=== PATIENT | female | born 1955 | race Caucasian/White ===

== ENCOUNTER → 2019-05-06 10:28 | Outpatient (CLI) | payer MEDICARE, SELFPAY ==
[2019-05-06 12:23] LABS: Absolute Lymphocyte Count 1.42 X10^3/uL (0.83-4.51); Absolute Neutrophil Count 1.7 X10^3/uL (2.0-7.7); Basophil# 0.03 X10^3/uL; Basophil% 0.8 % (0-1); Eosinophil# 0.14 X10^3/uL; Eosinophils% 3.8 % (0-5); Hematocrit 37.9 % (37-47); Hemoglobin 12.8 g/dL (12.0-15.0); Lymphocyte # 1.42 X10^3/ul (4.0); Lymphocyte % 38.3 % (19-41); Mean Corp Hgb Conc 33.8 g/dL (32-36); Mean Corpuscular Hgb 32.7 pg (27.0-32.0); Mean Corpuscular Volume 96.7 fL (81-99); Mean Platelet Vol. 10.9 fl (6.2-12.0); Monocyte# 0.42 X10^3/uL; Monocyte% 11.3 % (0-10); NRBC Flagged by Analyzer 0 % (0-5); Neutrophil % 45.8 % (47-70); Platelet Count 226 K/mm3 (150-450); RBC Distribution Width CV 12.4 % (11.6-14.6); Red Blood Count 3.92 M/mm3 (4.2-5.4); White Blood Count 3.7 K/mm3 (4.4-11.0)
[2019-05-06 12:46] LABS: ALB/GLOB Ratio 1.2 RATIO (0.9-2.4); AST(SGOT) 17 U/L (15-37); Alanine Aminotransfer ALT/SGPT 22 U/L (13-56); Alkaline Phosphatase 42 U/L (45-117); Anion Gap 9 (5-15); BUN 12 mg/dL (7-18); BUN/Creat Ratio 14.8 RATIO (10-20); Calcium,Total 9.3 mg/dL (8.5-10.1); Chloride 106 mmol/L (98-107); Cholesterol 250 mg/dL (200); Creatinine, Serum 0.81 mg/dL (0.55-1.02); EST Glomerular Filtration Rate 75 mL/min (>60); Est Glom Filt Rate - Afr Amer 91 mL/min (>60); Globulin 3.3 g/dL (2.2-4.2); Glucose 99 mg/dL (74-106); High Density Lipoprotein 75 mg/dL; Potassium 4.3 mmol/L (3.5-5.1); Protein, Total 7.3 g/dL (6.4-8.2); Sodium Level 141 mmol/L (136-145); Thyroid Stim Hormone (TSH) 1.58 uIU/mL (0.358-3.74); Triglycerides 118 mg/dL; Very Low Density Lipoprotein 24 mg/dL (5-40)
== END ==
PROVIDERS: Family Provider Family Medicine; PCP Family Medicine; Visit Provider Family Medicine
DX: E78.5 Hyperlipidemia, unspecified (principal); R53.83 Other fatigue
CPT/HCPCS: 36415; 80053; 80061; 84443; 85025

== ENCOUNTER → 2021-01-28 10:01 | Outpatient (CLI) | payer MEDICARE, SELFPAY ==
[2021-01-28 12:49] LABS: Absolute Lymphocyte Count 1.63 X10^3/uL (0.83-4.51); Absolute Neutrophil Count 2.1 X10^3/uL (2.0-7.7); Basophil# 0.03 X10^3/uL; Basophil% 0.7 % (0-1); Eosinophil# 0.21 X10^3/uL; Eosinophils% 4.7 % (0-5); Hematocrit 39.5 % (37-47); Hemoglobin 12.9 g/dL (12.0-15.0); Lymphocyte # 1.63 X10^3/ul (0.83-4.51); Lymphocyte % 36.8 % (19-41); Mean Corp Hgb Conc 32.7 g/dL (32-36); Mean Corpuscular Hgb 31.5 pg (27.0-32.0); Mean Corpuscular Volume 96.6 fL (81-99); Mean Platelet Vol. 10.6 fl (6.2-12.0); Monocyte# 0.41 X10^3/uL; Monocyte% 9.3 % (0-10); NRBC Flagged by Analyzer 0 % (0-5); Neutrophil # 2.14 X10^3/uL (2.7-7.7); Neutrophil % 48.3 % (47-70); Platelet Count 265 K/mm3 (150-450); RBC Distribution Width CV 12.4 % (11.6-14.6); RBC Distribution Width SD 44.4 fl (35.1-43.9); Red Blood Count 4.09 M/mm3 (4.2-5.4); White Blood Count 4.4 K/mm3 (4.4-11.0)
[2021-01-28 13:06] LABS: ALB/GLOB Ratio 1.3 RATIO (0.9-2.4); AST(SGOT) 14 U/L (15-37); Alanine Aminotransfer ALT/SGPT 23 U/L (13-56); Albumin, Serum 4.3 g/dL (3.2-5.0); Alkaline Phosphatase 38 U/L (45-117); Anion Gap 5 (5-15); BUN 15 mg/dL (7-18); BUN/Creat Ratio 16.6 RATIO (10-20); Calcium,Total 9.3 mg/dL (8.5-10.1); Chloride 104 mmol/L (98-107); Cholesterol 282 mg/dL (200); EST Glomerular Filtration Rate 66 mL/min (>60); Est Glom Filt Rate - Afr Amer 80 mL/min (>60); Globulin 3.4 g/dL (2.2-4.2); Glucose 97 mg/dL (74-106); High Density Lipoprotein 79 mg/dL; Potassium 3.7 mmol/L (3.5-5.1); Protein, Total 7.7 g/dL (6.4-8.2); Sodium Level 139 mmol/L (136-145); Thyroid Stim Hormone (TSH) 1.88 uIU/mL (0.358-3.74); Triglycerides 163 mg/dL; Very Low Density Lipoprotein 33 mg/dL (5-40)
== END ==
PROVIDERS: PCP Family Medicine; Referring Provider Family Medicine; Visit Provider Family Medicine
DX: Z00.00 Encounter for general adult medical examination without abnormal findings (principal); E78.5 Hyperlipidemia, unspecified; R53.83 Other fatigue
CPT/HCPCS: 36415; 80053; 80061; 84443; 85025

== ENCOUNTER → 2021-04-05 12:50 | Outpatient (CLI) | payer MEDICARE, SELFPAY ==
--- NOTE | 2021-04-05 12:53 | RAD_ITS ---
STUDY: X-RAY - PELVIS AND RIGHT HIP REASON FOR EXAM: Right hip pain. TECHNIQUE: 2 views of the pelvis and hip. COMPARISON: None. FINDINGS: There are pelvic phleboliths. Normal bilateral iliac wings, sacroiliac joints and visualized sacrum. Normal bilateral superior and inferior pubic rami. Normal pubic symphysis. Normal bilateral ischial tuberosities. Normal visualized femoral head. Normal acetabulum. There is mild joint space narrowing of the superior medial right hip joint. RAD/HIP, UNI W/ Pelvis 2-3 Views IMPRESSION: Mild right hip arthrosis. Electronically Signed: Samir Nolasco MD at 13:22 EDT Tel , Service support ,
== END ==
PROVIDERS: PCP Family Medicine; Referring Provider Family Medicine; Visit Provider Family Medicine
DX: M25.551 Pain in right hip (principal)
CPT/HCPCS: 73502

== ENCOUNTER → 2022-06-29 | Outpatient (CLI) | payer MEDICARE, SELFPAY ==
[2022-06-29 12:43] LABS: Absolute Lymphocyte Count 1.44 X10^3/uL (0.83-4.51); Absolute Neutrophil Count 1.6 X10^3/uL (2.0-7.7); Basophil# 0.03 X10^3/uL; Basophil% 0.8 % (0-1); Eosinophils% 5.5 % (0-5); Hematocrit 38.3 % (37-47); Hemoglobin 12.9 g/dL (12.0-15.0); Lymphocyte # 1.44 X10^3/ul (0.83-4.51); Lymphocyte % 39.5 % (19-41); Mean Corp Hgb Conc 33.7 g/dL (32-36); Mean Corpuscular Hgb 32.9 pg (27.0-32.0); Mean Corpuscular Volume 97.7 fL (81-99); Mean Platelet Vol. 10.4 fl (6.2-12.0); Monocyte# 0.38 X10^3/uL; Monocyte% 10.4 % (0-10); NRBC Flagged by Analyzer 0 % (0-5); Neutrophil % 43.8 % (47-70); Platelet Count 250 K/mm3 (150-450); RBC Distribution Width CV 12.5 % (11.6-14.6); RBC Distribution Width SD 45.2 fl (35.1-43.9); Red Blood Count 3.92 M/mm3 (4.2-5.4); White Blood Count 3.7 K/mm3 (4.4-11.0)
[2022-06-29 12:59] LABS: Vitamin B12 257 pg/mL (211-911)
[2022-06-29 13:03] LABS: ALB/GLOB Ratio 1.2 RATIO (0.9-2.4); AST(SGOT) 17 U/L (15-37); Alanine Aminotransfer ALT/SGPT 19 U/L (13-56); Albumin, Serum 4.2 g/dL (3.2-5.0); Alkaline Phosphatase 36 U/L (45-117); Anion Gap 9 (5-15); BUN 14 mg/dL (7-18); BUN/Creat Ratio 15.7 RATIO (10-20); Calcium,Total 9.5 mg/dL (8.5-10.1); Chloride 106 mmol/L (98-107); Cholesterol 260 mg/dL (200); Creatinine, Serum 0.89 mg/dL (0.55-1.02); EST Glomerular Filtration Rate 67 mL/min (>60); Est Glom Filt Rate - Afr Amer 81 mL/min (>60); Globulin 3.4 g/dL (2.2-4.2); Glucose 88 mg/dL (74-106); High Density Lipoprotein 74 mg/dL; Iron 74 ug/dL (50-170); Potassium 3.6 mmol/L (3.5-5.1); Protein, Total 7.6 g/dL (6.4-8.2); Sodium Level 141 mmol/L (136-145); Thyroid Stim Hormone (TSH) 1.57 uIU/mL (0.358-3.74); Triglycerides 101 mg/dL; Very Low Density Lipoprotein 20 mg/dL (5-40)
== END | disposition home or self-care (01) ==
LOC: MTLAB 10:29
PROVIDERS: PCP Family Medicine; Referring Provider Family Medicine; Visit Provider Family Medicine
DX: Z00.00 Encounter for general adult medical examination without abnormal findings (principal); D51.9 Vitamin B12 deficiency anemia, unspecified; D50.9 Iron deficiency anemia, unspecified; E78.5 Hyperlipidemia, unspecified
CPT/HCPCS: 36415; 80053; 80061; 82607; 83540; 84443; 85025

== ENCOUNTER → 2024-03-06 | Outpatient (CLI) | payer MEDICARE, SELFPAY ==
[2024-03-06 15:19] LABS: Absolute Lymphocyte Count 1.89 X10^3/uL (0.83-4.51); Absolute Neutrophil Count 2.7 X10^3/uL (2.0-7.7); Basophil# 0.04 X10^3/uL; Basophil% 0.7 % (0-1); Eosinophil# 0.31 X10^3/uL; Eosinophils% 5.8 % (0-5); Hematocrit 38.5 % (37-47); Hemoglobin 12.6 g/dL (12.0-15.0); Lymphocyte # 1.89 X10^3/ul (0.83-4.51); Lymphocyte % 35.1 % (19-41); Mean Corp Hgb Conc 32.7 g/dL (32-36); Mean Corpuscular Hgb 31.3 pg (27.0-32.0); Mean Corpuscular Volume 95.5 fL (81-99); Mean Platelet Vol. 10.6 fl (6.2-12.0); Monocyte% 7.4 % (0-10); NRBC Flagged by Analyzer 0 % (0-5); Neutrophil # 2.73 X10^3/uL (2.7-7.7); Neutrophil % 50.6 % (47-70); Platelet Count 264 K/mm3 (150-450); RBC Distribution Width CV 12.9 % (11.6-14.6); RBC Distribution Width SD 45.3 fl (35.1-43.9); Red Blood Count 4.03 M/mm3 (4.2-5.4); White Blood Count 5.4 K/mm3 (4.4-11.0)
[2024-03-06 16:03] LABS: Vitamin B12 242 pg/mL (211-911); Vitamin D,25 Hydroxy 34.1 ng/mL
[2024-03-06 16:08] LABS: ALB/GLOB Ratio 1.2 RATIO (0.9-2.4); AST(SGOT) 19 U/L (15-37); Alanine Aminotransfer ALT/SGPT 19 U/L (13-56); Albumin, Serum 4.1 g/dL (3.2-5.0); Alkaline Phosphatase 43 U/L (45-117); Anion Gap 8 (5-15); BUN 13 mg/dL (7-18); BUN/Creat Ratio 15.9 RATIO (10-20); Calcium,Total 9.5 mg/dL (8.5-10.1); Chloride 106 mmol/L (98-107); Cholesterol 279 mg/dL (200); Creatinine, Serum 0.82 mg/dL (0.55-1.02); EST Glomerular Filtration Rate 73 mL/min (>60); Est Glom Filt Rate - Afr Amer 89 mL/min (>60); Globulin 3.5 g/dL (2.2-4.2); Glucose 98 mg/dL (74-106); High Density Lipoprotein 84 mg/dL; Iron 109 ug/dL (50-170); Potassium 3.5 mmol/L (3.5-5.1); Protein, Total 7.6 g/dL (6.4-8.2); Sodium Level 138 mmol/L (136-145); Thyroid Stim Hormone (TSH) 1.78 uIU/mL (0.358-3.74); Triglycerides 127 mg/dL; Very Low Density Lipoprotein 25 mg/dL (5-40)
== END | disposition home or self-care (01) ==
LOC: BFHLAB 11:41
PROVIDERS: PCP Family Medicine; Referring Provider Family Medicine; Visit Provider Family Medicine
DX: Z00.00 Encounter for general adult medical examination without abnormal findings (principal); D51.9 Vitamin B12 deficiency anemia, unspecified; D50.9 Iron deficiency anemia, unspecified; E78.5 Hyperlipidemia, unspecified; E55.9 Vitamin D deficiency, unspecified
CPT/HCPCS: 36415; 80053; 80061; 82306; 82607; 83540; 84443; 85025

== ENCOUNTER 2025-07-03 08:16 | Emergency (ER) | payer MEDICARE, SELFPAY ==
[2025-07-03 08:17] VITALS: BP 126/78; PULSE 97; RESP 14; TEMP 36.2; O2SAT 99
--- NOTE | 2025-07-03 08:45 | EKG12_ITS ---
Test Reason : BACK PAIN Blood Pressure : */* mmHG Vent. Rate : 95 BPM Atrial Rate : 95 BPM P-R Int : 132 ms QRS Dur : 86 ms QT Int : 342 ms P-R-T Axes : 56 -60 102 degrees QTcB Int : 429 ms Sinus rhythm with Premature atrial complexes Left axis deviation Septal infarct , age undetermined Abnormal ECG Confirmed by Enrico Cardona ([id number]), script editor AQUILINO MARTINEZ ([id number]) on 07/04/2025 5:49:19 AM Referred By: Confirmed By: Enrico Cardona
--- NOTE | 2025-07-03 08:50 | EDS_ITS ---
HPI History of Present Illness Chief Complaint: Back Informant: patient and spouse/S.O. Narrative Narrative: Patient is a 70-year-old female with no significant past medical history presenting with back and abdominal pain as well as episode of lightheadedness. Patient states on Monday, 3 days ago she was helping her move things and was doing a lot of heavy lifting. But now she started to get sore in her lower back. On Monday she states that pain became more severe it is in her lower and mid back and wraps around to her abdomen. She has not been sleeping well at night because of this. The symptoms are persisting. She feels that she is getting spasms. She is the pain is even going up into her neck. It is worse with movements and certain positions. She has been taking back and body (she believes its acetaminophen) with some help. She notes this morning she started to feel lightheaded and had to lay on the floor. She also states that she has not been feeling well she has not been eating or drinking much. She has had nausea and chills. She has had headaches. Denies any URI symptoms. Denies any urinary symptoms. Denies any fevers. No vomiting or change in her bowel movements. States he had a normal bowel movement after lunch yesterday. Denies any chest pain or shortness of breath. Due to the severity of her symptoms and her getting lightheaded this morning she came in for further evaluation. She denies any swelling of her legs. No numbness or tingling appreciated. PFSH PFSH Home Medications ?Medication ?Instructions ?Recorded ?Last Taken ?Type cyclobenzaprine 10 mg tablet 10 mg PO TID PRN Muscle S pasm #20 07/03/25 Unknown Rx TABLETS ondansetron 4 mg disintegrating 4 mg PO Q8H PRN PRN Na usea #10 tabs 07/03/25 Unknown Rx tablet Allergy/AdvReac Type Severity Reaction Status Date / Time No Known Allergies Allergy Verified 07/03/25 08:17 [facility] ED Constitutional Constitutional ED: Reports chills; Denies fever(s) Eyes Eyes: Denies change in vision Respiratory/Chest Respiratory/Chest: Denies dyspnea Gastrointestinal Gastrointestinal: Reports abdominal pain Genitourinary Genitourinary ED: Denies dysuria or urinary frequency Musculoskeletal Musculoskeletal: Reports back pain, myalgias and neck pain Integumentary Denies rash Neurologic Neurologic: Reports headache(s) and weakness; Denies paresthesias Psychiatric Psychiatric: Denies anxiety Hematologic/Lymphatic Hematologic/Lymphatic: Denies easy bleeding or easy bruising EXAM Physical Exam Const Vital Signs: 07/03/25 08:17 07/03/25 10:17 07/03/25 10:37 Temperature 97.1 F L 97.7 F L Temperature Source Temporal Temporal Pulse Rate 97 87 Pulse Rate [Lying] 82 Pulse Rate [Sitting (for 1 minute prior to obtaining)] 83 Pulse Rate [Standing (for 1 minute prior to obtaining)] 93 Respiratory Rate 14 18 Blood Pressure 126/78 H 119/66 Blood Pressure [Lying] 113/63 Blood Pressure [Sitting (for 1 minute prior to obtaining)] 99/77 Blood Pressure [Standing (for 1 minute prior to obtaining)] 108/73 Blood Pressure Mean 94 83 Blood Pressure Mean [Lying] 79 Blood Pressure Mean [Sitting (for 1 minute prior to obtaining)] 84 Blood Pressure Mean [Standing (for 1 minute prior to obtaining)] 84 Pulse Ox 99 Oxygen Delivery Method Room Air Room Air Positive well nourished General Appearance ED: NAD HEENT Reports dry mucous membranes HEENT Narrative: Normal oropharynx. No nasal congestion present Mouth ED: Yes dry mucous membranes Mouth: dry mucous membranes Eyes PERRL Neck supple and no JVD Resp normal respiratory effort and clear to auscultation bilaterally Cardio regular rate, regular rhythm and no murmurs Cardio Narrative: 2+ radial and PT pulses present GI normal to inspection, nondistended, normoactive bowel sounds and soft to palpation Inspection: Negative for abdominal distention Palpation: Negative for tender or guarding Back/Spine normal to inspection Back/Spine Narrative: No midline spinal tenderness presents, diffuse muscle tenderness and tightness present General Back: Negative for CVA tenderness Cervical Spine: paracervical muscle tenderness Thoracic Spine / Upper Back: paraspinal muscle tenderness Lumbar Spine / Lower Back: ROM limited Neuro oriented x3 and no sensory deficits noted Sensorium / Orientation: alert Motor Exam: strength 5/5 throughout Psych mental status grossly normal Skin no rashes or lesions noted and no wounds MDM MDM MDM Narrative Medical decision making narrative: Patient is evaluated for myalgias and episode of lightheadedness. Notes since she has been having these body aches has been feeling good and is not been eating as much which makes her feel nauseous. Today had an episode of lightheadedness and eniluracil to the ground. Differential includes dehydration, SOWMYA, rhabdomyolysis, arrhythmia, deferred abdominal pain, pancreatitis and urinary tract infection. Patient given IV fluids and Toradol in the emergency room. Workup including CBC, CMP, lipase and urinalysis is obtained. CBC largely normal with no leukocytosis and normal hemoglobin. No left shift present. BMP shows normal BUN and creatinine however sure anion gap is elevated 18 and her bicarb is low at 16.4. This is consistent with some dehydration. After liter of IV fluids orthostatic vital signs obtained. They are negative. She no longer feels lightheaded but continues to have some bodyaches. Will be given a dose of flexeril and DC'd home. Discomfortable this plan of care. Is counseled on the risk of increased confusion, loss of balance, sleepiness associated with muscle relaxers. Verbalizes understanding of this. is with her. Given return precautions. Counseled on pushing fluids at home as well as alternate ibuprofen and Tylenol for pain relief. Is also given a prescription for Zofran to be used as needed. Lab Data Attestation: I reviewed the patient's lab results. Labs: Laboratory Results - last 24 hr 07/03/25 07/03/25 09:09 09:35 WBC 6.4 RBC 3.80 L Hgb 12.2 Hct 34.7 L MCV 91.3 MCH 32.1 H MCHC 35.2 RDW Std Deviation 40.7 RDW Coeff of Sylvie 12.1 Plt Count 187 MPV 10.1 Immature Gran % (Auto) 0.300 Neut % (Auto) 77.7 H Lymph % (Auto) 11.9 L [place] % (Auto) 9.4 Eos % (Auto) 0.2 Baso % (Auto) 0.5 Absolute Neuts (auto) 5.0 Absolute Lymphs (auto) 0.76 L Nucleated RBC % 0 Sodium 134 Potassium 3.8 Chloride 99 Carbon Dioxide 16.4 L Anion Gap 18 H BUN 8 Creatinine 0.85 Estim Creat Clear Calc 45.14 L Est GFR (MDRD) Non-Af 73 BUN/Creatinine Ratio 9.4 L Glucose 135 H Calcium 9.3 Total Bilirubin 0.45 AST 21 ALT 16 Alkaline Phosphatase 41 Total Creatine Kinase 63 Total Protein 7.6 Albumin 4.3 Globulin 3.3 Albumin/Globulin Ratio 1.3 Lipase 20 Urine Color Yellow Urine Clarity Clear Urine pH 7.0 Ur Specific [place] 1.010 Urine Protein 15 H Urine Glucose (UA) Normal Urine Ketones Negative Urine Occult Blood Negative Urine Nitrite Negative Urine Bilirubin Negative Urine Urobilinogen Normal Ur Leukocyte Esterase Negative Urine RBC 0 SEEN Urine WBC 0 SEEN Ur Squamous Epith Cells 0 SEEN Urine Bacteria 0 SEEN Urine Mucus 0 SEEN Rhythm Strip Rhythm Strip: Sinus Rhythm Rate: 95 Ectopy: None EKG Initial EKG: Attestation: I personally reviewed and interpreted this EKG as follows: Interpretation: Sinus Rhythm Comments: Normal sinus rhythm at a rate of 95 bpm with PACs Left axis deviation Normal intervals Normal ST segment Prior EKG tracings: not available for review Prior: No Prior Discharge Plan Triage Chief Complaint: Back ED Provider: Dennise Mobley Dx/Rx/DC Orders Clinical Impression: Back muscle spasm, Lightheaded, Acute dehydration Instructions: ED Back Spasm, No Trauma, ED Dehydration (Adult) Prescriptions: New cyclobenzaprine 10 mg tablet 10 mg PO TID PRN (Reason: Muscle Spasm) Qty: 20 0RF ondansetron 4 mg tablet,disintegrating 4 mg PO Q8H PRN PRN (Reason: Nausea) Qty: 10 0RF Primary Care Provider: Berta Mar Referrals: Berta Mar DO [Primary Care Provider, Family Practice] Activity Restrictions/Additional Instructions: Your workup today showed signs of dehydration were otherwise normal. I would recommend alternate ibuprofen and Tylenol for further pain control. You been prescribed a muscle relaxer. Make sure you are pushing fluids at home and eating regular if meals/snacks. If you develop chest pain or worsening symptoms or you have a fever please return the emergency room. Print Language: Albanian Disposition Disposition: Home, Self Care
[2025-07-03] MEDS: 0.9% Normal Saline (1000mL) 1,000 ML 1000 ML IV (09:09)
[2025-07-03 09:15] VITALS: BMI 22.8
[2025-07-03 09:30] LABS: Hematocrit 34.7 % (37-47); Hemoglobin 12.2 g/dL (12.0-15.0); Immature Granulocytes Count 0.020 X10^3/uL (0.0-0.0); Mean Corp Hgb Conc 35.2 g/dL (32-36); Mean Corpuscular Volume 91.3 fL (81-99); Mean Platelet Vol. 10.1 fl (6.2-12.0); NRBC Flagged by Analyzer 0 % (0-5); Platelet Count 187 K/mm3 (150-450); RBC Distribution Width CV 12.1 % (11.6-14.6); RBC Distribution Width SD 40.7 fl (35.1-43.9); Red Blood Count 3.80 M/mm3 (4.2-5.4); White Blood Count 6.4 K/mm3 (4.4-11.0)
--- OUTSIDE RECORDS SUMMARY | 2025-07-03 09:46 | XMS RPT_ITS | CCD ---
Author Organization [facility] Care Team Providers Care 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 Name Role Phone Berta Mar DO Primary Care Provider [phone] Malys, Berta Referring Unavailable Malys, Berta Attending Unavailable Malys, Berta Primary Care Unavailable Malys DOBerta Primary Care Provider [phone] MALYS, BERTA A Primary Care Unavailable MALYS, BERTA A Attending Unavailable MALYS, BERTA A Referring Unavailable MALYS, BERTA A Primary Care Unavailable KEE MARRERO II Attending Unavailabl e MALYS, BERTA A Primary Care Unavailable LAKSHMI SANTIAGO Attending Unavailable SELF Referring Unavailable Allergies Allergy Classification Reported Allergen(s) Allergy Type Date of Onset Reaction(s) Facility Apples (1 source) Apples Food Allergy 6 [facility] [place] Work Phone: bacitracin / neomycin / polymyxin b (1 source) bacitracin / neomycin / polymyxin b Drug Allergy 6 [facility] (6 sources) Apples; Translations: [APPLES] Propensity to adverse reactions to food 6 [facility] [place] Work Phone: (6 sources) bacitracin / neomycin / polymyxin b; Translations: [NEOMYCIN-BACITRA BRYANNA-POLYMYXIN] Drug Allergy 6 [facility] (6 sources) environmental [Other] Propensity to adverse reactions [address] [place] [address] Work Phone: (1 source) OTHER; Translations: [OTHER] Propensity to adverse reactions (disorder) [address] [place] [address] Repository Medications Current Medications Medication Drug Class(es) Dates Sig (Normalized) Sig (Original) ascorbic acid 1000 mg oral tablet (6 sources) Vitamin C take 1 tablet by mouth once daily Ascorbic Acid (VITAMIN C) 1,000 mg tablet Take 1,000 mg by mouth once daily. Active Comment on above: Take 1,000 mg by gus th once daily. Aspirin (6 sources) Platelet Aggregation Inhibitor, Nonsteroidal Anti-inflammatory Drug ASPIRIN ORAL Take by mouth. Active ASPIRIN ORAL Ney e by mouth. 0 Active Comment on above: Take by mouth. B-complex with vitamin C ( TAMIN B COMPLEX-C ORAL) (6 sources) B-complex with v itamin C (VITAMIN B COMPLEX-C ORAL) Take by mouth. Active B-complex with v itamin C (VITAMIN B COMPLEX-C ORAL) Take by mouth. 0 Active Comment on above: Take by mouth. benoxinate hydrochloride 4 mg/ml / fluorescein sodium 3 mg/ml ophthalmic solution (3 sources) Diagnostic Dye Start: 09-18-2024 End: 09-19-2024 fluorescein-benoxinat e 0.3-0.4 % 1 Drop (FLURESS) Start: 09-18-2024 End: 09-19-2024 1 Drop, BOTH EYES, DIRECT ED, Starting on Mon09/18/24 at 1400, Until Amy 09/19/24 at 0159, Administer for applanation tonometry. In the event of a Fluress shortage, administer Chery-Fluor 1 drop into both eyes as directed for applanation tonometry Start: 09-06-2023 End: 09-07-2023 fluorescein-benoxinate 0.3-0 .4 % 1 Drop (FLURESS) cholecalciferol, vitamin D3, (VITAMIN D3 ORAL) (6 sources) cholecalciferol, vitamin D3, (VITAMIN D3 ORAL) Take by mouth. Active cholecalciferol, vitamin D3, (VITAMIN D3 ORAL) Take by mouth. 0 Active Comment on above: Take by mouth. phenylephrine hydrochloride 25 mg/ml ophthalmic solution (1 source) alpha-1 Adrenergic Agonist Start: 09-06-2023 End: 09-07-2023 PHENYLephrine 2.5 % 1 Drop (AK-DILATE, MILTON-SYNEPHRINE) tropicamide 10 mg/ml ophthalmic solution (3 sources) Anticholinergic Start: 09-18-2024 End: 09-19-2024 tropicamide 1 % 1 Drop (MYDRIACYL) Start: 09-18-2024 End: 09-19-2024 1 Drop, BOTH EYES, DIRECT ED, Starting on Mon09/18/24 at 1400, Until Amy 09/19/24 at 0159, Administer for dilation Start: 09-06-2023 End: 09-07-2023 tropicamide 1 % 1 Drop (MYDR IACYL) Turmeric extract (5 sources) TURMERIC ORAL Ta ke by mouth. Active TURMERIC ORAL Ta ke by mouth. 0 Active Comment on above: Take by mouth. Zinc (6 sources) ZINC ORAL Take b y mouth. Active ZINC ORAL Take b y mouth. 0 Active Comment on above: Take by mouth. Problems Active Problems Problem Classification Problem Date Documented Da te Episodic/Chronic Blindness and vision defects (20 sources) Bilateral hyperopia of eyes; Translations: [Hypermetropia, bilateral] Onset: 07-17-2018 Episodic Cataract (9 sources) Bilateral senile combined form cataracts of eyes; Translations: [Combined forms of age-related cataract, bilateral] Onset: 07-17-2018 Chronic Disorders of lipid metabolism (6 sources) Hyperlipidemia; Translations: [Hyperlipidemia, unspecified] Onset: 09-08-2011 09-08-2011 Chronic Glaucoma (12 sources) Preglaucoma, unspecified, bilateral; Translations: [Preglaucoma, unspecified] Onset: 07-17-2018 Chronic Hemorrhoids (6 sources) Hemorrhoids; Translations: [Unspecified hemorrhoids] 12-04-2007 Episodic Occlusion or stenosis of precerebral arteries (6 sources) Carotid artery occlusion; Translations: [Occlusion and stenosis of unspecified carotid artery] Onset: 12-24-2007 06-04-2010 Chronic Other eye disorders (2 sources) Excess skin of eyelid; Translations: [Dermatochalasis of right upper eyelid] Onset: 07-17-2018 Episodic Other upper respiratory disease (6 sources) Allergic rhinitis; Translations: [Allergic rhinitis, unspecified] Onset: 04-27-2006 06-04-2010 Chronic Past or Other Problems Problem Classification Problem Date Documented Date Episodic/Chronic Abdominal pain (6 sources) Epigastric pain; Translations: [Epigastric pain] Onset: 07-04-2012 07-04-2012 Episodic Deficiency and other anemia (6 sources) Anemia; Translations: [Anemia, unspecified] Onset: 09-08-2011 09-08-2011 Episodic Other eye disorders (7 sources) Dermatochalasis of right upper eyelid; Translations: [Dermatochalasis] Onset: 07-17-2018 09-06-2023 Episodic Spondylosis; intervertebral disc disorders; other back problems (6 sources) Neck pain; Translations: [Cervicalgia] Onset: 12-17-2010 10-04-2021 Episodic Syncope (4 sources) Syncope and collapse; Translations: [Syncope and collapse] Onset: 12-17-2010 Resolved: 07-12-2016 10-04-2021 Episodic Results Test Name Value Interpretation Reference Range Facility OCT OPTIC NERVE CIRRUS OU (B OTH EYES)on 09-18-2024 [facility] Radiology Study observation (narrative) [facility] VISUAL FIELD 24-2 OU (BOTH E YES)on 09-18-2024 [facility] Radiology Study observation (narrative) [facility] CNCOon 04-03-2024 [facility] HNO ID: [id number] Author: COORDINATOR, MAMMOGRAPHY, ? Service: ? Author Type: Physician Type: Letter Filed: 04/03/2024 20:38 Note Text: April 04, 2024 PID: [id number] [address] [place] [address] Dear Ms. Gonzales, We are pleased to inform you that the results of your recent breast imaging exam on 04/03/2024 are normal. Your mammogram demonstrates that you have dense breast tissue, which could hide abnormalities. Dense breast tissue, in and of itself, is a relatively common condition. Therefore, this information is not provided to cause undue concern; rather, it is to raise your awareness and promote discussion with your health care provider regarding the presence of dense breast tissue in addition to other risk factors. Early detection of cancer is very important. We also understand recommendations regarding breast cancer screening are controversial. Please discuss with your primary care provider which strategy is best for you and whether a mammogram is right for you. Your imaging studies and report will be kept on file at [facility] as part of your permanent medical record and are available for your continuing care. Thank you for allowing us to help in meeting your health care needs. Sincerely, Dr. Milan Interpreting Radiologist [facility] (Normal over 40) Normal [facility] DBT Breast - bilateral scree koreygon 04-03-2024 IMPRESSION: NEGATIVE There is no mammographic evidence of malignancy. A 1 year screening mammogram is recommended. Lindsey randhawa/ken:04/03/2024 20:38:07 Dance Costume Designer(s): RT Migdalia(R)(M), [facility] letter sent: Normal over 40 Mammogram BI-RADS: 1 Negative Multiple national specialty organizations have released breast cancer screening guidelines for women at average risk for developing breast cancer - guidelines that are based on both evidence and opinion, yet differ on when to start and how often to screen for breast cancer. With representation from Breast Imaging, Internal Medicine, Women's Health, Family Medicine, and Medical/Surgical Oncology, the [facility] has carefully reviewed the data and reached the following consensus: 1) All women should engage in shared decision-making with their providers to decide when to start and how often to screen; 2) All women should have the opportunity to start screening mammography at age 40; 3) For women ages 45-55, we recommend annual screening mammograms; 4) For women ages 55 and over, we support both the transition from an annual to a biennial interval if this aligns more with patient's values and preferences, or continuation with annual screening; 5) All women should discuss with their providers when to stop screening mammograms. Energy Assistant: Ken Transcribe Date/Time: Apr 03 2024 11:24A Dictated by: LINDSEY MILAN MD This examination was interpreted and the report reviewed and electronically signed by: LINDSEY MILAN MD on Apr 03 2024 8:38PM [facility] DIVISION OF RADIOLOGY * * *Final Report* * * DATE OF EXAM: Apr 03 2024 11:46AM [facility] 0582 - [facility] SCREENING W LYLE / PROCEDURE REASON: Z12.31 * * * * Physician Interpretation * * * * RESULT: #[id number] - [facility] SCREENING W LYLE BILATERAL DIGITAL SCREENING MAMMOGRAM TOMOSYNTHESIS WITH CAD: 04/03/2024 HISTORY: Z10.08 / Screening Mammogram-Patient reports NO symptoms. /SEE TECH NOTE /priors available for comparison. RESULT: TECHNIQUE: The study was acquired using full field digital technology and interpreted from soft copy. Digital Breast Tomosynthesis (DBT) images were obtained and used to assist in the interpretation of this examination. Current study was also evaluated with a Computer Aided Detection (CAD). Comparison is made to exams dated: 12/31/2018 mammogram and 03/31/2016 mammogram - [facility]. The breasts are heterogeneously dense, which may obscure small masses. No significant masses, calcifications, or other findings are seen in either breast. There has been no significant interval change. DIVISION OF RADIOLOGY Provider, [facility] [place] - 04/03/2024 * * *Final Report* * * DATE OF EXAM: Apr 03 2024 11:46AM [facility] 0582 - [facility] SCREENING W LYLE / PROCEDURE REASON: Z12.31 * * * * Physician Interpretation * * * * RESULT: #[id number] - [facility] SCREENING W LYLE BILATERAL DIGITAL SCREENING MAMMOGRAM TOMOSYNTHESIS WITH CAD: 04/03/2024 HISTORY: Z10.08 / Screening Mammogram-Patient reports NO symptoms. /SEE TECH NOTE /priors available for comparison. RESULT: TECHNIQUE: The study was acquired using full field digital technology and interpreted from soft copy. Digital Breast Tomosynthesis (DBT) images were obtained and used to assist in the interpretation of this examination. Current study was also evaluated with a Computer Aided Detection (CAD). Comparison is made to exams dated: 12/31/2018 mammogram and 03/31/2016 mammogram - [facility]. The breasts are heterogeneously dense, which may obscure small masses. No significant masses, calcifications, or other findings are seen in either breast. There has been no significant interval change. IMPRESSION IMPRESSION: NEGATIVE There is no mammographic evidence of malignancy. A 1 year screening mammogram is recommended. Lindsey randhawa/ken:04/03/2024 20:38:07 Dance Costume Designer(s): RT Migdalia(R)(M), [facility] letter sent: Normal over 40 Mammogram BI-RADS: 1 Negative Multiple national specialty organizations have released breast cancer screening guidelines for women at average risk for developing breast cancer - guidelines that are based on both evidence and opinion, yet differ on when to start and how often to screen for breast cancer. With representation from Breast Imaging, Internal Medicine, Women's Health, Family Medicine, and Medical/Surgical Oncology, the [facility] has carefully reviewed the data and reached the following consensus: 1) All women should engage in shared decision-making with their providers to decide when to start and how often to screen; 2) All women should have the opportunity to start screening mammography at age 40; 3) For women ages 45-55, we recommend annual screening mammograms; 4) For women ages 55 and over, we support both the transition from an annual to a biennial interval if this aligns more with patient's values and preferences, or continuation with annual screening; 5) All women should discuss with their providers when to stop screening mammograms. Energy Assistant: Ken Transcribe Date/Time: Apr 03 2024 11:24A Dictated by: LINDSEY MILAN MD This examination was interpreted and the report reviewed and electronically signed by: LINDSEY MILAN MD on Apr 03 2024 8:38PM EST [facility] Radiology Study observation (narrative) [facility] DBT Breast - bilateral scree ningOrdered By: [facility] Provider on 04-03-2024 [facility] SCREENING W TOMOon 04-03 [facility] SCREENING W LYLE * * *Final Report* * * DATE OF EXAM: Apr 03 2024 11:46AM [facility] [id number] - [facility] SCREENING W LYLE / PROCEDURE REASON: Z12.31 * * * * Physician Interpretation * * * * RESULT: #[id number] - [facility] SCREENING W LYLE BILATERAL DIGITAL SCREENING MAMMOGRAM TOMOSYNTHESIS WITH CAD: 04/03/2024 HISTORY: Z12.31 / Screening Mammogram-Patient reports NO symptoms. /SEE TECH NOTE /priors available for comparison. RESULT: TECHNIQUE: The study was acquired using full field digital technology and interpreted from soft copy. Digital Breast Tomosynthesis (DBT) images were obtained and used to assist in the interpretation of this examination. Current study was also evaluated with a Computer Aided Detection (CAD). Comparison is made to exams dated: 12/31/2018 mammogram and 03/31/2016 mammogram - [facility]. The breasts are heterogeneously dense, which may obscure small masses. No significant masses, calcifications, or other findings are seen in either breast. There has been no significant interval change. IMPRESSION: NEGATIVE There is no mammographic evidence of malignancy. A 1 year screening mammogram is recommended. Lindsey randhawa/ken:04/03/2024 20:38:07 Dance Costume Designer(s): RT Migdalia(R)(M), [facility] letter sent: Normal over 40 Mammogram BI-RADS: 1 Negative Multiple national specialty organizations have released breast cancer screening guidelines for women at average risk for developing breast cancer - guidelines that are based on both evidence and opinion, yet differ on when to start and how often to screen for breast cancer. With representation from Breast Imaging, Internal Medicine, Women's Health, Family Medicine, and Medical/Surgical Oncology, the [facility] has carefully reviewed the data and reached the following consensus: 1) All women should engage in shared decision-making with their providers to decide when to start and how often to screen; 2) All women should have the opportunity to start screening mammography at age 40; 3) For women ages 45-55, we recommend annual screening mammograms; 4) For women ages 55 and over, we support both the transition from an annual to a biennial interval if this aligns more with patient's values and preferences, or continuation with annual screening; 5) All women should discuss with their providers when to stop screening mammograms. Energy Assistant: Ken Transcribe Date/Time: Apr 03 2024 11:24A Dictated by: LINDSEY MILAN MD This examination was interpreted and the report reviewed and electronically signed by: LINDSEY MILAN MD on Apr 03 2024 8:38PM EST [id number] Normal [facility] CBC W/Diff, Automatedon 05-2 Absolute Lymph 1.89 X10 3/uL Normal 0.83-4.51 [facility] Comment on above: Performed By: #### L 503.6150, L501.9520, L100.0100, L500.4100, L500.4050, L506.1000, L503.0105 #### [facility] [address] [place], [address] Absolute Neut 2.7 X10 3/uL Normal 2.0-7.7 [facility] Comment on above: Performed By: #### L 503.6150, L501.9520, L100.0100, L500.4100, L500.4050, L506.1000, L503.0105 #### [facility] [address] [place], [address] Basophils/100 WBC (Bld) 0.7 % Normal 0-1 [facility] Comment on above: Performed By: #### L 503.6150, L501.9520, L100.0100, L500.4100, L500.4050, L506.1000, L503.0105 #### [facility] [address] [place], [address] Eosinophils/100 WBC (Bld) 5.8 % High 0-5 [facility] Comment on above: Performed By: #### L 503.6150, L501.9520, L100.0100, L500.4100, L500.4050, L506.1000, L503.0105 #### [facility] [address] [place], [address] Erythrocyte distribution width (RBC) [Ratio] 12.9 % Normal 11.6-14.6 [facility] Comment on above: Performed By: #### L 503.6150, L501.9520, L100.0100, L500.4100, L500.4050, L506.1000, L503.0105 #### [facility] [address] [place], [address] Hematocrit (Bld) [Volume fraction] 38.5 % Normal 37-47 [facility] Comment on above: Performed By: #### L 503.6150, L501.9520, L100.0100, L500.4100, L500.4050, L506.1000, L503.0105 #### [facility] [address] [place], [address] Hemoglobin (Bld) [Mass/Vol] 12.6 g/dL Normal 12.0-15.0 [facility] Comment on above: Performed By: #### L 503.6150, L501.9520, L100.0100, L500.4100, L500.4050, L506.1000, L503.0105 #### [facility] [address] [place], [address] IG% 0.400 Normal 0.0-0.9 [facility] Comment on above: Result Comment: IG% - Immature Granulocytes (promyelocytes, myelocytes and metamyelocytes) > 1% indicates that a LEFT SHIFT is Present. Performed By: #### L 503.6150, L501.9520, L100.0100, L500.4100, L500.4050, L506.1000, L503.0105 #### [facility] [address] [place], [address] Lymphocytes/100 WBC (Bld) 35.1 % Normal 19-41 [facility] Comment on above: Performed By: #### L 503.6150, L501.9520, L100.0100, L500.4100, L500.4050, L506.1000, L503.0105 #### [facility] [address] [place], [address] MCH (RBC) [Entitic mass] 31.3 pg Normal 27.0-32.0 [facility] Comment on above: Performed By: #### L 503.6150, L501.9520, L100.0100, L500.4100, L500.4050, L506.1000, L503.0105 #### [facility] [address] [place], [address] MCHC (RBC) [Mass/Vol] 32.7 g/dL Normal 32-36 [facility] Comment on above: Performed By: #### L 503.6150, L501.9520, L100.0100, L500.4100, L500.4050, L506.1000, L503.0105 #### [facility] [address] [place], [address] MCV (RBC) [Entitic vol] 95.5 fL Normal 81-99 [facility] Comment on above: Performed By: #### L 503.6150, L501.9520, L100.0100, L500.4100, L500.4050, L506.1000, L503.0105 #### [facility] [address] [place], [address] Monocytes/100 WBC (Bld) 7.4 % Normal 0-10 [facility] Comment on above: Performed By: #### L 503.6150, L501.9520, L100.0100, L500.4100, L500.4050, L506.1000, L503.0105 #### [facility] [address] [place], [address] Neutrophils/100 WBC (Bld) 50.6 % Normal 47-70 [facility] Comment on above: Performed By: #### L 503.6150, L501.9520, L100.0100, L500.4100, L500.4050, L506.1000, L503.0105 #### [facility] [address] [place], [address] Nucleated RBC (Bld) [#/Vol] 0 10*3/uL Normal 0-5 [facility] Comment on above: Performed By: #### L 503.6150, L501.9520, L100.0100, L500.4100, L500.4050, L506.1000, L503.0105 #### [facility] [address] [place], [address] Platelet mean volume (Bld) [Entitic vol] 10.6 fL Normal 6.2-12.0 [facility] Comment on above: Performed By: #### L 503.6150, L501.9520, L100.0100, L500.4100, L500.4050, L506.1000, L503.0105 #### [facility] [address] [place], [address] Platelets (Bld) [#/Vol] 264 10*3/uL Normal 150-450 [facility] Comment on above: Performed By: #### L 503.6150, L501.9520, L100.0100, L500.4100, L500.4050, L506.1000, L503.0105 #### [facility] [address] [place], [address] RBC (Bld) [#/Vol] 4.03 10*6/uL Low 4.2-5.4 [facility] Comment on above: Performed By: #### L 503.6150, L501.9520, L100.0100, L500.4100, L500.4050, L506.1000, L503.0105 #### [facility] [address] [place], [address] RDW SD 45.3 fl High 35.1-43.9 [facility] Comment on above: Performed By: #### L 503.6150, L501.9520, L100.0100, L500.4100, L500.4050, L506.1000, L503.0105 #### [facility] [address] [place], [address] WBC (Bld) [#/Vol] 5.4 10*3/uL Normal 4.4-11.0 [facility] Comment on above: Performed By: #### L 503.6150, L501.9520, L100.0100, L500.4100, L500.4050, L506.1000, L503.0105 #### [facility] [address] [place], [address] [facility] Albumin [Mass/Vol] 4.1 g/dL Normal 3.2-5.0 [facility] Comment on above: Performed By: #### L 503.6150, L501.9520, L100.0100, L500.4100, L500.4050, L506.1000, L503.0105 #### [facility] [address] [place], [address] Albumin/Globulin [Mass ratio] 1.2 {ratio} Normal 0.9-2.4 [facility] Comment on above: Performed By: #### L 503.6150, L501.9520, L100.0100, L500.4100, L500.4050, L506.1000, L503.0105 #### [facility] [address] [place], [address] ALK P 43 U/L Low 45-117 [facility] Comment on above: Performed By: #### L 503.6150, L501.9520, L100.0100, L500.4100, L500.4050, L506.1000, L503.0105 #### [facility] [address] [place], [address] ALT [Catalytic activity/Vol] 19 U/L Normal 13-56 [facility] Comment on above: Performed By: #### L 503.6150, L501.9520, L100.0100, L500.4100, L500.4050, L506.1000, L503.0105 #### [facility] [address] [place], [address] AST [Catalytic activity/Vol] 19 U/L Normal 15-37 [facility] Comment on above: Performed By: #### L 503.6150, L501.9520, L100.0100, L500.4100, L500.4050, L506.1000, L503.0105 #### [facility] [address] [place], [address] Bilirubin [Mass/Vol] 0.50 mg/dL Normal 0.20-1.00 [facility] Comment on above: Result Comment: For patients on eltrombopag therapy, use of Dimension Coats TBIL is not recommended. Performed By: #### L 503.6150, L501.9520, L100.0100, L500.4100, L500.4050, L506.1000, L503.0105 #### [facility] [address] [place], [address] BUN/CRE 15.9 RATIO Normal 10-20 [facility] Comment on above: Performed By: #### L 503.6150, L501.9520, L100.0100, L500.4100, L500.4050, L506.1000, L503.0105 #### [facility] [address] [place], [address] CA,Total 9.5 mg/dL Normal 8.5-10.1 [facility] Comment on above: Performed By: #### L 503.6150, L501.9520, L100.0100, L500.4100, L500.4050, L506.1000, L503.0105 #### [facility] [address] [place], [address] Chloride [Moles/Vol] 106 mmol/L Normal 98-107 [facility] Comment on above: Performed By: #### L 503.6150, L501.9520, L100.0100, L500.4100, L500.4050, L506.1000, L503.0105 #### [facility] [address] [place], [address] CO2 [Moles/Vol] 24.0 mmol/L Normal 21.0-32.0 [facility] Comment on above: Performed By: #### L 503.6150, L501.9520, L100.0100, L500.4100, L500.4050, L506.1000, L503.0105 #### [facility] [address] [place], [place], [id number] Creatinine [Mass/Vol] 0.82 mg/dL Normal 0.55-1.02 [facility] Comment on above: Result Comment: The validity of the calculated GFR GFRAA in patients over 70 years has not been determined. Clinical correlation is essential. Performed By: #### L 503.6150, L501.9520, L100.0100, L500.4100, L500.4050, L506.1000, L503.0105 #### [facility] [address] [place], [place], [id number] (517) EST GFR - AA 89 mL/min Normal >60 [facility] Comment on above: Result Comment: Afri can Anguillan GFR Calc Performed By: #### L 503.6150, L501.9520, L100.0100, L500.4100, L500.4050, L506.1000, L503.0105 #### [facility] [address] [place], [place], [id number] GAP 8 Normal 5-15 [facility] Comment on above: Performed By: #### L 503.6150, L501.9520, L100.0100, L500.4100, L500.4050, L506.1000, L503.0105 #### [facility] [address] [place], [place], [phone] (596) GFR/1.73 sq M.predicted among non-blacks MDRD (S/P/Bld) [Vol rate/Area] 73 mL/min/{1.73_m2} Normal >60 [facility] Comment on above: Result Comment: Non- GFR Calc Performed By: #### L 503.6150, L501.9520, L100.0100, L500.4100, L500.4050, L506.1000, L503.0105 #### [facility] [address] [place], [address] Globulin (S) [Mass/Vol] 3.5 g/dL Normal 2.2-4.2 [facility] Comment on above: Performed By: #### L 503.6150, L501.9520, L100.0100, L500.4100, L500.4050, L506.1000, L503.0105 #### [facility] [address] [place], [address] Glucose [Mass/Vol] 98 mg/dL Normal 74-106 [facility] Comment on above: Performed By: #### L 503.6150, L501.9520, L100.0100, L500.4100, L500.4050, L506.1000, L503.0105 #### [facility] [address] [place], [address] Potassium [Moles/Vol] 3.5 mmol/L Normal 3.5-5.1 [facility] Comment on above: Performed By: #### L 503.6150, L501.9520, L100.0100, L500.4100, L500.4050, L506.1000, L503.0105 #### [facility] [address] [place], [address] Sodium [Moles/Vol] 138 mmol/L Normal 136-145 [facility] Comment on above: Performed By: #### L 503.6150, L501.9520, L100.0100, L500.4100, L500.4050, L506.1000, L503.0105 #### [facility] [address] [place], [address] T PROT 7.6 g/dL Normal 6.4-8.2 [facility] Comment on above: Performed By: #### L 503.6150, L501.9520, L100.0100, L500.4100, L500.4050, L506.1000, L503.0105 #### [facility] [address] [place], [address] Urea nitrogen [Mass/Vol] 13 mg/dL Normal 7-18 [facility] Comment on above: Performed By: #### L 503.6150, L501.9520, L100.0100, L500.4100, L500.4050, L506.1000, L503.0105 #### [facility] [address] [place], [address] Ironon 03-06-2024 Iron [Mass/Vol] 109 ug/dL Normal 50-170 [facility] Comment on above: Performed By: #### L 503.6150, L501.9520, L100.0100, L500.4100, L500.4050, L506.1000, L503.0105 #### [facility] [address] [place], [address] Lipid Profileon 03-06-2024 Cholesterol [Mass/Vol] 279 mg/dL High 200 [facility] Comment on above: Result Comment: <200 mg/dL Desirable 200-240 mg/dL Borderline >240 mg/dL High Risk Performed By: #### L 503.6150, L501.9520, L100.0100, L500.4100, L500.4050, L506.1000, L503.0105 #### [facility] [address] [place], [address] Cholesterol in HDL [Mass/Vol] 84 mg/dL Normal [facility] Comment on above: Result Comment: The drugs N-Acetylcysteine and Metamizole may falsely depress this assay. Reference Range HDL <40 mg/dL Low HDL Cholesterol HDL >or= 60 mg/dL High HDL Cholesterol Performed By: #### L 503.6150, L501.9520, L100.0100, L500.4100, L500.4050, L506.1000, L503.0105 #### [facility] [address] [place], [address] Cholesterol in LDL [Mass/Vol] 170 mg/dL High 0-130 [facility] Comment on above: Performed By: #### L 503.6150, L501.9520, L100.0100, L500.4100, L500.4050, L506.1000, L503.0105 #### [facility] [address] [place], [address] Cholesterol in VLDL [Mass/Vol] 25 mg/dL Normal 5-40 [facility] Comment on above: Performed By: #### L 503.6150, L501.9520, L100.0100, L500.4100, L500.4050, L506.1000, L503.0105 #### [facility] [address] [place], [address] Triglyceride [Mass/Vol] 127 mg/dL Normal [facility] Comment on above: Result Comment: The drugs N-Acetylcysteine and Metamizole may falsely depress this assay. Serum Triglycerides Reference Interval Normal <150 mg/dL Borderline high 150 - 199 mg/dL High 200 - 499 mg/dL Very High > or = 500 mg/dL Performed By: #### L 503.6150, L501.9520, L100.0100, L500.4100, L500.4050, L506.1000, L503.0105 #### [facility] [address] [place], [address] Thyroid Stim Hormone (TSH)on 03-06-2024 TSH 1.78 uIU/mL Normal 0.358-3.74 [facility] Comment on above: Performed By: #### L 503.6150, L501.9520, L100.0100, L500.4100, L500.4050, L506.1000, L503.0105 #### [facility] [address] [place], [address] Vitamin B12on 03-06-2024 Cobalamin (Vitamin B12) [Mass/Vol] 242 pg/mL Normal 211-911 [facility] Comment on above: Performed By: #### L 503.6150, L501.9520, L100.0100, L500.4100, L500.4050, L506.1000, L503.0105 #### [facility] [address] [place], [place], [id number] Vitamin D,25 Hydroxyon 03-06 Vitamin D 25-OH 34.1 ng/mL Normal [facility] Comment on above: Result Comment: Sabina min D 25(OH) Status Range Deficiency <20 ng/mL (50nmol/L) Insufficiency 20 - 30 ng/mL (50 - 75 nmol/L) Sufficiency 30 - 100 ng/mL (75 - 250 nmol/L) Toxicity >100 ng/mL (>250 nmol/L) Performed By: #### L 503.6150, L501.9520, L100.0100, L500.4100, L500.4050, L506.1000, L503.0105 #### [facility] [address] [place], [address] Absolute lymphocyte counton 06-29-2022 Lymphocytes Auto (Unsp spec) [#/Vol] 1.44 10*3/uL 0.83-4.51 [facility] Work Phone: Basophil percentageon 2021 Basophils/100 WBC (Bld) 0.8 % 0-1 [facility] Work Phone: Bilirubin [Mass/Vol] 0.60 mg/dL 0.20-1.00 [facility] Work Phone: Comment on above: For patients on eltr ombopag therapy, use of Dimension Coats TBIL is not recommended. Chloride [Moles/Vol] 106 mmol/L 98-107 [facility] Work Phone: Cholesterol [Mass/Vol] 260 mg/dL <200 [facility] Work Phone: Comment on above: <200 mg/dL Desirable 200-240 mg/dL Borderline >240 mg/dL High Risk Eosinophils/100 WBC (Bld) 5.5 % 0-5 [facility] Work Phone: Glucose [Mass/Vol] 88 mg/dL 74-106 [facility] Work Phone: Neutrophils (Bld) [#/Vol] 1.6 10*3/uL 2.0-7.7 [facility] Work Phone: Neutrophils/100 WBC (Bld) 43.8 % 47-70 [facility] Work Phone: Potassium [Moles/Vol] 3.6 mmol/L 3.5-5.1 [facility] Work Phone: Protein [Mass/Vol] 7.6 g/dL 6.4-8.2 [facility] Work Phone: Sodium [Moles/Vol] 141 mmol/L 136-145 [facility] Work Phone: Triglyceride [Mass/Vol] 101 mg/dL <199 [facility] Work Phone: Comment on above: The drugs N-Acetylcy steine and Metamizole may falsely depress this assay.Serum Triglycerides Reference Interval Normal <150 mg/dL Borderline high 150 - 199 mg/dL High 200 - 499 mg/dL Very High > or = 500 mg/dL WBC (Bld) [#/Vol] 3.7 10*3/uL 4.4-11.0 [facility] Work Phone: Blood erythrocytes count (nu mber/volume)on 06-29-2022 RBC (Bld) [#/Vol] 3.92 10*6/uL 4.2-5.4 [facility] Work Phone: Blood hemoglobin measurement (mass/volume)on 06-29-2022 Hemoglobin (Bld) [Mass/Vol] 12.9 g/dL 12.0-15.0 [facility] Work Phone: Blood lymphocytes/100 leukoc yteson 06-29-2022 Lymphocytes/100 WBC (Bld) 39.5 % 19-41 [facility] Work Phone: Blood monocytes/100 leukocyt eson 06-29-2022 Monocytes/100 WBC (Bld) 10.4 % 0-10 [facility] Work Phone: Blood platelet mean volumeon 06-29-2022 Platelet mean volume (Bld) [Entitic vol] 10.4 fL 6.2-12.0 [facility] Work Phone: Determination of erythrocyte mean corpuscular volume (MCV)on 06-29-2022 MCV (RBC) [Entitic vol] 97.7 fL 81-99 [facility] Work Phone: Hematocrit Auto (Bld) [Volum e fraction]on 06-29-2022 Hematocrit (Bld) [Volume fraction] 38.3 % 37-47 [facility] Work Phone: Iron measurement (mass/mass) on 06-29-2022 Iron (Unsp spec) [Mass/Mass] 74 ug/dL 50-170 [facility] Work Phone: Laboratory - Chemistry and C hemistry - challengeon 06-29-2022 ALP [Catalytic activity/Vol] 36 U/L 45-117 [facility] Work Phone: ALT [Catalytic activity/Vol] 19 U/L 13-56 [facility] Work Phone: CO2 [Moles/Vol] 26.0 mmol/L 21.0-32.0 [facility] Work Phone: Cobalamin (Vitamin B12) [Mass/Vol] 257 pg/mL 211-911 [facility] Work Phone: Globulin (S) [Mass/Vol] 3.4 g/dL 2.2-4.2 [facility] Work Phone: Urea nitrogen/Creatinine [Mass ratio] 15.7 mg/mg 10-20 [facility] Work Phone: Laboratory - Hematology and Cell countson 06-29-2022 Erythrocyte distribution width (RBC) [Entitic vol] 45.2 fL 35.1-43.9 [facility] Work Phone: Erythrocyte distribution width (RBC) [Ratio] 12.5 % 11.6-14.6 [facility] Work Phone: Immature granulocytes/100 WBC (Bld) 0.000 % 0.0-0.9 [facility] Work Phone: Comment on above: IG% - Immature Granu locytes (promyelocytes, myelocytes and metamyelocytes) > 1% indicates that a LEFT SHIFT is Present. MCH (RBC) [Entitic mass] 32.9 pg 27.0-32.0 [facility] Work Phone: Nucleated RBC/100 WBC (Bld) [Ratio] 0 % 0-5 [facility] Work Phone: MCHC Auto (RBC) [Mass/Vol]on 06-29-2022 MCHC (RBC) [Mass/Vol] 33.7 g/dL 32-36 [facility] Work Phone: No Panel Informationon 06-29 Estimated GFR (MDRD) Amer 81 mL/min >60 [facility] Work Phone: Comment on above: GFR Calc Estimated GFR (MDRD) Non-Af Amer 67 mL/min >60 [facility] Work Phone: Comment on above: Non- GFR Calc Thyroid Stimulating Hormone (TSH) 1.57 uIU/mL 0.358-3.74 [facility] Work Phone: Platelets bldon 06-29-2022 Platelets (Bld) [#/Vol] 250 10*3/uL 150-450 [facility] Work Phone: Serum or plasma albumin dinora urement (mass/volume)on 06-29-2022 Albumin [Mass/Vol] 4.2 g/dL 3.2-5.0 [facility] Work Phone: Serum or plasma albumin/glob ulin mass ratioon 06-29-2022 Albumin/Globulin [Mass ratio] 1.2 {ratio} 0.9-2.4 [facility] Work Phone: Serum or plasma calcium dinora urement (mass/volume)on 06-29-2022 Calcium [Mass/Vol] 9.5 mg/dL 8.5-10.1 [facility] Work Phone: Serum or plasma cholesterol in HDL measurement (mass/volume)on 06-29-2022 Cholesterol in HDL [Mass/Vol] 74 mg/dL >40 [facility] Work Phone: Comment on above: The drugs N-Acetylcy steine and Metamizole may falsely depress this assay. Reference Range HDL <40 mg/dL Low HDL Cholesterol HDL >or= 60 mg/dL High HDL Cholesterol Serum or plasma cholesterol in VLDL measurement (mass/volume)on 06-29-2022 Cholesterol in VLDL [Mass/Vol] 20 mg/dL 5-40 [facility] Work Phone: Serum or plasma creatinine m easurement (mass/volume)on 06-29-2022 Creatinine [Mass/Vol] 0.89 mg/dL 0.55-1.02 [facility] Work Phone: Comment on above: The validity of the calculated GFR & GFRAA in patients over 70 years has not been determined. Clinical correlation is essential. Serum or plasma low density lipoprotein (LDL) cholesterol measurement (mass/volume)on 06-29-2022 Cholesterol in LDL [Mass/Vol] 166 mg/dL 0-130 [facility] Work Phone: Serum or plasma urea nitroge n measurement (mass/volume)on 06-29-2022 Urea nitrogen [Mass/Vol] 14 mg/dL 7-18 [facility] Work Phone: Thin prep Papanicolaou smear with manual screeningon 06-29-2022 Thin prep Papanicolaou smear with manual screening 17 U/L 15-37 [facility] Work Phone: Thin prep Papanicolaou smear with manual screening 06 13-15 [facility] Work Phone: CBC AND DIFFERENTIALon 04-29 Basophils (Bld) [#/Vol] 0.00 10*3/uL Normal 0.00 - 0.10 [facility] Comment on above: Performed By: #### C BCDF ####[address] [address] Basophils/100 WBC (Bld) 0.5 % Normal 0.0 - 2.0 [facility] Comment on above: Performed By: #### C BCDF ####[address] [address] Eosinophils (Bld) [#/Vol] 0.30 10*3/uL Normal 0.00 - 0.70 [facility] Comment on above: Performed By: #### C BCDF ####[address] [address] Eosinophils/100 WBC (Bld) 3.6 % Normal 0.0 - 6.0 [facility] Comment on above: Performed By: #### C BCDF ####[address] [address] Erythrocyte distribution width (RBC) [Ratio] 12.9 % Normal 11.5 - 14.5 [facility] Comment on above: Performed By: #### C BCDF ####[address] [address] Hematocrit (Bld) [Volume fraction] 31.8 % Low 36.0 - 46.0 [facility] Comment on above: Performed By: #### C BCDF ####[address] [address] Hemoglobin (Bld) [Mass/Vol] 10.9 g/dL Low 12.0 - 16.0 [facility] Comment on above: Performed By: #### C BCDF ####[address] [address] Lymphocytes (Bld) [#/Vol] 1.70 10*3/uL Normal 1.20 - 4.80 [facility] Comment on above: Performed By: #### C BCDF ####[address] [address] Lymphocytes/100 WBC (Bld) 24.0 % Normal 13.0 - 44.0 [facility] Comment on above: Performed By: #### C BCDF ####[address] [address] MCHC (RBC) [Mass/Vol] 34.3 g/dL Normal 32.0 - 36.0 [facility] Comment on above: Performed By: #### C BCDF ####[address] [address] MCV (RBC) [Entitic vol] 97 fL Normal 80 - 100 [facility] Comment on above: Performed By: #### C BCDF ####[address] [address] Monocytes (Bld) [#/Vol] 0.50 10*3/uL Normal 0.10 - 1.00 [facility] Comment on above: Performed By: #### C BCDF ####[address] [address] Monocytes/100 WBC (Bld) 6.6 % Normal 2.0 - 10.0 [facility] Comment on above: Performed By: #### C BCDF ####[address] [address] Neutrophils (Bld) [#/Vol] 4.50 10*3/uL Normal 1.20 - 7.70 [facility] Comment on above: Result Comment: Perc ent differential counts (%) should be interpreted in the context of the absolute cell counts (cells/L). Performed By: #### C BCDF ####[address] [address] Neutrophils/100 WBC (Bld) 65.3 % Normal 40.0 - 80.0 [facility] Comment on above: Performed By: #### C BCDF ####[address] [address] Platelets (Bld) [#/Vol] 173 10*3/uL Normal 150 - 450 [facility] Comment on above: Performed By: #### C BCDF ####[address] [address] RBC (Bld) [#/Vol] 3.29 x10E12/L Low 4.00 - 5.[address] [facility] Comment on above: Performed By: #### C BCDF ####[address] [address] WBC (Bld) [#/Vol] 7.0 10*3/uL Normal 4.4 - 11.3 [facility] Comment on above: Performed By: #### C BCDF ####[address] [address] COMPREHENSIVE PANELon 2019 Albumin [Mass/Vol] 3.3 g/dL Low 3.4 - 5.0 [facility] Comment on above: Performed By: #### C K #### [address] [address] ALP [Catalytic activity/Vol] 27 U/L Low 33 - 136 [facility] Comment on above: Performed By: #### C K #### [address] [address] ALT [Catalytic activity/Vol] 10 U/L Normal 7 - 45 [facility] Comment on above: Result Comment: Radha ents treated with Sulfasalazine may generate falsely decreased results for ALT. Performed By: #### C K #### [address] [address] Anion gap [Moles/Vol] 8 mmol/L Low 10 - [address] [facility] Comment on above: Performed By: #### C K #### [address] [address] AST [Catalytic activity/Vol] 15 U/L Normal 9 - 39 [facility] Comment on above: Performed By: #### C K #### [address] [address] Bilirubin [Mass/Vol] 0.4 mg/dL Normal 0.0 - 1.2 [facility] Comment on above: Performed By: #### C K #### [address] [address] Calcium [Mass/Vol] 8.3 mg/dL Low 8.6 - 10.3 [facility] Comment on above: Performed By: #### C K #### [address] [address] Chloride [Moles/Vol] 110 mmol/L High 98 - 107 [facility] Comment on above: Performed By: #### C K #### [address] [address] Creatinine [Mass/Vol] 0.71 mg/dL Normal 0.50 - 1.05 [facility] Comment on above: Performed By: #### C K #### [address] [address] GFR- AM. >60 Normal >60 [facility] Comment on above: Result Comment: CALC ULATIONS OF ESTIMATED GFR ARE PERFORMED USING THE MDRD STUDY EQUATION FOR THE IDMS-TRACEABLE CREATININE METHODS. CLIN CHEM 2007;53:766-72 Performed By: #### C K #### [address] [address] GFR-NON AM. >60 Normal >60 [facility] Comment on above: Performed By: #### C K #### [address] [address] Glucose [Mass/Vol] 106 mg/dL High 74 - 99 [facility] Comment on above: Performed By: #### C K #### [address] [address] HCO3 (Bld) [Moles/Vol] 27 mmol/L Normal 21 - 32 [facility] Comment on above: Performed By: #### C K #### [address] [address] Potassium [Moles/Vol] 3.5 mmol/L Normal 3.5 - 5.[address] [facility] Comment on above: Performed By: #### C K #### [address] [address] Protein [Mass/Vol] 5.2 g/dL Low 6.4 - 8.2 [facility] Comment on above: Performed By: #### C K #### [address] [address] Sodium [Moles/Vol] 141 mmol/L Normal 136 - 145 [facility] Comment on above: Performed By: #### C K #### [address] [address] Urea nitrogen [Mass/Vol] 4 mg/dL Low 6 - 23 [facility] Comment on above: Performed By: #### C K #### [address] [address] Discharge [id number] Discharge Profile2 Discharge Orders: Anticipated Discharge Date: Anticipated Discharge [id number] Problem List: Additional Dx: Food poisoning: Catalog Name: Bacterial foodborne intoxication, unspecified Colitis, acute: Catalog Name: Noninfective gastroenteritis and colitis, unspecified Hospital Providers: Provider RoleProvider Name Brian Vivar Dale R Activity: activity as tolerated. Diet: Dietregular, Clears and bland foods for now Hospital Course (Home Care/Gold Form): Hospital Course: Hospital Course: include significant abnormal lab values Please refer to history and physical for details of admission. Patient presented to the emergency room April 27 because of nausea, vomiting and bloody diarrhea since the . According to the patient she and her had some squash that they got from their backyard. They noted that some of the squash had a very bitter taste to it. Her who ate the same thing was having nausea and crampy abdominal pain. His symptoms lasted for a while then stopped. Her symptoms continue with crampy abdominal pain which was a 6 out of 10 in intensity followed by bloody diarrhea. She had 5-6 episodes of bloody stool and she said it was with mixed with dark red blood. No fevers, chills or sweats. No other major complaints. She came into the ER to be evaluated after she contacted her PCP and poison control. In the emergency room vital signs were stable and her labs are essentially unremarkable. CT of the abdomen showed mild inflammatory enterocolitis. She was given Bentyl and started on IV fluids and placed on the medical service. On the medical service she was admitted for colitis and lower GI bleed. She was started on fluid hydration and GI was consulted. 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 He recommended continued supportive care and no indication for colonoscopy at this time. With supportive care, her symptoms did get better although she still has some crampy pain. She is tolerating clears and she will be discharged home today. She will follow-up with her PCP within the next week. I did send her home with a prescription for Bentyl and Percocet. Provider FINAL REVIEW of Orders: Final Review: Final Review of Medication Reconciliation and Orders Completedby Physician Reviewing ProviderBrian Kaur DO at 29-Apr-2020 12:07:52 Appointments: Follow-Up Appointment 01: Physician/Dept/KianaD nita Mar Reason for Referralhospital follow up Call to Schedule in1 week [address] [place] Tona Pang Phone [phone] CommentsPatient prefers to make follow up appointment. 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 NOT DETECTED Normal NOT DETECTED [facility] Comment on above: Performed By: #### C K #### [place] [address] NOROVIRUS GI/GII NOT DETECTED Normal NOT DETECTED [facility] Comment on above: Performed By: #### C K #### [place] [address] ROTAVIRUS A NOT DETECTED Normal NOT DETECTED [facility] Comment on above: Result Comment: The enteric PCR panel is a panel of sensitive and specific amplified nucleic acid tests indicated as an aid in the diagnosis of specific bacterial and viral agents of gastrointestinal illness, in conjunction with other clinical, laboratory, and epidemiological information. This test is not approved for monitoring these infections. Monitoring is available for Salmonella and Shigella infections-request test Stool PCR Follow-Up (STLPF). Monitoring tests are not available at this time for other enteric agents in this panel. Performed By: #### C K #### [place] [address] SALMONELLA SP. NOT DETECTED Normal NOT DETECTED [facility] Comment on above: Performed By: #### C K #### [place] [address] SHIGA TOXIN 1 NOT DETECTED Normal NOT DETECTED [facility] Comment on above: Performed By: #### C K #### [place] [address] SHIGA TOXIN 2 NOT DETECTED Normal NOT DETECTED [facility] Comment on above: Performed By: #### C K #### [place] [address] SHIGELLA SP. NOT DETECTED Normal NOT DETECTED [facility] Comment on above: Performed By: #### C K #### [place] [address] VIBRIO GROUP NOT DETECTED Normal NOT DETECTED [facility] Comment on above: Performed By: #### C K #### [place] [address] YERSINIA ENTEROCOLITICA NOT DETECTED Normal NOT DETECTED [facility] Comment on above: Performed By: #### C K #### [place] [address] CBCon 04-28-2020 Erythrocyte distribution width (RBC) [Ratio] 12.8 % Normal 11.5 - 14.5 [facility] Comment on above: Performed By: #### C BC ####[place] [address] Hematocrit (Bld) [Volume fraction] 35.5 % Low 36.0 - 46.0 [facility] Comment on above: Performed By: #### C BC ####[address] [address] Hemoglobin (Bld) [Mass/Vol] 12.0 g/dL Normal 12.0 - 16.0 [facility] Comment on above: Performed By: #### C BC ####[address] [address] MCHC (RBC) [Mass/Vol] 33.8 g/dL Normal 32.0 - 36.0 [facility] Comment on above: Performed By: #### C BC ####[address] [address] MCV (RBC) [Entitic vol] 96 fL Normal 80 - 100 [facility] Comment on above: Performed By: #### C BC ####[address] [address] Platelets (Bld) [#/Vol] 202 10*3/uL Normal 150 - 450 [facility] Comment on above: Performed By: #### C BC ####[address] [address] RBC (Bld) [#/Vol] 3.69 x10E12/L Low 4.00 - 5.[address] [facility] Comment on above: Performed By: #### C BC ####[address] [address] WBC (Bld) [#/Vol] 8.4 10*3/uL Normal 4.4 - 11.3 [facility] Comment on above: Performed By: #### C BC ####[address] [address] COMPREHENSIVE PANELon 2019 Albumin [Mass/Vol] 3.7 g/dL Normal 3.4 - 5.0 [facility] Comment on above: Performed By: #### C MP ####[address] [address] ALP [Catalytic activity/Vol] 33 U/L Normal 33 - 136 [facility] Comment on above: Performed By: #### C MP ####[address] [address] ALT [Catalytic activity/Vol] 10 U/L Normal 7 - 45 [facility] Comment on above: Result Comment: Radha ents treated with Sulfasalazine may generate falsely decreased results for ALT. Performed By: #### C MP ####[address] [address] Anion gap [Moles/Vol] 9 mmol/L Low 10 - [address] [facility] Comment on above: Performed By: #### C MP ####[address] [address] AST [Catalytic activity/Vol] 14 U/L Normal 9 - 39 [facility] Comment on above: Performed By: #### C MP ####[address] [address] Bilirubin [Mass/Vol] 0.5 mg/dL Normal 0.0 - 1.2 [facility] Comment on above: Performed By: #### C MP ####[address] [address] Calcium [Mass/Vol] 8.6 mg/dL Normal 8.6 - 10.3 [facility] Comment on above: Performed By: #### C MP ####[address] [address] Chloride [Moles/Vol] 108 mmol/L High 98 - 107 [facility] Comment on above: Performed By: #### C MP ####[address] [address] Creatinine [Mass/Vol] 0.75 mg/dL Normal 0.50 - 1.05 [facility] Comment on above: Performed By: #### C MP ####[address] [address] GFR- AM. >60 Normal >60 [facility] Comment on above: Result Comment: CALC ULATIONS OF ESTIMATED GFR ARE PERFORMED USING THE MDRD STUDY EQUATION FOR THE IDMS-TRACEABLE CREATININE METHODS. CLIN CHEM 2007;53:766-72 Performed By: #### C MP ####[address] [address] GFR-NON AM. >60 Normal >60 [facility] Comment on above: Performed By: #### C MP ####[place] [id number] Glucose [Mass/Vol] 123 mg/dL High 74 - 99 [facility] Comment on above: Performed By: #### C MP ####[address] [address] HCO3 (Bld) [Moles/Vol] 25 mmol/L Normal 21 - 32 [facility] Comment on above: Performed By: #### C MP ####[place] [address] Potassium [Moles/Vol] 3.6 mmol/L Normal 3.5 - 5.[address] [facility] Comment on above: Performed By: #### C MP ####[place] [address] Protein [Mass/Vol] 5.9 g/dL Low 6.4 - 8.2 [facility] Comment on above: Performed By: #### C MP ####[place] [address] Sodium [Moles/Vol] 138 mmol/L Normal 136 - 145 [facility] Comment on above: Performed By: #### C MP ####[place] [id number] Urea nitrogen [Mass/Vol] 7 mg/dL Normal 6 - 23 [facility] Comment on above: Performed By: #### C MP ####[place] [address] Daily Progress Note-Medicine on 04-28-2020 Daily Progress Note-Medicine Service: Medicine Review of Systems: Review of Systems: Constitutional: NEGATIVE: Fever, Chills ENMT: NEGATIVE: Nasal Discharge, Nasal Congestion, Ear Pain, Mouth Pain, Throat Pain Respiratory: NEGATIVE: Dry Cough, Productive Cough, Hemoptysis, Wheezing, Shortness of Breath Cardiac: NEGATIVE: Chest Pain, Dyspnea on Exertion, Orthopnea, Palpitations, Syncope Gastrointestinal: POSITIVE: Diarrhea, Abdominal Pain; NEGATIVE: Nausea, Vomiting, Constipation Genitourinary: NEGATIVE: Discharge, Dysuria, Flank Pain, Frequency, Hematuria Musculoskeletal: NEGATIVE: Decreased ROM, Pain, Swelling, Stiffness, Weakness Neurological: NEGATIVE: Dizziness, Confusion, Headache, Syncope Psychiatric: NEGATIVE: Mood Changes, Anxiety Subjective Data: LU GONZALES is a 64 year old Female who is Hospital Day # 2. Additional Information: Still having some crampy abdominal pain diffusely Take in clear liquids however she is having incontinence of watery stool although she did have some brown stool semi-formed today No nausea or vomiting Objective Data: Objective Information: T PRBPSpO2 [id number]% Date/Time04/28 11: 11: 11: 11: 11:15 Range(37C - 37.4C ) (64 - 79 ) (16 - 18 ) (115 - 136 )/ (65 - 83 ) (93% - 99% ) Highest temp of 37.4 C was recorded at 04/28 2:42 Pain reported at 04/28 11:15: 2 = Mild Physical Exam: Constitutional: Awake and alert; oriented x3 no apparent distress or respiratory distress Head/Neck: Neck is supple with no palpable lymphadenopathy, bruits or masses; trachea midline Respiratory/Thorax: Clear to auscultation bilaterally Cardiovascular: Regular rate and rhythm; normal S1-S2 with no murmur: No pitting edema and 2+ pulses bilaterally Gastrointestinal: Soft, nontender, distended with hypoactive bowel sounds; no guarding or rebound noted Neurological: Nonfocal; cranial nerves II through XII appear intact Psychological: Pleasant affect Recent Lab Results: Results: I have reviewed these laboratory results: Complete Blood Count 28-Apr-2020 05:09:00 ResultValue White Blood Cell Count 8.4 Red Blood Cell Count 3.69 L HGB 12.0 HCT 35.5 L MCV 96 MCHC 33.8 PLT 202 RDW-CV 12.8 Comprehensive Metabolic Panel 28-Apr-2020 05:09:00 ResultValue Glucose, Serum 123 H NA 138 K 3.6 CL 108 H Bicarbonate, Serum 25 Anion Gap, Serum 9 L BUN 7 CREAT 0.75 GFR-Non >60 GFR- >60 Calcium, Serum 8.6 ALB 3.7 ALKP 33 T Pro 5.9 L T Bili 0.5 Alanine Aminotransferase, Serum 10 Aspartate Transaminase, Serum 14 Assessment and Plan: Additional Dx: Food poisoning: Entered Date: 28-Apr-2020 13:43 Colitis, acute: Entered Date: 28-Apr-2020 13:42 Assessment: 64-year-old female admitted for colitis and lower GI bleed. Her colitis is secondary to ingestion of a toxic squash. PLAN: 1. Maintain fluid hydration 2. She was to maintain clear liquids for now as she is still having symptoms 3. Antiemetics as needed and pain control as needed 4. Lab for tomorrow morning 5. DVT prophylaxis with SCDs 6. Discharge planning in next 24 to 48 hours Electronic Signatures: Brian Kaur () (Signed 28-Apr-2020 13:48) Authored: Service, Review of Systems, Subjective Data, Objective Data, Assessment and Plan, Signature/Cosignature/A ttestation Last Updated: 28-Apr-2020 13:48 by Brian Kaur () [facility] Discharge Planning Ciaf2lf 0 04-28-2020 Discharge Planning Note2 Discharge Planning: Planned Dispositionhome Discharge DestinationHome [facility] [place] of Choice Explainedyes Anticipated Discharge [id number] Discharge Planning Care Transitions Note 04/28/2020 @ 1400 Care Transitions Note SW met with this pt. Patient presented as alert and oriented, pleasant and cooperative, and agreed to SW visit. Prior to admission, pt reports living in a single story home with her . She states that prior to this incident, she was completely independent with all ADL/IADL's. She denies any adaptive or assistive equipment use. She denies any community resource linkage or needs at this time. When asked about SW/CT needs, pt denies this, indicating that she is relatively healthy. SW encouraged pt to reach out with any SW/CT needs. Pt agreed to this. SW to follow on referral. Izabela South, SUPERVISOR PRINT LINE, PHYSICAL DESIGN ENGINEER Discharge Note: 04/29/2020 1422 Discharge instructions and pt responsibilities reviewed with pt, pt , and copy given. New prescription for Percocet given to pt. Notified prescription for Dicyclomine has been electronically submitted to [facility] in [place] per pt preference. Reviewed dose, purpose, side effects, and when next dose is due. Reviewed side effects of Percocet of drowsiness, tiredness, and confusion. Reviewed narcotic medication disposal. Reviewed all home medications. Pt verbalizes understanding of instructions received, all questions answered, denies further questions or concerns, denies any home going or personal care needs. Reviewed follow up appt with PCP and pt states prefers to make own appt. Declines wheelchair, ambulates to private car accompanied by PCT and , personal belongings taken with pt, no distress noted, no complaints voiced. Ravi mattress renovator: Discharge Planning Assessment [id number] Stated Reason for Admissionbloody stools(1) [facility] Lives Withspouse(1) Living Arrangementshouse(1) Resource/Environmental Concernsnone(1) [place]) Services Anticipated at Transitionnon(1) Nursing Checklist: Lines/Cathetersremoved/ appropriate for next level of care Discharge Med Rec Reconciled with Shikha Patient has Prescriptionsyes Transportation for Discharge Confirmedyes Follow up Reviewedyes Discharge Instructions Reviewed WithPatient, Significant Other Discharge Instructions Outcomeverbalize recall/understanding Discharge Instructions Review Completed with Patient/Family (diet, activity, pt instructions)yes Discharge Documentation: Discharge/Transfer Date/[id number] 14:22 Discharge Modeambulatory Discharged Accompanied Byspouse Transportation Methodprivate car Valuables/Medications/B elongings Returnedyes Final DispositionHome Electronic Signatures: Izabela South (PHYSICAL DESIGN ENGINEER) (Signed 28-Apr-2020 13:52) Authored: Discharge Planning Note2 Jovanna Casanova (RN) (Signed 29-Apr-2020 14:30) Authored: Discharge Planning Note2 Last Updated: 29-Apr-2020 14:30 by Jovanna Casanova (RN) References: 1. Data Referenced From Patient Profile - Adult v2 27-Apr-2020 18:12 [facility] STOOL PATHOGEN PCR PANELon 0 04-28-2020 Lab Specimen Source Normal [facility] Comment on above: Performed By: #### C K #### [place] [address] Admission Risk Screen - Adul ton 04-27-2020 Admission Risk Screen - Adult Allergies: Allergies: Neosporin: Rash Patient Verification: New W ID Band Applied in my Departmentno Type of ID Patient is WearingW wristband, but not applied here Patient Transferred from Other Facility ([facility], [facility],etc)no Patient Identity Verified Bypatient ID Band FULL Name, include Middle, spelling matches patient's ID used for verificationyes ID Band Matches Patient ID used for Verficationyes ID Band MRN Matches EMR MRNyes Visitor Restriction: Coronavirus Visitor Restriction: Reasonable restrictions to in-person visitors will be observed due to current coronavirus pandemic. Travel History: COVID-19 Screening Completedno exposure or symptoms(1) Advance Directive: Advance Directive/DNRno (2) Advance Directive Information Givenpatient/family declined Falls Screen: Type of Assessmentadmission Moderate Risk Factorspatient care equipment (scds, ivs, chest tubes, vanessa, etc) Risk for Injury Associated with Fallnone Fall Risk Conclusionmoderate falls risk with low risk for associated injury [place] Safety InterventionsWDL *orient to call system *instruct to call for assistance before getting out of bed *non-slip footwear when patient is out of bed *call marrero in reach *personal items and telephone in reach *physically safe environment (no spills or clutter) *bed in lowest position with wheels locked *appropriate side rails in place *room/bathroom lighting operational, light cord in reach *appropriate signage on door Family Violence Screen: Are you or have you been threatened or abused physically, emotionally, or sexually by anyoneno Do you feel UNSAFE going back to the place where you are livingno Clinical assessment: Are there any apparent signs of injuries/behaviors that could be related to abuse/neglectno Social Service Consult for abuse/neglect needed this visitno Functional Screen: Functional Screen: In the recent/past 2-4 weeks, patient or family have noticedno issues that require a speech/language consult at this time AM-PAC- Basic Mobility/Daily Activity: Patient baseline bedboundno Turning from your back to your side while in a flat bed without using bedrailsnone Moving from lying on your back to sitting on the side of a flat bed without using bedrailsnone Moving to and from bed to chair (including a wheelchair)none Standing up from a chair using your arms (e.g. wheelchair or bedside chair) none To walk in hospital roomnone Climbing 3-5 steps with railingnone AM-PAC Basic Mobility- Total Score24 Putting on and taking off regular lower body clothingnone Bathing (including washing, rinsing, drying)none Putting on and taking off regular upper body clothingnone Toileting, which includes using toilet, bedpan or urinalnone Taking care of personal grooming such as brushing teethnone Eating Mealsnone AM-PAC Daily Activity- Total Score24 Learning Assessment (Patient): Patient is Able to be Assessed for Learningyes Factors Influencing Readiness to Learnacuteness of illness Factors that Impact Ability to Learnnone Devices/Methods Used to Communicatenone Learning Preferencesverbal instruction Cultural Considerationsnone Developmental Considerationsnone Church Considerationsnone Learning Assessment (Other Learner): Other learner availableno Suicide/Depression Screen: During the past month, have you often been bothered by feeling down, depressed or hopelessno During the past month, have you often had little interest or pleasure in doing thingsno Have you had any thoughts of harming yourselfno Have you had any thoughts of harming anyone elseno (1) Adult Nutrition Screen: Have you recently lost weight without tryingno Have you been eating poorly because of a decreased appetiteno Malnutrition Screening Tool Score0 Malnutrition Screening Tool RiskMST = 0 or 1 Not at risk. Eating well with little or no weight loss Nutrition Consult needed this visitno Can Patient Participate in Room Serviceyes Patient requires Paper Dishes/Plastic Utensilsno Pain Screen: Pain Scalenumerical 0-10 Pain Scale Educationteaching provided Current Pain Level5 = Moderate Acceptable Pain Level5 = Moderate Expression of Pain (nonverbal)none Chronic Painno Spiritual Screen: Are there any cultural, spiritual, anglican practices/values/needs that are important for us to knowno Do you want a visit/item from Pastoral Careno Would you like your Manager Workers Compensation/Trading Analyst notifiedno CAGE: Is this an injured patient at a [place] Center [place]/[place]): no (2) Vaccinations: Vaccination - Influenza Vaccination Screen: Is it flu season (between and January 19)No Vaccination - Pneumonia Vaccination Screen: Patient has received a previous pneumonia vaccine:no/unknown... Pneumonia vaccine NOT indicated due to:patient/caregiver refusal at this time Yusuf: Skin - Yusuf Scale: Yusuf: Sensory Perception (response to environment)(4) no impairment Yusuf: Moisture (degree skin exposed to moisture)(4) rarely moist Yusuf: Activity (ability to walk)(4) walks frequently Yusuf: Mobility (amount/control of body movement)(4) no limitation Yusuf: Nutrition (quality of food intake)(4) excellent Yusuf: Friction and Shear(3) no apparent problem Yusuf: Score23 Significant Indicatiors: Significant Indicators: Complete Pressure Injury: Pressure Injury Present on Admissionno Electronic Signatures: Misty Rodriguez (RN) (Signed 27-Apr-2020 18:26) Authored: Admission Risk Screens, Vaccinations, Yusuf, Pressure Injury Last Updated: 27-Apr-2020 18:26 by Misty Rodriguez (RN) References: 1. Data Referenced From Triage - ED 27-Apr-2020 13:18 2. Data Referenced From Risk Screen - Adult Emergency 27-Apr-2020 13:25 Normal [facility] CBC AND DIFFERENTIALon 04-27 Basophils (Bld) [#/Vol] 0.10 10*3/uL Normal 0.00 - 0.10 [facility] Comment on above: Performed By: #### C BCDF #### [address] [address] Basophils/100 WBC (Bld) 0.6 % Normal 0.0 - 2.0 [facility] Comment on above: Performed By: #### C BCDF #### [address] [address] Eosinophils (Bld) [#/Vol] 0.10 10*3/uL Normal 0.00 - 0.70 [facility] Comment on above: Performed By: #### C BCDF #### [address] [address] Eosinophils/100 WBC (Bld) 1.0 % Normal 0.0 - 6.0 [facility] Comment on above: Performed By: #### C BCDF #### [address] [address] Erythrocyte distribution width (RBC) [Ratio] 12.4 % Normal 11.5 - 14.5 [facility] Comment on above: Performed By: #### C BCDF #### [address] [address] Hematocrit (Bld) [Volume fraction] 39.3 % Normal 36.0 - 46.0 [facility] Comment on above: Performed By: #### C BCDF #### [address] [address] Hemoglobin (Bld) [Mass/Vol] 13.4 g/dL Normal 12.0 - 16.0 [facility] Comment on above: Performed By: #### C BCDF #### [address] [address] Lymphocytes (Bld) [#/Vol] 1.30 10*3/uL Normal 1.20 - 4.80 [facility] Comment on above: Performed By: #### C BCDF #### [address] [address] Lymphocytes/100 WBC (Bld) 14.6 % Normal 13.0 - 44.0 [facility] Comment on above: Performed By: #### C BCDF #### [address] [address] MCHC (RBC) [Mass/Vol] 34.2 g/dL Normal 32.0 - 36.0 [facility] Comment on above: Performed By: #### C BCDF #### [address] [address] MCV (RBC) [Entitic vol] 96 fL Normal 80 - 100 [facility] Comment on above: Performed By: #### C BCDF #### [address] [address] Monocytes (Bld) [#/Vol] 0.50 10*3/uL Normal 0.10 - 1.00 [facility] Comment on above: Performed By: #### C BCDF #### [address] [address] Monocytes/100 WBC (Bld) 6.1 % Normal 2.0 - 10.0 [facility] Comment on above: Performed By: #### C BCDF #### [address] [address] Neutrophils (Bld) [#/Vol] 6.80 10*3/uL Normal 1.20 - 7.70 [facility] Comment on above: Result Comment: Perc ent differential counts (%) should be interpreted in the context of the absolute cell counts (cells/L). Performed By: #### C BCDF #### [address] [address] Neutrophils/100 WBC (Bld) 77.7 % Normal 40.0 - 80.0 [facility] Comment on above: Performed By: #### C BCDF #### [address] [address] Platelets (Bld) [#/Vol] 236 10*3/uL Normal 150 - 450 [facility] Comment on above: Performed By: #### C BCDF #### [address] [address] RBC (Bld) [#/Vol] 4.09 x10E12/L Normal 4.00 - 5.[address] [facility] Comment on above: Performed By: #### C BCDF #### [place] [id number] WBC (Bld) [#/Vol] 8.7 10*3/uL Normal 4.4 - 11.3 [facility] Comment on above: Performed By: #### C BCDF #### [place] [id number] COMPREHENSIVE PANELon 2019 Albumin [Mass/Vol] 4.3 g/dL Normal 3.4 - 5.0 [facility] Comment on above: Performed By: #### C MP #### [address] [address] ALP [Catalytic activity/Vol] 38 U/L Normal 33 - 136 [facility] Comment on above: Performed By: #### C MP #### [address] [address] ALT [Catalytic activity/Vol] 12 U/L Normal 7 - 45 [facility] Comment on above: Result Comment: Rdaha ents treated with Sulfasalazine may generate falsely decreased results for ALT. Performed By: #### C MP #### [place] [id number] Anion gap [Moles/Vol] 12 mmol/L Normal 10 - [address] [facility] Comment on above: Performed By: #### C MP #### [address] [address] AST [Catalytic activity/Vol] 17 U/L Normal 9 - 39 [facility] Comment on above: Performed By: #### C MP #### [address] [address] Bilirubin [Mass/Vol] 0.5 mg/dL Normal 0.0 - 1.2 [facility] Comment on above: Performed By: #### C MP #### [address] [address] Calcium [Mass/Vol] 9.7 mg/dL Normal 8.6 - 10.3 [facility] Comment on above: Performed By: #### C MP #### [place] [id number] Chloride [Moles/Vol] 103 mmol/L Normal 98 - 107 [facility] Comment on above: Performed By: #### C MP #### [address] [address] Creatinine [Mass/Vol] 0.81 mg/dL Normal 0.50 - 1.05 [facility] Comment on above: Performed By: #### C MP #### [address] [address] GFR- AM. >60 Normal >60 [facility] Comment on above: Result Comment: CALC ULATIONS OF ESTIMATED GFR ARE PERFORMED USING THE MDRD STUDY EQUATION FOR THE IDMS-TRACEABLE CREATININE METHODS. CLIN CHEM 2007;53:766-72 Performed By: #### C MP #### [address] [address] GFR-NON AM. >60 Normal >60 [facility] Comment on above: Performed By: #### C MP #### [address] [address] Glucose [Mass/Vol] 116 mg/dL High 74 - 99 [facility] Comment on above: Performed By: #### C MP #### [address] [address] HCO3 (Bld) [Moles/Vol] 25 mmol/L Normal 21 - 32 [facility] Comment on above: Performed By: #### C MP #### [address] [address] Potassium [Moles/Vol] 3.6 mmol/L Normal 3.5 - 5.[address] [facility] Comment on above: Performed By: #### C MP #### [address] [address] Protein [Mass/Vol] 7.0 g/dL Normal 6.4 - 8.2 [facility] Comment on above: Performed By: #### C MP #### [address] [address] Sodium [Moles/Vol] 136 mmol/L Normal 136 - 145 [facility] Comment on above: Performed By: #### C MP #### [address] [address] Urea nitrogen [Mass/Vol] 13 mg/dL Normal 6 - 23 [facility] Comment on above: Performed By: #### C MP #### [place] [id number] CORONAVIRUS 2019 BY PCRon CORONAVIRUS 2019,PCR NOT DETECTED Normal Not Detected [facility] Comment on above: Result Comment: This assay is designed to detect the N2 and E genes of SARS-CoV-2 via nucleic acid amplification. A Not Detected result does not preclude COVID-19 infection since the adequacy of sample collection and/or low viral burden may result in presence of viral nucleic acids below the clinical sensitivity of this test method. Fact sheet for providers: www.fda.gov/media/566234/download Fact sheet for patients: www.fda.gov/media/146714/download This test has received FDA Emergency Use Authorization (EUA) and has been verified by [facility]. This test is only authorized for the duration of time that circumstances exist to justify the authorization of the emergency use of in vitro diagnostic tests for the detection of SARS-CoV-2 virus and/or diagnosis of COVID-19 infection under section 564(b)(1) of the Act, 21 U.S.C. 360bbb-3(b)(1), unless the authorization is terminated or revoked sooner. [facility] is certified under CLIA-88 as qualified to perform high complexity testing. Testing is performed in the [facility] laboratory located at [address] [place] [address]. Performed By: #### C OV19 ####[place] [address] Lab Specimen Source Nasal, Nasopharyngeal Normal [facility] Comment on above: Performed By: #### C OV19 ####[place] [address] CREATINE KINASEon 04-27-2020 CK [Catalytic activity/Vol] 77 U/L Normal 0 - 215 [facility] Comment on above: Performed By: #### C K #### [place] [address] CT ABDOMEN AND PELVIS W IV C ONTRASTon 04-27-2020 CT ABDOMEN AND PELVIS W IV CONTRAST Patient Name: LU GONZALES STUDY: CT ABDOMEN AND PELVIS W IV CONTRAST; 04/27/2020 3:28 pm INDICATION: stable. Nausea, vomiting and diarrhea for 1 day. Cramping and bloody stools. COMPARISON: None. ACCESSION NUMBER(S): [id number] ORDERING CLINICIAN: FLOR NOE TECHNIQUE: Contiguous axial images were obtained through the abdomen and pelvis after the administration of 70 mL Omnipaque 350 intravenous contrast. Coronal and sagittal reformations were made. FINDINGS: LOWER CHEST: Lung bases are clear. ABDOMEN: LIVER: Within normal limits. BILE DUCTS: Nondilated. GALLBLADDER: The gallbladder is not distended and without calcified stones. PANCREAS: Within normal limits. No peripancreatic inflammation. SPLEEN: Within normal limits. ADRENAL GLANDS: Within normal limits. KIDNEYS AND URETERS: The kidneys enhance symmetrically without focal lesion. No hydroureteronephrosis bilaterally. Urinary bladder is minimally distended. VESSELS: There is no aneurysmal dilatation of the abdominal aorta. The IVC is within normal limits. BOWEL: There is mild diffuse colonic wall thickening with mild pericolonic inflammation. There is additional segmental mild wall thickening of small bowel. No bowel obstruction. Appendix is not discretely identified. There is some residual high attenuation enteric contrast within the distal small bowel and right colon. No focal diverticulitis. PERITONEUM/RETROPERITON EUM/LYMPH NODES: Trace intrapelvic free fluid is seen. No organized fluid collection. No free intraperitoneal air. Mild heterogeneity of the uterus with surface contour lobulation may be related to underlying fibroids. No retroperitoneal fluid collection or lymphadenopathy. ABDOMINAL WALL: Small broad-based fat containing periumbilical hernia present without inflammation. BONE AND SOFT TISSUE: Thoracolumbar mild levocurvature may be exaggerated by positioning. Mild multilevel disc space narrowing and predominantly anterior endplate spurring is present in the visualized spine. IMPRESSION: Mild circumferential wall thickening of the entire colon with mild pericolonic inflammation. Additional segmental mild wall thickening of small bowel. Overall findings compatible with a nonspecific infectious or inflammatory enterocolitis. No bowel obstruction. Appendix not discretely identified. No focal diverticulitis. Trace intrapelvic free fluid. No organized fluid collection. Electronically signed by: JAYE LEIGH MD [facility] Consult-Gastroenterologyon 0 04-27-2020 Consult-Gastroenterol ogy Service: Service: Gastroenterology Consult: Consult requested by (Attending Name): Terell Genao Reason: gi bleed History of Present Illness: HPI: LU GONZALES is a 64 year old Female presents the ER with abdominal pain rectal bleeding. States last evening she was eating dinner. Has home garden, ate some squash was marinated and grill. With first bite she felt better acrid taste in her mouth had another bite and stopped eating despite that within 6 hours of eating she became violently ill with abdominal cramping vomiting followed by diarrhea with rectal bleeding. She presented to the emergency room for evaluation. 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 Patient has had several episodes of cramping and rectal bleeding since admission to medical surgical floor. Denies any fevers, rigors or chills. No vomiting since admission. ate same food but has recovered quickly. Allergies denied Medications denied Medical history unremarkable. Surgical history unremarkable. BILLING SPEC 3 para 3. Family history both parents mother in mid 80s and father in early 90s from heart disease. 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 10 system review negative except that alludes above. Allergies: Neosporin: Rash Objective: Objective Information: T PRBPSpO2 [id number]/7693% Date/Time04/27 20:: 20: 20: 20:01 Range(36.8C - 37.3C ) (72 - 87 ) (16 - 20 ) (120 - 142 )/ (71 - 93 ) (93% - 98% ) Highest temp of 37.3 C was recorded at 04/27 20:01 Physical Exam: Constitutional: Well developed, awake/alert/oriented x3, no distress, alert and cooperative Eyes: PERRL, EOMI, clear sclera ENMT: mucous membranes moist, no apparent injury, no lesions seen Head/Neck: Neck supple, no apparent injury, thyroid without mass or tenderness, No JVD, trachea midline, no bruits Respiratory/Thorax: Patent airways, CTAB, normal breath sounds with good chest expansion, thorax symmetric Cardiovascular: Regular, rate and rhythm, no murmurs, 2+ equal pulses of the extremities, normal S 1and S 2 Gastrointestinal: Diffusely tender abdomen without rebound, guarding or peritoneal signs. Bowel sounds hyperactive throughout all 4 quadrants. Musculoskeletal: ROM intact, no joint swelling, normal strength Neurological: alert and oriented x3, intact senses, motor, response and reflexes, normal strength Lymphatic: No significant lymphadenopathy Psychological: Appropriate mood and behavior Skin: Warm and dry, no lesions, no rashes Medications: Medications: Continuous Medications --------- 1. Sodium Chloride 0.9% Infusion: 1000 mL IntraVenous 2. Sodium Chloride 0.9% Infusion: 1000 mL IntraVenous Scheduled Medications --------- 1. Ascorbic Acid: 500 mg Oral 2 Times a Day PRN Medications --------- 1. Magnesium Hydroxide -Al Hydrox -Simethicone Oral Liquid: 30 mL Oral Every 6 Hours 2. Magnesium Hydroxide Oral Liquid CONCENTRATE: 10 mL Oral Every 24 Hours 3. oxyCODONE Immediate Release: 5 mg Oral Every 4 Hours 4. oxyCODONE Immediate Release: 10 mg Oral Every 4 Hours 5. Promethazine: 25 mg Oral Every 6 Hours Recent Lab Results: Results: I have reviewed these laboratory results: Complete Blood Count + Differential 27-Apr-2020 13:31:00 ResultValue White Blood Cell Count 8.7 Red Blood Cell Count 4.09 HGB 13.4 HCT 39.3 MCV 96 MCHC 34.2 PLT 236 RDW-CV 12.4 Neutrophil % 77.7 Lymphocyte % 14.6 Monocyte % 6.1 Eosinophil % 1.0 Basophil % 0.6 Neutrophil Count 6.80 Lymphocyte Count 1.30 Monocyte Count 0.50 Eosinophil Count 0.10 Basophil Count 0.10 Comprehensive Metabolic Panel 27-Apr-2020 13:31:00 ResultValue Glucose, Serum 116 H NA 136 K 3.6 CL 103 Bicarbonate, Serum 25 Anion Gap, Serum 12 BUN 13 CREAT 0.81 GFR-Non >60 GFR- >60 Calcium, Serum 9.7 ALB 4.3 ALKP 38 T Pro 7.0 T Bili 0.5 Alanine Aminotransferase, Serum 12 Aspartate Transaminase, Serum 17 Lactate, Level 27-Apr-2020 13:31:00 ResultValue Lactate, Level 0.9 Radiology Results: Results: Impression: Mild circumferential wall thickening of the entire colon with mild pericolonic inflammation. Additional segmental mild wall thickening of small bowel. Overall findings compatible with a nonspecific infectious or inflammatory enterocolitis. No bowel obstruction. Appendix not discretely identified. No focal diverticulitis. Trace intrapelvic free fluid. No organized fluid collection. CT Abdomen and Pelvis with IV Contrast [Apr 27 2020 3:41PM] Assessment: Patient with bloody diarrhea with CT findings of enterocolitis. History compatible with toxic squash syndrome. Supportive therapy. No indication for colonoscopy at this time. Recommend IV fluids, Bentyl and supportive care. Consult Signoff: Consult Order ID: [id number] Electronic Signatures: [employer] DO (Signed 27-Apr-2020 20:46) Authored: Service, History of Present Illness, Allergies, Objective, Assessment/Recommendati ons, Signature/Cosignature/A ttestation Last Updated: 27-Apr-2020 20:46 by [employer]) [facility] History and Physicalon 04-27 History and Physical History of Present Illness: HPI: LU GONZALES is a 64 year old Female With no significant past medical history presented with nausea vomiting and bloody diarrhea since last night. According to the patient she gets some squash from her own backyard yesterday. The second squash that he tried to eat was better, she had a couple of bites but then stopped eating it. Soon after her started having symptoms and 20 minutes after that she started having crampy abdominal pain, which was 6/10, and the lower abdomen, followed up with bloody diarrhea. She has had 5-6 episodes of bloody stool which is mixed with dark red blood. She denies any fever, chills and has been having nausea and vomiting. The nausea and vomiting has stopped today but she keeps on having bloody stools. No dizziness, chest pain, shortness of breath. No previous history of GI bleeds. Had a colonoscopy when she was 46 years old and was normal, and occult blood last year which was normal. No recent antibiotic use. On presentation temperature was 37.2, pulse 73, respiratory rate 16, blood pressure 133/71, blood work showed a hemoglobin of 13.4, normal platelets, metabolic panel was unremarkable. CT abdomen showed mild inflammatory enterocolitis.She was given Bentyl and started on fluids in the ER. Past medical history as per history of present illness Review of systems negative except as per history of present illness Nonsmoker, drinks a glass of wine every night, lives with Family history positive for cancer Allergies: Neosporin: Rash Medications Prior to Admission: tumeric: 1 tab(s) orally once a day Zinc: 0.5 tab(s) orally once a day Vitamin C 500 mg oral capsule: 1 cap(s) orally once a day. Objective: Objective Information: T PRBPSpO2 [id number]/7197% Date/Time04/27 18: 18: 18: 18: 18:07 Range(36.8C - 37.2C ) (72 - 87 ) (16 - 20 ) (120 - 142 )/ (71 - 93 ) (97% - 98% ) Highest temp of 37.2 C was recorded at 04/27 18:07 Pain reported at 04/27 18:07: 5 = Moderate Physical Exam by System: Constitutional: Well developed, awake/alert/oriented x3, no distress, alert and cooperative Eyes: PERRL, EOMI, clear sclera ENMT: mucous membranes moist, no apparent injury, no lesions seen Respiratory/Thorax: Patent airways, CTAB, normal breath sounds with good chest expansion, thorax symmetric Cardiovascular: Regular, rate and rhythm, no murmurs, 2+ equal pulses of the extremities, normal S 1and S 2 Gastrointestinal: mild generalized abdominal tenderness Genitourinary: No Discharge, vesicles or other abnormalities Musculoskeletal: ROM intact, no joint swelling, normal strength Neurological: alert and oriented x3, intact senses, motor, response and reflexes, normal strength Skin: Warm and dry, no lesions, no rashes Recent Lab Results: Results: CBC: 04/27/2020 13:31 \ Hgb / \ 13.4 / WBC Plt 8.7 236 / Hct \ / 39.3 \ RBC: 4.09 MCV: 96 Neutrophil %: 77.7 CMP: 04/27/2020 13:31 NA+ Cl- BUN / 136 103 13 / --------- Glucose ---- 116 H K+ HCO3- Creat \ 3.6 25 0.81 \ \ T Bili / \ 0.5 / AST x ---- x ALT 17 x ---- x 12 / Alk P \ / 38 \ Calcium : 9.7 Anion Gap : 12 Albumin : 4.3 T Protein : 7.0 Assessment and Plan: Assessment: 64-year-old female with no significant past medical history admitted with colitis and lower GI bleed I believe her mild colitis secondary to eating poisonous squash For reference toxic squash syndrome Her hemoglobin is stable eill monitor and transfuse as necessary Blood pressure was reasonable as well I'll start her on clear liquid diet as per GIs advice IV fluid hydration Check a stool pathogen panel GI consult Pain control and supportive DVT prophylaxis with SCDs Signatures/Attestation/ Certification: Note Completion: Attending Provider Inpatient Certification StatementI certify this patients need for inpatient care based on the above documentation including; the order to admit as inpatient, the anticipated length of stay, diagnosis, problem list and plan of care, and discharge plan. Admission Order - View OnlyCurrent Admission Order. Admit to Inpatient Adult Community Admitting Diagnosis, K52.9 Colitis, nonspecific , Attending Provider Terell Genao Level of Care, Med/Surg Terell Genao Electronic Signatures: Terell Genao) (Signed 27-Apr-2020 19:15) Authored: History of Present Illness, Allergies, Medications Prior to Admission, Objective, Assessment and Plan, Signatures/Attestation/ Certification Last Updated: 27-Apr-2020 19:15 by Terell Genao () Normal [facility] LACTATEon 04-27-2020 Lactate [Moles/Vol] 0.9 mmol/L Normal 0.4 - 2.0 [facility] Comment on above: Result Comment: Shanta puncture immediately after or during the administration of Metamizole may lead to falsely low results. Testing should be performed immediately prior to Metamizole dosing. Performed By: #### L ACT #### [place] [address] LIPASEon 04-27-2020 Lipase [Catalytic activity/Vol] 8 U/L Low 9 - 82 [facility] Comment on above: Result Comment: Shanta puncture immediately after or during the administration of Metamizole may lead to falsely low results. Testing should be performed immediately prior to Metamizole dosing. Y-bkacpg-p-benzoquinone imine (metabolite of Acetaminophen) will generate erroneously low results in samples for patients that have taken toxic doses of acetaminophen. Performed By: #### L IPAS #### [place] [address] Patient Profile - Adult v2on 04-27-2020 Patient Profile - Adult v2 Profile: Initial Info: How to be AddressedDebbie Spoken Language PreferredEnglish (1) Source of Informationpatient Are you currently using the Personal [facility] Record or Gymboxno Are you interested in learning more about [employer]box for the management of your healthnot at this time Stated Reason for Admissionbloody stools Wants Family/Rep Notified of Admissionno Notify PCPdo not notify PCP Informed of Patient Visiting Rightsyes [facility] Patient Belongingsremains with patient Patient Belongings Remaining with Patientnight gown, cellphone, glasses, purse, discover card, kohls card Medications Brought to Hospitalno General Health: Weight in kg56.2 kilogram(s) Weight in kqi324.8 pound(s) Height in feet5 feet Height in inches1 inch(es) Height in cm154.9 centimeter(s) BMI (kg/m2)23.422 square meter Weight Methodactual (measured) Scale Typebed Height Methodstated [facility] Based Care: How would you like to participate in your carekeep informed of health What is the number one concern for you during this hospitalizationpain control What is the most important thing we can do to support you during this hospitalizationkeep pt informed about plan of care Is there anything we need to know to best care for youno Substance: Current or Former Substance Use never: Cigarette/Tobacco, e-Cigarette/Vaping, Street Drugs YES: Alcohol(2) Alcohol Use Statuscurrent alcohol Alcohol Amount1-2 drinks Alcohol Frequencydaily Alcohol Typewine Health Mgmt: Symptoms/Conditions Managed at Homenone Relationship/Environ: Primary Source of Support/Comfortspouse Lives Withspouse Living Arrangementshouse Resource/Environmental Concernsnone [facility] Anticipated at Transitionnone Significant IndicatorsComplete Information Review: Allergies, Home Meds and Significant Events have been Reviewed and Verified with Patient/Familyyes ALLERGY, INTOLERANCE, ADVERSE EVENT: Allergies: Neosporin: Drug, Rash, Active Electronic Signatures: Misty Rodriguez (ALANA) (Signed 27-Apr-2020 18:20) Authored: Profile, Additional Information Last Updated: 27-Apr-2020 18:20 by Misty Rodriguez (ALANA) References: 1. Data Referenced From Triage - ED 27-Apr-2020 13:18 2. Data Referenced From Risk Screen - Adult Emergency 27-Apr-2020 13:25 [facility] Provider Note - ED v2on 07-2 Provider Note - ED v2 Provider Note - ED v2: Chart Review: ED NOTES ED NOTES: 64-year-old female presents with crampy abdominal pain and hematochezia. Patient states she ate some squash last night and both her and her got extremely ill with associated crampy abdominal pain, nausea, vomiting and diarrhea. Patient states this quadrants from her garden. 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 Patient is in no acute distress when I examined her. Patient states the cramps and diarrhea come in waves. Patient has had multiple episodes of each. The patient was given 10 mg of Bentyl IM which did not help. Patient did have some recurrent cramping with bloody stools. The CT showed enterocolitis. Patient will be admitted for further diagnostic evaluation and treatment. I did speak to who agrees and will see the patient in consultation. I have explained all this to the patient. Patient is resting comfortable now with IV hydration. HISTORY OF PRESENTING ILLNESS LU is a 64 year old Female and was seen by me at 27-Apr-2020 12:40. The historian is the patient. Triage Information: Most recent Vital Sign Value Date Temp (F): 98.4 04-27-2020 13:18 Temp (C): 36.8 04-27-2020 13:18 Heart Rate (beats/min): 87 04-27-2020 13:18 Respirations (breaths/min): 20 04-27-2020 13:18 SpO2 (%): 98 04-27-2020 13:18 BP Systolic (mm Hg): 142 04-27-2020 13:18 BP Diastolic (mm Hg): 93 04-27-2020 13:18 PAST MEDICAL HISTORY ATTESTATION: I have reviewed and confirmed nurse's/medic's notes for patient's medications, allergies, medical history, and surgical history ALLERGIES/INTOLERANCES: Allergy Allergen: Neosporin Type: Drug Reaction: Rash HEALTH HISTORY: No documented data. OUTPATIENT MEDICATIONS: Home Medications Review Status for Reconciliation: Complete Med Status: No Current Medications SIGNIFICANT EVENTS: No documented data. REVIEW OF SYSTEMS GASTROINTESTINAL: POSITIVE for: diarrhea, nausea and vomiting; hematochezia All other systems reviewed and are negative PHYSICAL EXAM CONSTITUTIONAL: Well appearing, well nourished, awake, alert, oriented to person, place, time/situation and in no apparent distress. HENMT: Airway patent, ears with clear tympanic membranes bilaterally. Nasal mucosa clear. Mouth with normal mucosa. Throat has no vesicles, no oropharyngeal exudates and uvula is midline. Face with no lymph node enlargement. EYES: Clear bilaterally, pupils equal, round and reactive to light. CARDIOVASCULAR: Normal rate, regular rhythm. Heart sounds S1, S2. No murmurs, rubs or gallops. PMI non-displaced. RESPIRATORY: Breath sounds clear and equal bilaterally. GASTROINTESTINAL: Abdomen soft, non-distended, no rebound, no guarding. Bowel sounds normal in all 4 quadrants. GENITOURINARY: No discharge, no lesions. MUSCULOSKELETAL: Spine appears normal, range of motion is not limited, no muscle or joint tenderness. NEUROLOGICAL: Alert and oriented, no focal deficits, no motor or sensory deficits. SKIN: Skin normal color for race, warm, dry and intact. No evidence of trauma. PSYCHIATRIC: Alert and oriented to person, place, time/situation. normal mood and affect. No apparent risk to self or others. HEME/LYMPH: No adenopathy or splenomegaly. No cervical, supraclavicular or inguinal lymphadenopathy. RESULTS/VITAL SIGNS RESULTS: Recent Lab Results: I have reviewed these laboratory results: Complete Blood Count + Differential 27-Apr-2020 13:31:00 ResultValue White Blood Cell Count 8.7 Red Blood Cell Count 4.09 HGB 13.4 HCT 39.3 MCV 96 MCHC 34.2 PLT 236 RDW-CV 12.4 Neutrophil % 77.7 Lymphocyte % 14.6 Monocyte % 6.1 Eosinophil % 1.0 Basophil % 0.6 Neutrophil Count 6.80 Lymphocyte Count 1.30 Monocyte Count 0.50 Eosinophil Count 0.10 Basophil Count 0.10 Comprehensive Metabolic Panel 27-Apr-2020 13:31:00 ResultValue Glucose, Serum 116 H NA 136 K 3.6 CL 103 Bicarbonate, Serum 25 Anion Gap, Serum 12 BUN 13 CREAT 0.81 GFR-Non >60 GFR- >60 Calcium, Serum 9.7 ALB 4.3 ALKP 38 T Pro 7.0 T Bili 0.5 Alanine Aminotransferase, Serum 12 Aspartate Transaminase, Serum 17 Creatine Kinase, Level 27-Apr-2020 13:31:00 ResultValue Creatine Kinase, Level 77 Lactate, Level 27-Apr-2020 13:31:00 ResultValue Lactate, Level 0.9 Lipase, Serum 27-Apr-2020 13:31:00 ResultValue Lipase, Serum 8 L Urinalysis with Culture if Indicated 27-Apr-2020 13:17:00 ResultValue Color, Urine Yellow Reference Range: STRAW,YELLOW Appearance, Urine CLEAR Specific [place], Urine 1.021 pH, Urine 5.0 Protein, Urine NEGATIVE Glucose, Urine NEGATIVE Blood, Urine NEGATIVE Ketones, Urine NEGATIVE Bilirubin, Urine NEGATIVE Urobilinogen, Urine <2.0 Nitrite, Urine Negative Leukocyte Esterase, Urine NEGATIVE Radiology Results: Impression: Mild circumferential wall thickening of the entire colon with mild pericolonic inflammation. Additional segmental mild wall thickening of small bowel. Overall findings compatible with a nonspecific infectious or inflammatory enterocolitis. No bowel obstruction. Appendix not discretely identified. No focal diverticulitis. Trace intrapelvic free fluid. No organized fluid collection. CT Abdomen and Pelvis with IV Contrast [Apr 27 2020 3:41PM] VITAL SIGNS: T PRBP SpO2O2(LPM) %FiO2 Method 27-Apr-2020 15:53:[id number] 97 27-Apr-2020 15:38:[id number]/72 98 27-Apr-2020 13:18:[id number]/93 98 room air, no respiratory support 27-Apr-2020 12:38:[id number]/93 98 room air, no respiratory support CLINICAL IMPRESSION Diagnosis/Annotation: ED Dx Name:Colitis, nonspecific Code:K52.9 Dispostion: hospitalized Admit to: [facility]. Admitting Considerations: ATTESTATION CRITICAL CARE TIME Is this a critically ill patient: no Electronic Signatures: Flor Noe () (Signed 27-Apr-2020 16:21) Authored: Provider Note - ED v2 Last Updated: 27-Apr-2020 16:21 by Flor Noe () [facility] Risk Screen - Adult Emergenc yon 04-27-2020 Risk Screen - Adult Emergency Preferred Language: Preferred Language: Preferred Language for Discussing Health Care (patient/designee)Santana parham Advanced Directives: Advance Directive/DNRno Family Violence Adult: Abuse Screen: Are you or have you been threatened or abused physically, emotionally, or sexually by anyoneno Learning Assessment (Patient): Learning Assessment (Patient): Patient is Able to be Assessed for Learningyes Factors Influencing Readiness to Learnn/a Factors that Impact Ability to Learnnone Devices/Methods Used to Communicatenone Learning Preferencesverbal instruction; written material Cultural Considerationsnone Developmental Considerationsnone Church Considerationsnone Learning Assessment (Other Learner): Learning Assessment (Other Learner): Other learner availableno Pressure Injury/TB/Substance: Pressure Injury: Do you have a coughno Substance Use Current or Former HistoryYES: Alcohol Alcohol Usedaily Admission Risk Screen: Significant IndicatorsComplete CAGE: CAGE: Is this an injured patient at a [place] Center [place] [place] no Electronic Signatures: Analilia Milan (RN) (Signed 27-Apr-2020 13:25) Authored: Preferred Language, Advanced Directives, Family Violence Adult, Learning Assessment (Patient), Learning Assessment (Other Learner), Pressure Injury/TB/Substance, CAGE Last Updated: 27-Apr-2020 13:25 by Analilia iMlan (RN) [facility] Triage - EDon 04-27-2020 Triage - ED Chart Review: CHIEF COMPLAINT LU GONZALES is a Female patient with a chief complaint of diarrhea (c/o n/v/d since last night, states it started shortly after eating squash. c/o abd cramping, and bloody stools today.). Triage Date/Time: 27-Apr-2020 12:38 Pain Rating (0-10): 5 = Moderate Pain location: abd Vital Signs: Temperature: 98.4F ( 36.8C) Blood Pressure: 142/93 Mean: Heart Rate: 87 Respiratory Rate: 20 Pulse Oximetry: 98% on room air, no respiratory support. Height: 5 feet 1.00 inches. 154.9 CM Weight: 115.7 pounds. Calculated 52.5 kg. (stated) Calculated BMI (kg/m2): 21.880 Calculated BSA (m2) 1.50 [place] Coma Scale: Best Eye Response: (E4) spontaneous Best Motor Response: (M6) obeys commands Best Verbal Response: (V5) oriented [place] Score: 15 Allergies: yes Patient has homicidal thoughts: no BRADLY: 3 Symptoms Are POSITIVE For: diarrhea, nausea, rectal blood and vomiting. Symptoms Are Negative For: fever. Risk Screens Suicide Risk Screen In the Past Month: Have you wished you were or wished you could go to sleep and not wake up no In the Past Month: Have you had any actual thoughts of killing yourself no In Your Lifetime: Have you ever done anything, started to do anything, or prepared to do anything to end your life no Richard Fall Scale Screening Has the patient fallen before (or is the patient in the ED as a result of a fall) has not had a fall Does the patient have an impaired gait does not have impaired gait Is the patient cognitively impaired not cognitively impaired Interventions: Richard Fall Interventions: *patient oriented to surroundings and call system, * patient/family falls education completed and documented, *patients fall status communicated during bedside handoff, *whiteboard updated, *mode of toileting discussed with patient, *bed in low position with brakes locked, *call light in reach, * non-skid footwear PAIN Pain Scale Used: VIRGIE Pain Rating (0-10): 5 = Moderate ARRIVAL INFORMATION Means of Arrival: Ambulatory Mode of Arrival: private vehicle Arrival From: home Accompanied By: self Language: Spoken Language Preferred: Norwegian Reading Language Preferred: Norwegian Present on Arrival: Device Present on Arrival to ED: no PRIMARY ASSESSMENT LU GONZALES's primary assessment is Within Defined Limits. The airway is open and patent. Breathing spontaneous and unlabored with clear breath sounds bilaterally. Circulation is normal with good peripheral pulses. Skin is warm and dry and color is normal for race. TRAVEL HISTORY Travel History Coronavirus Screening: no exposure or symptoms Travel Exposure History: NO travel to International locations in the past 30 days Past Medical History: Past Medical History Reviewedyes Electronic Signatures: Analilia Milan (ALANA) (Signed 27-Apr-2020 13:24) Authored: Triage, Past Medical History Last Updated: 27-Apr-2020 13:24 by Analilia Milan (ALANA) Normal [facility] URINALYSIS WITH CULTURE IF I NDICATEDon 04-27-2020 Appearance (U) CLEAR Normal CLEAR [facility] Comment on above: Performed By: #### U ARFX #### [address] [address] Bilirubin (U) [Mass/Vol] Negative Normal NEGATIVE [facility] Comment on above: Performed By: #### U ARFX #### [address] [address] BLOOD Negative Normal NEGATIVE [facility] Comment on above: Performed By: #### U ARFX #### [place] [address] Color (U) Yellow Normal STRAW,YELLOW [facility] Comment on above: Performed By: #### U ARFX #### [place] [address] Glucose [Mass/Vol] Negative Normal NEGATIVE [facility] Comment on above: Performed By: #### U ARFX #### [place] [address] Ketones Ql (U) Negative Normal NEGATIVE [facility] Comment on above: Performed By: #### U ARFX #### [place] [address] Leukocyte esterase Test strip Ql (U) Negative Normal NEGATIVE [facility] Comment on above: Performed By: #### U ARFX #### [place] [address] Nitrite Ql (U) Negative Normal NEGATIVE [facility] Comment on above: Performed By: #### U ARFX #### [place] [address] pH (Bld) 5.0 Normal 5.0 - 8.0 [facility] Comment on above: Performed By: #### U ARFX #### [place] [address] Protein (U) [Mass/Vol] Negative Normal NEGATIVE [facility] Comment on above: Performed By: #### U ARFX #### [place] [address] Specific gravity (U) [Rel density] 1.021 Normal 1.005 - 1.035 [facility] Comment on above: Performed By: #### U ARFX #### [place] [address] Urobilinogen Qn (U) <2.0 Normal 0.0 - 1.9 [facility] Comment on above: Performed By: #### U ARFX #### [place] [address] Lab Specimen Source Normal [facility] Comment on above: Performed By: #### U ARFX #### [id number] [place] [address] OCT OPTIC NERVE CIRRUS OU (B OTH EYES) [facility] Encounters Encounter Date Encounter Type Care Provider Facility Start: 10-10-2024 End: 10-10-2024 ambulatory BERTA MAR Facility:[facility] Start: 10-10-2024 End: 10-10-2024 Patient encounter procedure Lakshmi Santiago OD Work Phone: Optometry Comment on above: Presbyopia (Primary Dx) Start: 09-18-2024 End: 09-18-2024 ambulatory BERTA MAR Facility:[facility] Start: 09-18-2024 End: 09-18-2024 Patient encounter procedure Kee Marrero OD Work Phone: Optometry Comment on above: Glaucoma suspect of both eyes (Primary Dx); Ocular hypertension, bilateral; Combined form of senile cataract of both eyes; Dermatochalasis of both upper eyelids; Hyperopia, bilateral; Regular astigmatism, bilateral; Presbyopia Start: 04-03-2024 Documentation procedure Mammog katalina Coordinator [facility] Department Start: 04-03-2024 Letter encounter Mammography Coordinator [facility] Start: 04-03-2024 End: 04-03-2024 ambulatory BERTA MAR Facility:[facility] Start: 04-03-2024 End: 04-03-2024 Subsequent hospital visit by physician Berta Mar DO Work Phone: Mammogram Start: 03-14-2024 Encounter for genera l adult medical examination without abnormal findings Berta Mar [facility] Start: 03-06-2024 End: 03-06-2024 ambulatory Berta Mar Facility:[facility] Start: 09-06-2023 End: 09-06-2023 Patient encounter procedure Kee Marrero OD Work Phone: Optometry Comment on above: Glaucoma suspect of both eyes (Primary Dx); Ocular hypertension, bilateral; Dermatochalasis of both upper eyelids; Combined form of senile cataract of both eyes; Hyperopia, bilateral; Regular astigmatism, left eye; Presbyopia Start: 08-30-2022 End: 08-30-2022 Patient encounter procedure Kee Marrero OD Work Phone: Optometry Comment on above: Glaucoma suspect of both eyes (Primary Dx); Ocular hypertension, bilateral; Dermatochalasis of both upper eyelids; Combined form of senile cataract of both eyes; Hyperopia, bilateral; Regular astigmatism, bilateral; Presbyopia Start: 06-29-2022 End: 06-29-2022 ambulatory [facility] Work Phone: Start: 06-29-2022 End: 06-29-2022 Patient encounter procedure [facility] [place] Start: 06-04-2010 End: 07-04-2012 Patient encounter status Berta Mar DO Work Phone: [facility] Procedures Date Procedure Procedure Detail Performing Clinician Start: 09-18-2024 End: 09-18-2024 Visual field xm uni/bi w/interp extended exam Kee Marrero OD Work Phone: Start: 04-03-2024 Screening digital br east tomosynthesis bi [facility] Provider Start: 08-30-2022 Computerized ophthal kourtney imaging optic nerve Kee Marrero OD Work Phone: Start: 12-31-2018 Mammography Kee taylor II, OD Work Phone: Start: 09-13-2011 Lipid 1996 panel - S edis or Plasma Kee Marrero II, OD Work Phone: Start: 10-09-2001 Colonoscopy Kee taylor II, OD Work Phone: Plan of Treatment Date Care Activity Detail Author Start: 2028 RSV Vaccine (1 - 1-d ose 75+ series) RSV Vaccine (1 - 1-dose 75+ series) [facility] Start: 09-08-2026 OCT OPTIC NERVE CIRR US OU (BOTH EYES) OCT OPTIC NERVE CIRRUS OU (BOTH EYES) [facility] Imaging Routine 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, bilateral Expected: 09/08/2026 [facility] Comment on above: Expected: 09/08/2026 Start: 09-08-2026 VISUAL FIELD 24-2 OU (BOTH EYES) VISUAL FIELD 24-2 OU (BOTH EYES) [facility] Imaging Routine 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, bilateral Expected: 09/08/2026 [facility] Work Phone: Comment on above: Expected: 09/08/2026 Start: 01-14-2026 End: 01-14-2026 Patient encounter procedure 01/14/2026 1:00 PM EDT Office Visit [facility] [address] [place] [address] Kee Marrero II, OD [address] [place] [address] eye exam/[employer] Comment on above: eye exam/[employer] Start: 08-26-2025 OCT OPTIC NERVE CIRR US OU (BOTH EYES) OCT OPTIC NERVE CIRRUS OU (BOTH EYES) [facility] Imaging Routine Glaucoma suspect of both eyes Expected: 08/26/2025 [facility] Work Phone: Comment on above: Expected: 08/26/2025 Start: 08-26-2025 VISUAL FIELD 24-2 OU (BOTH EYES) VISUAL FIELD 24-2 OU (BOTH EYES) [facility] Imaging Routine Glaucoma suspect of both eyes Expected: 08/26/2025 [facility] Work Phone: Comment on above: Expected: 08/26/2025 Start: 07-11-2025 Screening for malign ant neoplasm of colon Cologuard (FIT-DNA) [facility] Start: 04-03-2025 Screening for malign ant neoplasm of breast Mammogram Screening [facility] Start: 10-09-2024 Advance Directive Discussion Advance Directive Discussion [facility] Start: 06-09-2024 Covid-19 Vaccine () Covid-19 Vaccine () [facility] Start: 06-09-2024 Influenza vaccination [facility] Start: 10-09-2023 Advance Directive Discussion Advance Directive Discussion [facility] Start: 10-09-2023 Behavioral Health Screening Behavioral Health Screening [facility] Start: 06-09-2023 Covid-19 Vaccine ( season) Covid-19 Vaccine ( season) [facility] Start: 06-09-2023 Influenza vaccination Influenza Vacc ine (#1) [facility] Start: 04-29-2023 Diabetes Screening Diabetes Screenin g [facility] Start: 10-09-2022 Advance Directive Discussion Advance Directive Discussion [facility] Start: 10-09-2022 Depression Assessment Depression Ass essment [facility] Start: 07-12-2022 Screening for malign ant neoplasm of colon Colorectal Cancer Screening [facility] Start: 06-09-2022 Influenza vaccination INFLUENZA (#1) [facility] Start: 10-09-2021 ADVANCE DIRECTIVE DISCUSSION ADVANCE DIRECTIVE DISCUSSION [facility] Start: 10-09-2021 DEPRESSION ASSESSMENT DEPRESSION ASS ESSMENT [facility] Start: 01-01-2020 Mammography [facility] Start: 01-01-2020 Screening for malign ant neoplasm of breast Mammogram Screening [facility] Start: 2018 BONE DENSITY BONE DENSITY [facility] Start: 2018 Bone Density Screening Bone Density Screening [facility] Start: 2018 Pneumococcal Vaccine : 65+ (1 - PCV) Pneumococcal Vaccine: 65+ (1 - PCV) [facility] Start: 2018 Pneumococcal Vaccine : 65+ (1 of 1 - PCV) Pneumococcal Vaccine: 65+ (1 of 1 - PCV) [facility] Start: 2018 PNEUMOCOCCAL: 65+ (1 - PCV) PNEUMOCOCCAL: 65+ (1 - PCV) [facility] Start: 2018 Screening for osteoporosis Bone Density Screening [facility] Start: 09-13-2016 Lipid 1996 panel - S edis or Plasma Lipid Screening [facility] Start: 09-13-2016 Lipid panel Lipid Screening [facility] Start: 09-13-2016 LIPID SCREEN LIPID SCREEN [facility] Start: 09-13-2014 DIABETES SCREEN [facility]CREEN [facility] Start: 09-13-2014 Diabetes Screening Diabetes Screenin g [facility] Start: 2013 RSV Vaccine (1 - 1-d ose 60+ series) RSV Vaccine (1 - 1-dose 60+ series) [facility] Start: 10-09-2011 Colonoscopy COLONOSCOPY [facility] Start: 10-09-2011 COLORECTAL CANCER SCREENING COLORECTAL CANCER SCREENING [facility] Start: 10-09-2011 Screening for malign ant neoplasm of colon Colonoscopy [facility] Start: 2003 Pneumococcal Vaccine : 50+ (1 of 1 - PCV) Pneumococcal Vaccine: 50+ (1 of 1 - PCV) [facility] Start: 2003 SHINGRIX VACCINE (1 of 2) SHINGRIX VACCINE (1 of 2) [facility] Start: 1998 COLOGUARD (FIT-DNA) COLOGUARD (FIT-D NA) [facility] Start: [address] COLONOGRAPHY [facility] Start: 1998 FECAL OCCULT BLOOD FECAL OCCULT BLOO D [facility] Start: 1998 Screening for malign ant neoplasm of colon [facility] Start: 1998 SIGMOIDOSCOPY SIGMOIDOSCOPY [facility] Start: 1972 Urine microalbumin profile [facility] Start: 1971 Anxiety Screening Anxiety Screening [facility] Start: 1971 Depression Screening Depression Scre ening [facility] Start: 1971 HEPATITIS C SCREENING HEPATITIS C [facility] Start: 1971 Hepatitis C screening Hepatitis C Sc [facility] Start: 1953 COVID-19 VACCINE (#1) COVID-19 VACCI NE (#1) [facility] Payers Date Payer Category Payer Self-pay [id number] 2021 Medicare [employer] MEDICARE A ETNA MEDICARE PPO [id number] 2021-Present [phone] [address] [place] [address] PPO [id number] 2021 Private Health Insurance [id number] 2018 Unknown [employer] [id number] 06/09/2018-Present [address] [place] [address] Indemnity [id number] 06-09-2018 Unknown [id number] 09-20-2013 Unknown [facility] [id number] Unknown [id number] Social History Date Type Detail Facility Tobacco smoking stat [facility] Unknown if ever smoked [facility] Work Phone: Start: 1955 Sex Assigned At Female [facility] Work Phone: Start: 07-04-2012 Tobacco smoking stat [facility] Never smoked tobacco [facility] Work Phone: Start: 07-04-2012 Tobacco use and exposure Smokeless tobacco non-user [facility] Work Phone: Start: 08-30-2022 End: 10-10-2024 Alcohol intake Current drinker of alcohol (finding) [facility] Start: 1955 Sex Assigned At Not on file [facility] Start: 08-20-2022 End: 08-30-2022 Exposure to SARS-CoV-2 (event) Not sure [facility] Start: 09-06-2023 End: 04-03-2024 History of Social function [facility] Start: 09-06-2023 End: 04-03-2024 Tobacco use panel [facility] National Score (1-100), lower number is lower risk 59 [facility] Clinical Notes 12-17-2010 to 10-10-2024 Patient InstructionsLakshmi Santiago, OD - 10/10/2024 11:37 AM ESTPatient InstructionsKee Marrero II, OD - 09/18/2024 1:52 PM ESTLetter - Coordinator, Mammography - 04/03/2024 8:38 PM EDT Note Date & Type Note Facility 10-10-2024 Instructions Lakshmi Santiago, OD - 10/10/2024 11:58 AM EST Recommend over the counter artificial tears twice a day, or more as needed for dry/ tired eyes. Good brands of tears are Systane, Refresh, Soothe, Blink, or Thereatears. Avoid drops for red eyes. Preservative free tears are best when using more than four times per day. Recommend taking breaks from computer/phone every 20-30 minutes, and to remember to blink when using electronics. Recommend over the counter allergy drops Alaway or Zaditor twice a day, or Pataday once a day throughout allergy season for itchy eyes. Cool compresses as needed for comfort, and avoid itching or rubbing eyes. Return to clinic with increase in symptoms, otherwise monitor yearly. documented in this encounter [facility] 10-10-2024 Note HNO ID: [id number] Author: LAKSHMI SANTIAGO OD Service: ? Author Type: LAUNDRY CLERK Type: Progress Notes Filed: 10/10/2024 12:02 Note Text: ASSESSMENT/PLAN: 1. Presbyopia - ICD9: 367.4, ICD10: H52.4 Spectacle check at no charge. Updated spectacle prescription as doctor's remake, and educated patient to adaptation to new prescription. Recommend over the counter artificial tears twice a day, or more as needed for dry/ tired eyes. Good brands of tears are Systane, Refresh, Soothe, Blink, or Thereatears. Avoid drops for red eyes. Preservative free tears are best when using more than four times per day. Recommend taking breaks from computer/phone every 20-30 minutes, and to remember to blink when using electronics. Recommend over the counter allergy drops Alaway or Zaditor twice a day, or Pataday once a day throughout allergy season for itchy eyes. Cool compresses as needed for comfort, and avoid itching or rubbing eyes. Return to clinic with changes to vision, otherwise follow up yearly. Lakshmi Santiago, PAWAN October 10, 2024 12:02 PM [facility] 10-10-2024 History of Presen t illness Narrative ASSESSMENT/PLAN: 1. Presbyopia - ICD9: 367.4, ICD10: H52.4 Spectacle check at no charge. Updated spectacle prescription as doctor's remake, and educated patient to adaptation to new prescription. Recommend over the counter artificial tears twice a day, or more as needed for dry/ tired eyes. Good brands of tears are Systane, Refresh, Soothe, Blink, or Thereatears. Avoid drops for red eyes. Preservative free tears are best when using more than four times per day. Recommend taking breaks from computer/phone every 20-30 minutes, and to remember to blink when using electronics. Recommend over the counter allergy drops Alaway or Zaditor twice a day, or Pataday once a day throughout allergy season for itchy eyes. Cool compresses as needed for comfort, and avoid itching or rubbing eyes. Return to clinic with changes to vision, otherwise follow up yearly. 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 Stable Visual field and nerve fiber layers in areas scanned today. Repeat in one year. No treatment indicated at this time. Discussed need for continued close observation to minimize chance of future vision loss. H25.813 Combined form of senile cataract of both eyes Comment: Slow progression both eyes. Monitor for change. H02.831, H02.834 Dermatochalasis of both upper eyelids Comment: Discussed surgical fix if interferes with vision. Monitor for now. H52.03 Hyperopia, bilateral H52.223 Regular astigmatism, bilateral H52.4 Presbyopia Comment: Small shift in glasses power right eye. Update glasses as desired. I have confirmed and edited as necessary the relevant HPI, ophthalmic history, ROS, and the neuro exam findings as obtained by others. I have seen and examined Lu Mady Taylornaseem. I have discussed the case and the management of this patient's care with the Resident/Fellow, if applicable. I also have reviewed and agree with the assessment and plan as stated above and agree with all of its relevant components. documented in this encounter [facility] 09-18-2024 Note HNO ID: [id number] Author: KEE MARRERO II, OD Service: ? 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 Stable Visual field and nerve fiber layers in areas scanned today. Repeat in one year. No treatment indicated at this time. Discussed need for continued close observation to minimize chance of future vision loss. H25.813 Combined form of senile cataract of both eyes Comment: Slow progression both eyes. Monitor for change. H02.831, H02.834 Dermatochalasis of both upper eyelids Comment: Discussed surgical fix if interferes with vision. Monitor for now. H52.03 Hyperopia, bilateral H52.223 Regular astigmatism, bilateral H52.4 Presbyopia Comment: Small shift in glasses power right eye. Update glasses as desired. I have confirmed and edited as necessary the relevant HPI, ophthalmic history, ROS, and the neuro exam findings as obtained by others. I have seen and examined Lu Mady Taylornaseem. I have discussed the case and the management of this patient's care with the Resident/Fellow, if applicable. I also have reviewed and agree with the assessment and plan as stated above and agree with all of its relevant components. 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 Stable Visual field and nerve fiber layers in areas scanned today. Repeat in one year. No treatment indicated at this time. Discussed need for continued close observation to minimize chance of future vision loss. H25.813 Combined form of senile cataract of both eyes Comment: Slow progression both eyes. Monitor for change. H02.831, H02.834 Dermatochalasis of both upper eyelids Comment: Discussed surgical fix if interferes with vision. Monitor for now. H52.03 Hyperopia, bilateral H52.223 Regular astigmatism, bilateral H52.4 Presbyopia Comment: Small shift in glasses power right eye. Update glasses as desired. I have confirmed and edited as necessary the relevant HPI, ophthalmic history, ROS, and the neuro exam findings as obtained by others. I have seen and examined Lu Gonzales. I have discussed the case and the management of this patient's care with the Resident/Fellow, if applicable. I also have reviewed and agree with the assessment and plan as stated above and agree with all of its relevant components. documented in this encounter [facility] 09-18-2024 Note Date of Procedure 09/18/2024. Sheet Pile Driver Operator Information Automotive General Sales Manager: marilee. Start time: 1:08 PM. Reliability Right Eye Good. Left Eye Good. Interpretation Right Eye Normal. Left Eye Normal. Interval Change Right Eye Stable. Left Eye Stable. Notes Monitor yearly [facility] 09-18-2024 Note Date of Procedure 09/18/2024. Sheet Pile Driver Operator Information Automotive General Sales Manager: marilee. Start time: 1:08 PM. NFL Interpretation Right Eye Inferior loss, Temporal loss. Left Eye Temporal loss. Ganglion Cell Layer Thickness Right Eye Inferior loss. Left Eye Normal. Interval Change Right Eye Stable. Left Eye Stable. Notes Continue yearly observation [facility] 04-03-2024 Note Formatting of this n ote might be different from the original. April 04, 2024 PID: [id number] Lu Gonzales [facility] [place] [address] Dear Ms. Taylornaseem, We are pleased to inform you that the results of your recent breast imaging exam on 04/03/2024 are normal. Your mammogram demonstrates that you have dense breast tissue, which could hide abnormalities. Dense breast tissue, in and of itself, is a relatively common condition. Therefore, this information is not provided to cause undue concern; rather, it is to raise your awareness and promote discussion with your health care provider regarding the presence of dense breast tissue in addition to other risk factors. Early detection of cancer is very important. We also understand recommendations regarding breast cancer screening are controversial. Please discuss with your primary care provider which strategy is best for you and whether a mammogram is right for you. Your imaging studies and report will be kept on file at [facility] as part of your permanent medical record and are available for your continuing care. Thank you for allowing us to help in meeting your health care needs. Sincerely, Dr. Milan Interpreting Radiologist [facility] (Normal over 40) [facility] 04-03-2024 Miscellaneous Notes April 04, 2024 PID: [id number] Lu Gonzales [address] [place] [address] Dear Ms. Gonzales, We are pleased to inform you that the results of your recent breast imaging exam on 04/03/2024 are normal. Your mammogram demonstrates that you have dense breast tissue, which could hide abnormalities. Dense breast tissue, in and of itself, is a relatively common condition. Therefore, this information is not provided to cause undue concern; rather, it is to raise your awareness and promote discussion with your health care provider regarding the presence of dense breast tissue in addition to other risk factors. Early detection of cancer is very important. We also understand recommendations regarding breast cancer screening are controversial. Please discuss with your primary care provider which strategy is best for you and whether a mammogram is right for you. Your imaging studies and report will be kept on file at [facility] as part of your permanent medical record and are available for your continuing care. Thank you for allowing us to help in meeting your health care needs. Sincerely, Dr. Milan Interpreting Radiologist [facility] (Normal over 40) documented in this encounter [facility] 04-03-2024 History of Presen t illness Narrative Radiology Service Progress Note PATIENT NAME: Lu Gonzales DATE OF SERVICE: April 03, 2024 TIME: 11:40 AM PATIENT IDENTITY VERIFICATION COMPLETED USING TWO (2) IDENTIFIERS: Name and Date of confirmed by patient verbally. FALL SCREENING: Has the patient had 2 falls in the last year or 1 fall with injury or currently using an Ambulatory Assistive Device (Walker, Cane, Wheelchair, Crutches, etc.)? No PATIENT GENDER DATA: Female. status: : No status: NO. PATIENT RELEVANT IMPLANT DATA REVIEWED: Not Applicable PATIENT PRESENTS WITH AN IMPLANTABLE OR ATTACHED FIELD CROPS HARVEST MACHINE OPERATOR: No RADIOLOGY DEPARTMENT: Mammography PERIPHERAL IV DATA: Not applicable SIGNED BY: Dionna Negron April 03, 2024 11:40 AM documented in this encounter [facility] 04-03-2024 Note HNO ID: [id number] Author: SAROJ CASTRO Mammo Tech Service: ? Author Type: Technologist Type: Progress Notes Filed: 04/03/2024 11:40 Note Text: Radiology Service Progress Note PATIENT NAME: Lu Gonzales DATE OF SERVICE: April 03, 2024 TIME: 11:40 AM PATIENT IDENTITY VERIFICATION COMPLETED USING TWO (2) IDENTIFIERS: Name and Date of confirmed by patient verbally. FALL SCREENING: Has the patient had 2 falls in the last year or 1 fall with injury or currently using an Ambulatory Assistive Device (Walker, Cane, Wheelchair, Crutches, etc.)? No PATIENT GENDER DATA: Female. status: : No status: NO. 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 Monitor yearly. Repeat OCT NFA in one year. H02.831, H02.834 Dermatochalasis of both upper eyelids Comment: L>R. Starting to interfere with vision when tired or eyes swollen from allergies. Will tolerate for now. H25.813 Combined form of senile cataract of both eyes Comment: Slow progression both eyes. Monitor. H52.03 Hyperopia, bilateral H52.222 Regular astigmatism, left eye H52.4 Presbyopia Comment: Update glasses power to maximize visual performance. I have confirmed and edited as necessary the relevant ophthalmic history, ROS, and the neuro exam findings as obtained by others. I have seen and examined Lu Gonzales. I have discussed the case and the management of this patient's care with the Resident/Fellow, if applicable. I also have reviewed and agree with the assessment and plan as stated above and agree with all of its relevant components. 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 Monitor yearly. Repeat OCT NFA in one year. H02.831, H02.834 Dermatochalasis of both upper eyelids Comment: L>R. Starting to interfere with vision when tired or eyes swollen from allergies. Will tolerate for now. H25.813 Combined form of senile cataract of both eyes Comment: Slow progression both eyes. Monitor. H52.03 Hyperopia, bilateral H52.222 Regular astigmatism, left eye H52.4 Presbyopia Comment: Update glasses power to maximize visual performance. I have confirmed and edited as necessary the relevant ophthalmic history, ROS, and the neuro exam findings as obtained by others. I have seen and examined Lu Gonzales. I have discussed the case and the management of this patient's care with the Resident/Fellow, if applicable. I also have reviewed and agree with the assessment and plan as stated above and agree with all of its relevant components. 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 Advise patient as to the risks of blindness with glaucoma. Advise patient as to status of condition and necessity of close monitoring as directed. H02.831, H02.834 Dermatochalasis of both upper eyelids Comment: Patient reports progression. Likely not bad enough for insurance coverage. Will monitor. H25.813 Combined form of senile cataract of both eyes Comment: Progression noted both eyes. Update glasses to maximize visual performance from scratched lenses. H52.03 Hyperopia, bilateral H52.223 Regular astigmatism, bilateral H52.4 Presbyopia Comment: Stable glasses power. I have confirmed and edited as necessary the relevant ophthalmic history, ROS, and the neuro exam findings as obtained by others. I have seen and examined Lu Gonzales. I have discussed the case and the management of this patient's care with the Resident/Fellow, if applicable. I also have reviewed and agree with the assessment and plan as stated above and agree with all of its relevant components. 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 Advise patient as to the risks of blindness with glaucoma. Advise patient as to status of condition and necessity of close monitoring as directed. H02.831, H02.834 Dermatochalasis of both upper eyelids Comment: Patient reports progression. Likely not bad enough for insurance coverage. Will monitor. H25.813 Combined form of senile cataract of both eyes Comment: Progression noted both eyes. Update glasses to maximize visual performance from scratched lenses. H52.03 Hyperopia, bilateral H52.223 Regular astigmatism, bilateral H52.4 Presbyopia Comment: Stable glasses power. I have confirmed and edited as necessary the relevant ophthalmic history, ROS, and the neuro exam findings as obtained by others. I have seen and examined Lu Gonzales. I have discussed the case and the management of this patient's care with the Resident/Fellow, if applicable. I also have reviewed and agree with the assessment and plan as stated above and agree with all of its relevant components. Kee Marrero II, OD documented in this encounter [facility] 12-17-2010 History of Past i llness Narrative Problem Noted Date Resolved Date Syncope and collapse 12/17/2010 07/12/2016 Overview: Multiple times, with illness -- vomiting is a well-established trigger Routine general medical exam ination at a health care facility 06/04/2010 07/04/2012 Overview: 06/04/2010, from Dexcom Routine gynecological examination 06/04/2010 07/04/2012 Overview: [facility], [facility] documented as of this encounter (statuses as of 08/30/2022) [facility] History of Past illness Narrative* Problem Noted Date Diagnosed Date Resolved Date Syncope and collapse 12/17/2010 016 Overview: Multiple times, with illness -- vomiting is a well-established trigger Routine general medical exam ination at a health care facility 06/04/2010 07/04/2012 Overview: 06/04/2010, from Dexcom Routine gynecological examination 06/04/2010 07/04/2012 Overview: [facility], [facility] documented as of this encounter (statuses as of 09/07/2023) [facility] noteNo assessment information availableWW[facility] Work Phone: Evaluation note* Diagnosis Glaucoma suspect of both eyes- Primary Preglaucoma, unspecified Ocular hypertension, 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 of 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 Hyperopia, bilateral Regular astigmatism, bilateral Presbyopia [facility] Glaucoma suspect of both eyes- Primary Preglaucoma, unspecified Ocular hypertension, 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 of 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 Hyperopia, bilateral Regular astigmatism, left eye Presbyopia [facility] Diagnosis Glaucoma suspect of both eyes- Primary Preglaucoma, unspecified Ocular hypertension, 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 Hyperopia, bilateral Regular astigmatism, bilateral Presbyopia documented in this [facility] Diagnosis Presbyopia- Primary documented in this encounter [facility] Summary Purpose Family History No Family History Records FoundNo Family History Records FoundNo Family History Records Found Advance Directives No Advanced Directives Records FoundNo Advanced Directives Records FoundNo Advanced Directives Records Found Hospital Course Note Send Summary: Discharge Summ bry Providers: Provider RoleProvider Name AttendingBrian Kaur Note Recipients: Berta Mar DO - [id number] [] Discharge: Summary: Admission Date: .27-Apr-2020 12:34:00 Discharge Date: 29-Apr-2020 Attending Physician at Discharge: Brian Kaur Admission Reason: Abdominal pain with nausea and vomiting and bloody diarrhea Final Discharge Diagnoses: Colitis, acute, Food poisoning, Procedures: 1. CT of the abdomen and pelvis 2. GI consultation Condition at Discharge: Satisfactory Disposition at Discharge: .Home Vital Signs: T PRBPSpO2 [id number]/7797% Date/Time04/29 8: 8: 8: 8: 8:27 Range(36.5C - 37.1C ) (68 - 71 ) (16 - 17 ) (111 - 137 )/ (69 - 77 ) (93% - 97% ) Highest temp of 37.1 C was recorded at 04/28 15:25 Physical Exam: Constitutional: Awake and alert; oriented x3 no apparent distress or respiratory distress Head/Neck: Neck is supple with no palpable lymphadenopathy, bruits or masses; trachea midline Respira (more content not included)... Medications Administered Section Active Administered Medications - up to 3 most recent administrations Medication Order MAR Action Action Date Dose Rate Site fluorescein-benoxinate 0.3-0.4 % 1 Drop (FLURESS) 1 Drop, BOTH EYES, DIRECTED, Starting on Mon09/06/23 at 1530, Until Amy 09/07/23 at 0329, Administer for applanation tonometry. In the event of a Fluress shortage, administer Chery-Fluor 1 drop into both eyes as directed for applanation tonometry Given 09/06/2023 3:30 PM EST 1 Drop PHENYLephrine 2.5 % 1 Drop (AK-DILATE, MILTON-SYNEPHRINE) 1 Drop, BOTH EYES, DIRECTED, Starting on Mon09/06/23 at 1530, Until Amy 09/07/23 at 0329, Administer for dilation PROTECT FROM LIGHT Given 09/06/2023 3:30 PM EST 1 Drop tropicamide 1 % 1 Drop (MYDRIACYL) 1 Drop, BOTH EYES, DIRECTED, Starting on Mon09/06/23 at 1530, Until Amy 09/07/23 at 0329, Administer for dilation Given 09/06/2023 3:30 PM EST 1 Drop Additional Source Comments INFORMATION SOURCE (unrecogn ized section and content) DATE CREATED AUTHOR 05/07/2020 [facility] DATE CREATED AUTHOR AUTHOR'S ORGANIZ ATION 03/16/2024 [facility] DATE CREATED AUTHOR AUTHOR'S ORGANIZ ATION 10/17/2024 [facility] Goals (unrecognized section and content) Goals may be documented in a n alternate section Source Comments (unrecognize d section and content) In the event this informatio n is protected by the Federal Confidentiality of Alcohol and Drug Abuse Patient Records regulations: The Federal rules restrict any use of the information to criminally investigate or prosecute any alcohol or drug abuse patient.[facility] the event this information is protected by the Federal Confidentiality of Alcohol and Drug Abuse Patient Records regulations: The Federal rules restrict any use of the information to criminally investigate or prosecute any alcohol or drug abuse patient.[facility] the event this information is protected by the Federal Confidentiality of Alcohol and Drug Abuse Patient Records regulations: The Federal rules restrict any use of the information to criminally investigate or prosecute any alcohol or drug abuse patient.[facility] the event this information is protected by the Federal Confidentiality of Alcohol and Drug Abuse Patient Records regulations: The Federal rules restrict any use of the information to criminally investigate or prosecute any alcohol or drug abuse patient.[facility] the event this information is protected by the Federal Confidentiality of Alcohol and Drug Abuse Patient Records regulations: The Federal rules restrict any use of the information to criminally investigate or prosecute any alcohol or drug abuse patient.[facility] the event this information is protected by the Federal Confidentiality of Alcohol and Drug Abuse Patient Records regulations: The Federal rules restrict any use of the information to criminally investigate or prosecute any alcohol or drug abuse patient.[facility] Reason for Visit (unrecogniz ed section and content) Reason Comments Glaucoma Suspect Evaluation Ocular Hypertension Evaluation Cataract Evaluation Reason Comments Cataract Evaluation Glaucoma Suspect Evaluation Ocular Hypertension Evaluation Reason Comments Glaucoma Suspect Evaluation Cataract Evaluation Ocular Hypertension Evaluation Reason Comments Refractive evaluation Care Teams (unrecognized sec tion and content) 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 Relationship Specialty Start Date End Date Berta Mar DO [address] [place], [place] [address] PCP - General Family Medicine 06/25/20 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 Relationship Specialty Start Date End Date Berta Mar DO [address] [place], [place] [address] PCP - General Family Medicine 06/25/20 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 Relationship Specialty Start Date End Date Berta Mar DO [address] [place], [place] [address] PCP - General Family Medicine 06/25/20 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 This clinical summary was aggregated from multiple sources. Caution should be exercised in using it in the provision of clinical care. This summary normalizes information from multiple sources, and as a consequence, information in this document may materially change the coding, format and clinical context of patient data. In addition, data may be omitted in some cases. CLINICAL DECISIONS SHOULD BE BASED ON THE PRIMARY CLINICAL RECORDS. [facility]. provides no warranty or guarantee of the accuracy or completeness of information in this document.
[2025-07-03 10:01] LABS: Mucous, Urine 0 SEEN /hpf (<or=2+); Red Blood Cells-Urine 0 SEEN /hpf (0-5); Squamous Epithelial Cells - UA 0 SEEN /hpf (5-10)
[2025-07-03 10:05] LABS: Color, Urine Yellow (Yellow); Glucose, Dipstick Normal (Normal); Ketone-Dipstick Negative (Negative); Leukocyte Esterase-Dipstick Negative /ul (Negative); Nitrite-Dipstick Negative (Negative); Occult Blood-Urine Negative /ul (Negative); Protein-Dipstick 15 mg/dl (Negative); Specific Gravity, Urine 1.010 (1.002-1.030); Urine Bilirubin Dipstick Negative (Negative)
[2025-07-03 10:16] LABS: AST(SGOT) 21 U/L (<=31); Alanine Aminotransfer ALT/SGPT 16 U/L (<=34); Albumin, Serum 4.3 g/dL (3.4-4.8); Alkaline Phosphatase 41 U/L (35-104); Anion Gap 18 (5-15); BUN 8 mg/dL (4-19); BUN/Creat Ratio 9.4 RATIO (10-20); CPK Total, Creatine Kinase 63 U/L (24-195); Calcium,Total 9.3 mg/dL (7.6-11.0); Carbon Dioxide 16.4 mmol/L (21.0-32.0); Chloride 99 mmol/L (98-108); Estimated Creatinine Clearance 45.14 ml/min (50-250); Globulin 3.3 g/dL (2.2-4.2); Glucose 135 mg/dL (70-99); Lipase 20 U/L (13-75); Potassium 3.8 mmol/L (3.3-5.1)
[2025-07-03 10:17] VITALS: BP 119/66; PULSE 87; RESP 18; TEMP 36.5
[2025-07-03 10:37] VITALS: BP 108/73; BP 113/63; BP 99/77; PULSE 82; PULSE 83; PULSE 93
[2025-07-03 11:21] VITALS: BP 109/60; PULSE 84; RESP 18; TEMP 36.8; O2SAT 97
== END 2025-07-03 11:38 | disposition home or self-care (01) ==
PROVIDERS: Emergency Provider Emergency Medicine; PCP Family Medicine; Visit Provider Emergency Medicine
DX: M62.830 Muscle spasm of back (principal); R42 Dizziness and giddiness; E86.0 Dehydration
CPT/HCPCS: 80053; 81001; 82550; 83690; 85025; 93005; 96374; 96376; 99283; A4216

== ENCOUNTER → 2025-07-10 | Outpatient (CLI) | payer MEDICARE, SELFPAY ==
[2025-07-10 15:24] LABS: AST(SGOT) 20 U/L (<=31); Alanine Aminotransfer ALT/SGPT 16 U/L (<=34); Albumin, Serum 4.4 g/dL (3.4-4.8); Alkaline Phosphatase 45 U/L (35-104); Anion Gap 15 (5-15); BUN 11 mg/dL (4-19); BUN/Creat Ratio 13.2 RATIO (10-20); Calcium,Total 9.9 mg/dL (7.6-11.0); Carbon Dioxide 22.1 mmol/L (21.0-32.0); Chloride 101 mmol/L (98-108); Cholesterol 230 mg/dL (<=200); Globulin 3.1 g/dL (2.2-4.2); Glucose 93 mg/dL (70-99); Low Density Lipoprotein Calc. 157 mg/dL; Potassium 4.0 mmol/L (3.3-5.1); Triglycerides 102 mg/dL; Very Low Density Lipoprotein 20 mg/dL (5-40); Vitamin B12 1642 pg/mL (180-914); Vitamin D,25 Hydroxy 72.9 ng/mL (30-100); cholesterol:hdl ratio screen 4.41
[2025-07-10 15:25] LABS: Hematocrit 33.7 % (37-47); Hemoglobin 11.9 g/dL (12.0-15.0); Immature Granulocytes Count 0.010 X10^3/uL (0.0-0.0); Mean Corp Hgb Conc 35.3 g/dL (32-36); Mean Corpuscular Volume 92.1 fL (81-99); Mean Platelet Vol. 10.0 fl (6.2-12.0); NRBC Flagged by Analyzer 0 % (0-5); Platelet Count 327 K/mm3 (150-450); RBC Distribution Width CV 11.9 % (11.6-14.6); RBC Distribution Width SD 40.1 fl (35.1-43.9); Red Blood Count 3.66 M/mm3 (4.2-5.4); White Blood Count 5.8 K/mm3 (4.4-11.0)
== END | disposition home or self-care (01) ==
LOC: MTLAB 10:59
PROVIDERS: PCP Family Medicine; Referring Provider Family Medicine; Visit Provider Family Medicine
DX: Z51.81 Encounter for therapeutic drug level monitoring (principal); E55.9 Vitamin D deficiency, unspecified; E78.5 Hyperlipidemia, unspecified
CPT/HCPCS: 36415; 80053; 80061; 82306; 82607; 84443; 85025

== ENCOUNTER → 2025-08-26 | Outpatient (CLI) | payer MEDICARE, SELFPAY ==
--- NOTE | 2025-08-26 15:41 | RAD_ITS ---
PROCEDURE: L/S SPINE MIN 4 VIEWS 08/26/2025 REASON FOR EXAM: RULE OUT FRACTURE/ BACK PAIN TECHNIQUE: Procedure Code: RADSPLS Modality: DX Procedure: L/S SPINE MIN 4 VIEWS COMPARISON: None FINDINGS: Curvature: Mild degree of levoconvex scoliosis. Other findings: Disc space narrowing and spondylosis more pronounced at the L3- L4 levels. No evidence of listhesis. Other: RAD/L/S Spine Min 4 Views IMPRESSION: Mild levoconvex scoliosis. Disc space narrowing and spondylosis at the L3-L4 level. Reading Location: [id number]
--- NOTE | 2025-08-26 15:41 | RAD_ITS ---
PROCEDURE: RIBS UNI MIN 3V W/PA CHEST 08/26/2025 REASON FOR EXAM: CHEST PAIN TECHNIQUE: Procedure Code: RADRIB Modality: DX Procedure: RIBS UNI MIN 3V W/PA CHEST COMPARISON: None FINDINGS: Findings: Multiple views of the right wrist were obtained. No rib fracture seen. Other: The lungs are clear. Mild dextroconvex scoliosis of the thoracic spine. RAD/Ribs Uni Min 3V w/PA Chest IMPRESSION: No acute abnormality is seen. Reading Location: [id number]
--- NOTE | 2025-08-26 15:41 | RAD_ITS ---
PROCEDURE: THORACIC SPINE 3 VIEWS 08/26/2025 REASON FOR EXAM: RULE OUT FRACTURE/ PAIN TECHNIQUE: Procedure Code: RADSPT Modality: DX Procedure: THORACIC SPINE 3 VIEWS FINDINGS: No acute fracture or subluxation. Mild S shaped scoliosis of the thoracolumbar spine is noted with a dextro convex curvature of the thoracic spine, and levoconvex curvature of the lumbar spine. [id number] disc space narrowing and small marginal osteophytes are noted in the lower thoracic and visualized upper lumbar spine. RAD/Thoracic Spine 3 Views IMPRESSION: As above. Reading Location: [id number]
== END | disposition home or self-care (01) ==
LOC: MTRAD 15:27
PROVIDERS: PCP Family Medicine; Referring Provider Nurse Practitioner Family; Visit Provider Nurse Practitioner Family
DX: R07.89 Other chest pain (principal); M54.50 Low back pain, unspecified; M54.6 Pain in thoracic spine
CPT/HCPCS: 71101; 72072; 72110

== ENCOUNTER 2025-09-10 15:47 | Inpatient (IN) | payer MEDICARE, SELFPAY ==
[2025-09-10 15:48] VITALS: BP 140/78; PULSE 87; RESP 18; TEMP 36.1; O2SAT 97; BMI 22.8
--- NOTE | 2025-09-10 16:08 | CT_ITS ---
PROCEDURE: CTA CHEST W/WO CONTRAST; ABDOMEN/PELVIS W IV CONT ONLY 09/10/2025 REASON FOR EXAM: SOB, PAIN WITH DEEP INSPIRATION, RIGHT RIB PAIN; BACK PAIN, RUQ PAIN TECHNIQUE: Procedure Code: CTCTACHWW; CTABDPELIV Modality: CT Procedure: CTA CHEST W/WO CONTRAST; ABDOMEN/PELVIS W IV CONT ONLY Multiplanar Sagittal and Coronal images were obtained. 3D post processing was performed. CONTRAST: Isovue 370 VOLUME: 75 mL One or more dose reduction techniques were used (e.g., Automated exposure control, adjustment of the mA and/or kV according to patient size, use of iterative reconstruction technique). RADIATION DOSE SUMMARY: DLP: 655.53 mGycm COMPARISON: None. FINDINGS: PULMONARY VESSELS: No filling defects suspicious for pulmonary arterial emboli. Normal caliber main pulmonary trunk. No evidence of right heart strain. LUNGS/PLEURA: Clear. No pneumothorax or pleural effusion. Few small calcified granulomas. MEDIASTINUM: Unremarkable. No lymphadenopathy. Granulomatous calcifications. HEART: Normal in size. No pericardial effusion. No coronary artery calcification. AORTA: Normal in caliber. No aneurysm or dissection. Mild atherosclerotic calcifications. HEPATOBILIARY: Unremarkable. No biliary ductal dilatation. GENITOURINARY: No significant abnormality. No urolithiasis or hydroureteronephrosis. Partially calcified uterine fibroid at the dorsal aspect of the upper uterine segment measuring approximately 2.4 cm. GI TRACT: No evidence of obstruction or active inflammation. Normal appendix. PERITONEUM/RETROPERITONEUM: No ascites or free air. No lymphadenopathy. BONES: No acute fracture or dislocation. There is inflammatory fat infiltration/edema at the anterior right prevertebral soft tissues at the level of T10-T11, with cortical erosion along the right superior endplate of T11 vertebral body, most likely reflecting discitis-osteomyelitis. CT/Abdomen/Pelvis W IV Cont ONLY IMPRESSION: Findings suggestive of discitis-osteomyelitis at the T10-11 level. No acute fr acture. Clinical correlation recommended, and contrast-enhanced thoracic spine MRI may be helpful. No other acute findings in the chest, abdomen or pelvis. No pulmonary arterial emboli. Reading Location: [id number]
--- NOTE | 2025-09-10 16:08 | EKG12_ITS ---
Test Reason : Blood Pressure : */* mmHG Vent. Rate : 74 BPM Atrial Rate : 74 BPM P-R Int : 134 ms QRS Dur : 84 ms QT Int : 402 ms P-R-T Axes : 54 -61 80 degrees QTcB Int : 446 ms Normal sinus rhythm Left axis deviation Septal infarct (cited on or before 03-Jul-2025) Abnormal ECG Confirmed by MIKAELA BHANDARI, ANIKA ([id number]), medical transcription editor GAUDENCIO FONSECA ([id number]) on 09/12/2025 9:05:18 AM Referred By: Confirmed By: ANIKA AL MD
--- NOTE | 2025-09-10 16:17 | EX.ED.DYSGE1 ---
HPI History of Present Illness Chief Complaint: Back Narrative Narrative: Patient is a 70-year-old female who presents to the emergency department the chief complaint of back pain. She states that her back pain has been progressively worsening states that she had a fall in June and then again in August as she was trying to change the time on the wall clock. She states that she has been trying to take [id number]-qawqowy medications and some muscle relaxers she states that she saw a chiropractor as well who advised her that she needed x-rays. States that she had x-rays in the outpatient setting and was told that nothing was broken. States that last night she had severe pain and noted that she could not get any sleep. States that she is extremely painful today therefore she came here to be further evaluated. Patient denies any history of IV drug use. States that she has been urinating normally for self and having normal bowel movements. PFSH PFSH Home Medications ?Medication ?Instructions ?Recorded ?Last Taken ?Type cyclobenzaprine 10 mg tablet 10 mg PO TID PRN Muscle Spasm #20 07/03/25 Unknown Rx TABLETS ondansetron 4 mg disintegrating 4 mg PO Q8H PRN PRN Nausea #10 tabs 07/03/25 Unknown Rx tablet Allergy/AdvReac Type Severity Reaction Status Date / Time No Known Allergies Allergy Verified 09/10/25 15:48 Social History Smoking Status: Never smoker ROS ROS ED ROS Narrative Constitutional: Denies any fevers, chills, headaches Eyes: Denies double vision Cardiovascular: Denies chest pain Respiratory: Denies shortness of breath Abdomen: States that she has back pain and it is on her right side and her upper abdomen denies nausea vomiting diarrhea : Denies urinary symptoms Neurological: Denies any numbness, weakness, tingling Musculoskeletal: Complains of back pain as noted above Skin: Denies any rashes or lesions EXAM Physical Exam Narrative Exam Narrative: General: Patient was lying in bed did appear to be uncomfortable secondary to her pain Head: Atraumatic, normocephalic Eyes: PERRL bilaterally, EOMI bilaterally, no conjunctival injection noted Neck: Soft, supple, trachea Cardiovascular: Regular rate and rhythm Respiratory: Clear to auscultation bilaterally Abdomen: Soft, nondistended, tenderness to palpation in the right upper quadrant in the epigastric region no rebound or guarding on exam Extremities: +5/5 strength in the bilateral lower extremity Neurological: Patient following commands that she was at [facility] years 2024 Skin: Warm, dry, intact no rashes or lesions noted Const Vital Signs: 09/10/25 15:48 09/10/25 19:24 09/10/25 19:29 Temperature 97 F L 98.5 F Temperature Source Temporal Oral Pulse Rate 87 82 Respiratory Rate 18 18 Blood Pressure 140/78 H 122/108 H Blood Pressure Mean 98 112 Pulse Ox 97 100 Oxygen Delivery Method Room Air MDM MDM MDM Narrative Medical decision making narrative: Patient is a 70-year-old female who presented to the emergency department with a chief complaint of back pain and right sided pain. On the differential diagnosis includes but not limited to cholecystitis, choledocholithiasis, pancreatitis, pancreatic mass, pulmonary embolism, rib fracture, lumbar spine fracture. Once workup is obtained reviewed she will be reevaluated. Patient be given IV fluids, morphine, Zofran. Patient CBC reviewed and showed a white blood cell is 8.3, hemoglobin 12, platelet count was noted be 248. Patient sodium was normal 136, potassium of 3.7, creatinine was 0.90. Patient AST and ALT are 18 and 12 respectively. Patient's lipase normal at 28 urinalysis reviewed showed no evidence of infection. Patient's CTA of her chest reviewed showed findings suggestive of discitis osteomyelitis at T10-T11 no acute fracture and recommending MRI. No other acute findings in the chest abdomen or pelvis noted no pulmonary or emboli noted. Did add on ESR and CRP. Patient's ESR was noted be normal at 18 CRP elevated to 18.10. I spoke with Dr. Marquez who is recommend admission to medicine with cultures and holding off on IV antibiotics until MRI results as he is not convinced that this is discitis/osteomyelitis. Will discuss case with hospitalist for admission. Discussed case with hospitalist Dr. Elias who accept patient for admission. Patient notified is agreeable to plan all course concerns answered. She is requesting more pain medications she was given 0.5 mg IV of Dilaudid. Lab Data Labs: Laboratory Results - last 24 hr 09/10/25 09/10/25 16:17 16:20 WBC 8.3 RBC 3.70 L Hgb 12.0 Hct 33.2 L MCV 89.7 MCH 32.4 H MCHC 36.1 H RDW Std Deviation 41.6 RDW Coeff of Sylvie 12.6 Plt Count 248 MPV 9.7 Immature Gran % (Auto) 0.100 Neut % (Auto) 64.4 Lymph % (Auto) 23.7 [place] % (Auto) 8.4 Eos % (Auto) 2.8 Baso % (Auto) 0.6 Absolute Neuts (auto) 5.3 Absolute Lymphs (auto) 1.96 Nucleated RBC % 0 ESR 18 Sodium 136 Potassium 3.7 Chloride 100 Carbon Dioxide 21.7 Anion Gap 15 BUN 16 Creatinine 0.90 Estim Creat Clear Calc 42.64 L Est GFR (MDRD) Non-Af 68 BUN/Creatinine Ratio 17.8 Glucose 110 H Calcium 9.6 Total Bilirubin 0.32 AST 18 ALT 12 Alkaline Phosphatase 54 C-React Prot Ext Range 18.10 H Total Protein 7.1 Albumin 4.3 Globulin 2.8 Albumin/Globulin Ratio 1.5 Lipase 28 Urine Color Straw Urine Clarity Clear Urine pH 6.5 Ur Specific [place] 1.005 Urine Protein 15 H Urine Glucose (UA) Normal Urine Ketones Negative Urine Occult Blood Negative Urine Nitrite Negative Urine Bilirubin Negative Urine Urobilinogen Normal Ur Leukocyte Esterase Negative Urine RBC 0-5 SEEN Urine WBC 0-5 SEEN Ur Squamous Epith Cells 0 SEEN Urine Bacteria RARE Urine Mucus 0 SEEN Radiography Diagnostic Testing: Clinical Impression(s) from Imaging Studies Abdomen/Pelvis CT 09/10/25 16:08 IMPRESSION: Findings suggestive of discitis-osteomyelitis at the T10-11 level. No acute fracture. Clinical correlation recommended, and contrast-enhanced thoracic spine MRI may be helpful. No other acute findings in the chest, abdomen or pelvis. No pulmonary arterial emboli. Reading Location: [facility] Chest CTA 09/10/25 16:08 IMPRESSION: Findings suggestive of discitis-osteomyelitis at the T10-11 level. No acute fracture. Clinical correlation recommended, and contrast-enhanced thoracic spine MRI may be helpful. No other acute findings in the chest, abdomen or pelvis. No pulmonary arterial emboli. Reading Location: [facility] Discharge Plan Dx/Rx/DC Orders Clinical Impression: Back pain, Discitis Disposition Disposition: Acute Care Hospital [facility]
[2025-09-10] MEDS: 0.9% Normal Saline (1000mL) 1,000 ML 999 ML IV (16:24)
[2025-09-10 16:25] LABS: Hematocrit 33.2 % (37-47); Hemoglobin 12.0 g/dL (12.0-15.0); Immature Granulocytes Count 0.010 X10^3/uL (0.0-0.0); Mean Corp Hgb Conc 36.1 g/dL (32-36); Mean Corpuscular Volume 89.7 fL (81-99); Mean Platelet Vol. 9.7 fl (6.2-12.0); NRBC Flagged by Analyzer 0 % (0-5); Platelet Count 248 K/mm3 (150-450); RBC Distribution Width CV 12.6 % (11.6-14.6); RBC Distribution Width SD 41.6 fl (35.1-43.9); Red Blood Count 3.70 M/mm3 (4.2-5.4); White Blood Count 8.3 K/mm3 (4.4-11.0)
[2025-09-10 16:56] LABS: AST(SGOT) 18 U/L (<=31); Alanine Aminotransfer ALT/SGPT 12 U/L (<=34); Albumin, Serum 4.3 g/dL (3.4-4.8); Alkaline Phosphatase 54 U/L (35-104); Anion Gap 15 (5-15); BUN 16 mg/dL (4-19); BUN/Creat Ratio 17.8 RATIO (10-20); Calcium,Total 9.6 mg/dL (7.6-11.0); Carbon Dioxide 21.7 mmol/L (21.0-32.0); Chloride 100 mmol/L (98-108); Estimated Creatinine Clearance 42.64 ml/min (50-250); Globulin 2.8 g/dL (2.2-4.2); Glucose 110 mg/dL (70-99); Lipase 28 U/L (13-75); Potassium 3.7 mmol/L (3.3-5.1)
[2025-09-10 17:30] LABS: Mucous, Urine 0 SEEN /hpf (<or=2+); Squamous Epithelial Cells - UA 0 SEEN /hpf (5-10)
[2025-09-10 18:33] LABS: Color, Urine Straw (Yellow); Glucose, Dipstick Normal (Normal); Ketone-Dipstick Negative (Negative); Leukocyte Esterase-Dipstick Negative /ul (Negative); Nitrite-Dipstick Negative (Negative); Occult Blood-Urine Negative /ul (Negative); Protein-Dipstick 15 mg/dl (Negative); Specific Gravity, Urine 1.005 (1.002-1.030); Urine Bilirubin Dipstick Negative (Negative)
[2025-09-10 19:14] LABS: CRP 18.10 mg/L (0.0-3.0)
[2025-09-10 19:21] LABS: Red Blood Cells-Urine 0-5 SEEN /hpf (0-5)
[2025-09-10] MEDS: HYDROmorphone 0.5 MG/0.5 ML SYRINGE IV (19:22)
[2025-09-10 19:24] VITALS: BP 122/108; PULSE 82; RESP 18; O2SAT 100
[2025-09-10 19:29] VITALS: TEMP 36.9
[2025-09-10 19:47] VITALS: BP 122/108; PULSE 82; RESP 18; TEMP 36.9; O2SAT 100
--- NOTE | 2025-09-10 20:02 | HP.PCM.HOS_ITS ---
HPI - General General Date of Admission: 09/10/25 Date of Service: 09/10/25 Chief Complaint: Back pain since June 30, 2025 HPI Narrative RAMONE GONZALES, is a 70 F who presents came to ED with pain which for started on June 30 after she lifted and pulled heavy stuff. Her pain is mainly over right paravertebral/right subcostal region. She grabs her hand under her right anterior and posterior subcostal/lower costal region, gradual onset but worsened to 10/10 intensity. Denies fever and chills. She had fall in June and in August when she was trying to change the wall clock. She fell on the right side. No head injury. She also said she had crack in the skin at cleft around coccygeal region but that has healed now. She also had a rash in the spring 2023 which she mentioned singles over the left inframammary, anterior lateral region which has cleared. She denies lower back pain, sciatica in nature or radiation. No numbness tingling or paresthesia. Denies any major comorbidity. Not on any medication Social history: No smoking or IVDA use. Never been a smoker denies any significant alcohol use [facility] Home Medications ?Medication ?Instructions ?Recorded ?Last Taken ?Type NK 09/10/25 Unknown History Allergy/AdvReac Type Severity Reaction Status Date / Time No Known Allergies Allergy Verified 09/10/25 15:48 Social History Smoking Status: Never smoker ROS ROS Narrative Constitutional: Right lower costal/upper back pain. No fever. HEENT: Reports systems reviewed and no addt'l complaints, except as documented Respiratory/Chest: No acute shortness of breath or respiratory distress or wheezing. Denies chronic lung disease CVS: No chest pain. Denies chronic heart disease. Gastrointestinal: Denies coffee ground emesis, hematemesis or vomiting Genitourinary: Denies burning urination or new urinary tract symptoms. No acute urinary incontinence Musculoskeletal: No acute injury. Rest as described in HPI Neurologic: Denies seizure-like symptoms. No strokelike symptoms. skin: No ulcer. No rash Endocrinology: Reports systems reviewed and no addt'l complaints, except as documented Hematologic/Lymphatic: Reports systems reviewed and no addt'l complaints, except as documented Rest 14 ROS are negative except as mentioned in HPI Vital Signs Vital Signs Vital Signs: 09/10/25 15:48 09/10/25 19:24 09/10/25 19:29 Temperature 97 F L 98.5 F Temperature Source Temporal Oral Pulse Rate 87 82 Respiratory Rate 18 18 Blood Pressure 140/78 H 122/108 H Blood Pressure Mean 98 112 Pulse Ox 97 100 Oxygen Delivery Method Room Air 09/10/25 19:47 Temperature 98.5 F Temperature Source Pulse Rate 82 Respiratory Rate 18 Blood Pressure 122/108 H Blood Pressure Mean 112 Pulse Ox 100 Oxygen Delivery Method Weight Weight: 120 lb 14.4 oz Body Mass Index (BMI) 22.8 Physical Exam Narrative General: Alert, Oriented x3, Cooperative HEENT: Atraumatic, PERRLA, EOMI, Normocephalic. Oral: No Gingival or Mucosal Lesions/ Ulcerations Neck: Supple, No JVD, Negative Carotid Bruits Chest wall/Lungs: Air entry equal in bilateral lung bases. No crepitation/rhonchi Cardiovascular: Regular rate and rhythm, Normal S1,S2, No M/G/R Abdomen: Bowel Sounds Present, Soft, Non Tender, Non-Distended : No dysuria. No renal angle tenderness. No suprapubic tenderness. Extremities: No edema, Capillary Refill Less than 3 Seconds Skin: No rashes, No breakdown Musculoskeletal: No Tenderness to Palpation of Joints or Extremities. No trauma. ROM intact in hip and knee joints Spine: Tenderness present over right 8-10 lower costal ribs in posterior lateral region. Muscle spasm present Neurological: Cranial nerves II-XII grossly intact, DTR 2+/4. No acute focal neurological deficit. Psych/Mental Status: Normal Affect, Appropriate. Results Lab / Micro Data 09/10/25 16:17 09/10/25 16:17 Labs: Laboratory Results - last 24 hr 09/10/25 16:17: WBC 8.3, RBC 3.70 L, Hgb 12.0, Hct 33.2 L, MCV 89.7, MCH 32.4 H, MCHC 36.1 H, RDW Std Deviation 41.6, RDW Coeff of Sylvie 12.6, Plt Count 248, MPV 9.7, Immature Gran % (Auto) 0.100, Neut % (Auto) 64.4, Lymph % (Auto) 23.7, [place] % (Auto) 8.4, Eos % (Auto) 2.8, Baso % (Auto) 0.6, Absolute Neuts (auto) 5.3, Absolute Lymphs (auto) 1.96, Nucleated RBC % 0, ESR 18, Sodium 136, Potassium 3.7, Chloride 100, Carbon Dioxide 21.7, Anion Gap 15, BUN 16, Creatinine 0.90, E stim Creat Clear Calc 42.64 L, Est GFR (MDRD) Non-Af 68, BUN/Creatinine Ratio 17.8, Glucose 110 H, Calcium 9.6, Total Bilirubin 0.32, AST 18, ALT 12, Alkaline Phosphatase 54, C-React Prot Ext Range 18.10 H, Total Protein 7.1, Albumin 4.3, Globulin 2.8, Albumin/Globulin Ratio 1.5, Lipase 28 09/10/25 16:20: Urine Color Straw, Urine Clarity Clear, Urine pH 6.5, Ur Specific [place] 1.005, Urine Protein 15 H, Urine Glucose (UA) Normal, Urine Ketones Negative, Urine Occult Blood Negative, Urine Nitrite Negative, Urine Bilirubin Negative, Urine Urobilinogen Normal, Ur Leukocyte Esterase Negative, Urine RBC 0-5 SEEN, Urine WBC 0-5 SEEN, Ur Squamous Epith Cells 0 SEEN, Urine Bacteria RARE, Urine Mucus 0 SEEN Imaging Radiology Impression Abdomen/Pelvis CT 09/10/25 16:08 IMPRESSION: Findings suggestive of discitis-osteomyelitis at the T10-11 level. No acute fracture. Clinical correlation recommended, and contrast-enhanced thoracic spine MRI may be helpful. No other acute findings in the chest, abdomen or pelvis. No pulmonary arterial emboli. Reading Location: [facility] Chest CTA 09/10/25 16:08 IMPRESSION: Findings suggestive of discitis-osteomyelitis at the T10-11 level. No acute fracture. Clinical correlation recommended, and contrast-enhanced thoracic spine MRI may be helpful. No other acute findings in the chest, abdomen or pelvis. No pulmonary arterial emboli. Reading Location: [facility] Assessment & Plan Assessment/Plan (1) Back pain: PLAN: Plan This is a 76-year-old female being admitted for gradual worsening of back pain since June 2025. 1. Subacute right lower costal/subcostal muscle spasm with possible costochondritis, ruled out discitis/osteomyelitis: The patient is being admitted to [facility] floor. CT abdomen/pelvis with IV contrast was done. Report reviewed no acute fracture or dislocation but inflammatory fat infiltration/edema at the anterior right prevertebral soft tissue at level of T10-11 with cortical erosion along right superior endplate of T11 vertebral body. Although mention discitis/osteomyelitis and CT report but spine surgeon Dr. Sharad Sibley does not agree. From history it mainly seems subchronic muscle spasm/costochondritis. ED physician discussed with Dr. Sharad Sibley and wants to hold antibiotic. Blood culture ordered. CRP and ESR elevated. Previous thoracic spine x-ray on 08/26 reported mild scoliosis is separate of thoracolumbar spine with dextroconvex curvature of thoracic spine and levoconvex curvature of lumbar spine suggestive of a spondylolysis. Patient does not have signs symptoms of involvement of spinal nerves suggestive of cauda equina. Pain control with Tylenol, oxycodone and Dilaudid and muscle relaxant. PT and OT ordered Spine surgeon Dr. Sharad Sibley consult. MRI thoracic spine ordered 2. DVT prophylaxis moderate risk: Lovenox 40 mg subcu daily ordered. Living will/advanced directive/end of life care: Patient does have living will or advanced directive. Her is power of traffic law attorney for health after discussion of benefits/risks procedures involved with full code, DNR CC arrest and DNR CC, the patient opted for full code. Patient does want artificial life support including intubation, tube feed, ventilator and/chest compression, central venous catheter, vasopressor and DC shock if needed Total time spent in [id number] encounter in discussion of advanced directive 17 minutes. Laboratory Results 09/10/25 16:17: WBC 8.3, RBC 3.70 L, Hgb 12.0, Hct 33.2 L, MCV 89.7, MCH 32.4 H, MCHC 36.1 H, RDW Std Deviation 41.6, RDW Coeff of Sylvie 12.6, Plt Count 248, MPV 9.7, Immature Gran % (Auto) 0.100, Neut % (Auto) 64.4, Lymph % (Auto) 23.7, [place] % (Auto) 8.4, Eos % (Auto) 2.8, Baso % (Auto) 0.6, Absolute Neuts (auto) 5.3, Absolute Lymphs (auto) 1.96, Nucleated RBC % 0, ESR 18, Sodium 136, Potassium 3.7, Chloride 100, Carbon Dioxide 21.7, Anion Gap 15, BUN 16, Creatinine 0.90, Estim Creat Clear Calc 42.64 L, Est GFR (MDRD) Non-Af 68, BUN/Creatinine Ratio 17.8, Glucose 110 H, Calcium 9.6, Total Bilirubin 0.32, AST 18, ALT 12, Alkaline Phosphatase 54, C-React Prot Ext Range 18.10 H, Total Protein 7.1, Albumin 4.3, Globulin 2.8, Albumin/Globulin Ratio 1.5, Lipase 28 09/10/25 16:20: Urine Color Straw, Urine Clarity Clear, Urine pH 6.5, Ur Specific [place] 1.005, Urine Protein 15 H, Urine Glucose (UA) Normal, Urine Ketones Negative, Urine Occult Blood Negative, Urine Nitrite Negative, Urine Bilirubin Negative, Urine Urobilinogen Normal, Ur Leukocyte Esterase Negative, Urine RBC 0-5 SEEN, Urine WBC 0-5 SEEN, Ur Squamous Epith Cells 0 SEEN, Urine Bacteria RARE, Urine Mucus 0 SEEN Clinical Impression(s) from Imaging Studies Abdomen/Pelvis CT 09/10/25 16:08 IMPRESSION: Findings suggestive of discitis-osteomyelitis at the T10-11 level. No acute fracture. Clinical correlation recommended, and contrast-enhanced thoracic spine MRI may be helpful. No other acute findings in the chest, abdomen or pelvis. No pulmonary arterial emboli. Reading Location: [id number] Chest CTA 09/10/25 16:08 IMPRESSION: Findings suggestive of discitis-osteomyelitis at the T10-11 level. No acute fracture. Clinical correlation recommended, and contrast-enhanced thoracic spine MRI may be helpful. No other acute findings in the chest, abdomen or pelvis. No pulmonary arterial emboli. Reading Location: [facility] Charges/Coding Visit Charges Inpatient E&M: 48579 Init Hosp L3 Procedures Hospitalists Procedures: 70267 Advncd Care Plan 30 Min
--- OUTSIDE RECORDS SUMMARY | 2025-09-10 20:25 | XMS RPT_ITS | CCD ---
Author Organization [facility] Care Team Providers Care Topper Packer Name Role Phone Berta Mar DO Primary Care Provider MALYS, BERTA A Primary Care Unavailable MALYS BERTA Poly Attending Unavailable DAISYYSSHIVANIA Poly Referring Unavailable MALYS, BERTA A Primary Care Unavailable KEE MARRERO II Attending Unavailabl e MALYS, BERTA A Primary Care Unavailable LAKSHMI SANTIAGO Attending Unavailable SELF Referring Unavailable Dr. Berta Mar DO Primary Care Physician Dr. Dennise Mobley DO Attending Physician Dr. Dennise Mobley DO Emergency Department Physi alfredo Malys, Berta Primary Care Unavailable Dennise Mobley Attending Unavailable MalysBerta Attending Unavailable Malys, Berta Referring Unavailable Malys, Berta Primary Care Unavailable Allergies Allergy Classification Reported Allergen(s) Allergy Type Date of Onset Reaction(s) Facility Apples (1 source) Apples Food Allergy [address] [facility] Work Phone: bacitracin / neomycin / polymyxin b (1 source) bacitracin / neomycin / polymyxin b Drug Allergy 6 [facility] (6 sources) Apples; Translations: [APPLES] Propensity to adverse reactions to food [address] [facility] Work Phone: (6 sources) bacitracin / neomycin / polymyxin b; Translations: [NEOMYCIN-BACITRA BRYANNA-POLYMYXIN] Drug Allergy 6 [facility] (6 sources) environmental [Other] Propensity to adverse reactions [address] [place] [address] Work Phone: (1 source) OTHER; Translations: [OTHER] Propensity to adverse reactions (disorder) 6 [facility] Repository Medications Current Medications Medication Drug Class(es) [...] ED, Starting on Mon09/18/24 at 1400, Until Mon09/19/24 at 0159, Administer for applanation tonometry. In the event of a Fluress shortage, administer [place]-Fluor 1 drop into both eyes as directed for applanation tonometry Start: 09-06-2023 End: 09-07-2023 fluorescein-benoxinate 0.3-0 .4 % 1 Drop (FLURESS) cholecalciferol, vitamin D3, (VITAMIN D3 ORAL) (6 sources) cholecalciferol, vitamin D3, (VITAMIN D3 ORAL) Take by mouth. Active cholecalciferol, vitamin D3, (VITAMIN D3 ORAL) Take by mouth. 0 Active Comment on above: Take by mouth. cyclobenzaprine hydrochloride 10 mg oral tablet (1 source) Muscle Relaxant Start: take 1 tablet by mouth three times daily as needed for muscle spasms ondansetron 4 mg disintegrating oral tablet (1 source) Serotonin-3 Receptor Antagonist Start: take 1 tablet by mouth every eight hours as needed for nausea phenylephrine hydrochloride 25 mg/ml ophthalmic solution (1 source) alpha-1 Adrenergic Agonist Start: 023 End: PHENYLephrine 2.5 % 1 Drop (AK-DILATE, MILTON-SYNEPHRINE) tropicamide 10 mg/ml ophthalmic solution (3 sources) Anticholinergic Start: End: tropicamide 1 % 1 Drop (MYDRIACYL) Start: 09-18-2024 End: 09-19-2024 1 Drop, BOTH EYES, DIRECT ED, Starting on Mon09/18/24 at 1400, Until Mon09/19/24 at 0159, Administer for dilation Start: 09-06-2023 [...] of age-related cataract, bilateral] Onset: 07-17-2018 Chronic Conditions associated with dizziness or vertigo (1 source) Lightheadedness; Translations: [Dizziness and giddiness] 07-03-2025 Episodic Disorders of lipid metabolism (6 sources) Hyperlipidemia; Translations: [Hyperlipidemia, unspecified] Onset: 09-08-2011 09-08-2011 Chronic Fluid and electrolyte disorders (1 source) Dehydration; Translations: [Dehydration] 07-03-2025 Episodic Glaucoma (12 sources) Preglaucoma, unspecified, bilateral; Translations: [Preglaucoma, unspecified] Onset: 07-17-2018 Chronic Hemorrhoids (6 sources) Hemorrhoids; Translations: [Unspecified hemorrhoids] 12-04-2007 Episodic Occlusion or stenosis of precerebral arteries (6 sources) Carotid artery occlusion; Translations: [Occlusion and stenosis of unspecified carotid artery] Onset: 12-24-2007 06-04-2010 Chronic Other aftercare (1 source) Encounter for therapeutic drug level monitoring; Translations: [Encounter for therapeutic drug level monitoring] Onset: 08-04-2025 Episodic Other eye disorders (2 sources) Excess skin of eyelid; Translations: [Dermatochalasis of right upper eyelid] Onset: 07-17-2018 Episodic Other upper respiratory disease (6 sources) Allergic rhinitis; Translations: [Allergic rhinitis, unspecified] Onset: 04-27-2006 06-04-2010 Chronic Spondylosis; intervertebral disc disorders; other back problems (8 sources) Neck pain; Translations: [Cervicalgia] Onset: 12-17-2010 10-04-2021 Episodic Past or Other Problems Problem Classification Problem Date Documented Date Episodic/Chronic Abdominal pain (6 sources) Epigastric pain; Translations: [Epigastric pain] Onset: 07-04-2012 07-04-2012 Episodic Deficiency and other anemia (6 sources) Anemia; Translations: [Anemia, unspecified] Onset: 09-08-2011 09-08-2011 Episodic Other eye disorders (7 sources) Dermatochalasis of right upper eyelid; Translations: [Dermatochalasis] Onset: 07-17-2018 09-06-2023 Episodic Syncope (4 sources) Syncope and collapse; Translations: [Syncope and collapse] Onset: 12-17-2010 Resolved: 07-12-2016 10-04-2021 Episodic Results Test Name Value Interpretation Reference Range Facility CBC W/Diff, Automatedon 10-0 Absolute Lymph 1.46 X10 3/uL Normal 0.83-4.51 [facility] Comment on above: Performed By: #### L 506.1001, L100.0100, L501.9520, L500.4100, L503.0106, L500.4050 #### [facility] [address] [place], [place], [id number] Absolute Neut 3.5 X10 3/uL Normal 2.0-7.7 [facility] Comment on above: Performed By: #### L 506.1001, L100.0100, L501.9520, L500.4100, L503.0106, L500.4050 #### [facility] [address] [place], [address] Basophils/100 WBC (Bld) 0.5 % Normal 0-1 [facility] Comment on above: Performed By: #### L 506.1001, L100.0100, L501.9520, L500.4100, L503.0106, L500.4050 #### [facility] [address] [place], [address] Eosinophils/100 WBC (Bld) 5.4 % High 0-5 [facility] Comment on above: Performed By: #### L 506.1001, L100.0100, L501.9520, L500.4100, L503.0106, L500.4050 #### [facility] [address] [place], [address] Erythrocyte distribution width (RBC) [Ratio] 11.9 % Normal 11.6-14.6 [facility] Comment on above: Performed By: #### L 506.1001, L100.0100, L501.9520, L500.4100, L503.0106, L500.4050 #### [facility] [address] [place], [address] Hematocrit (Bld) [Volume fraction] 33.7 % Low 37-47 [facility] Comment on above: Performed By: #### L 506.1001, L100.0100, L501.9520, L500.4100, L503.0106, L500.4050 #### [facility] [address] [place], [address] Hemoglobin (Bld) [Mass/Vol] 11.9 g/dL Low 12.0-15.0 [facility] Comment on above: Performed By: #### L 506.1001, L100.0100, L501.9520, L500.4100, L503.0106, L500.4050 #### [facility] [address] [place], [address] IG% 0.200 Normal 0.0-0.9 [facility] Comment on above: Result Comment: IG% - Immature Granulocytes (promyelocytes, myelocytes and metamyelocytes) > 1% indicates that a LEFT SHIFT is Present. Performed By: #### L 506.1001, L100.0100, L501.9520, L500.4100, L503.0106, L500.4050 #### [facility] [address] [place], [address] Lymphocytes/100 WBC (Bld) 25.3 % Normal 19-41 [facility] Comment on above: Performed By: #### L 506.1001, L100.0100, L501.9520, L500.4100, L503.0106, L500.4050 #### [facility] [address] [place], [address] MCH (RBC) [Entitic mass] 32.5 pg High 27.0-32.0 [facility] Comment on above: Performed By: #### L 506.1001, L100.0100, L501.9520, L500.4100, L503.0106, L500.4050 #### [facility] [address] [place], [address] MCHC (RBC) [Mass/Vol] 35.3 g/dL Normal 32-36 [facility] Comment on above: Performed By: #### L 506.1001, L100.0100, L501.9520, L500.4100, L503.0106, L500.4050 #### [facility] [address] [place], [address] MCV (RBC) [Entitic vol] 92.1 fL Normal 81-99 [facility] Comment on above: Performed By: #### L 506.1001, L100.0100, L501.9520, L500.4100, L503.0106, L500.4050 #### [facility] [address] [place], [address] Monocytes/100 WBC (Bld) 8.3 % Normal 0-10 [facility] Comment on above: Performed By: #### L 506.1001, L100.0100, L501.9520, L500.4100, L503.0106, L500.4050 #### [facility] [address] [place], [address] Neutrophils/100 WBC (Bld) 60.3 % Normal 47-70 [facility] Comment on above: Performed By: #### L 506.1001, L100.0100, L501.9520, L500.4100, L503.0106, L500.4050 #### [facility] [address] [place], [address] Nucleated RBC (Bld) [#/Vol] 0 10*3/uL Normal 0-5 [facility] Comment on above: Performed By: #### L 506.1001, L100.0100, L501.9520, L500.4100, L503.0106, L500.4050 #### [facility] [address] [place], [address] Platelet mean volume (Bld) [Entitic vol] 10.0 fL Normal 6.2-12.0 [facility] Comment on above: Performed By: #### L 506.1001, L100.0100, L501.9520, L500.4100, L503.0106, L500.4050 #### [facility] [address] [place], [address] Platelets (Bld) [#/Vol] 327 10*3/uL Normal 150-450 [facility] Comment on above: Performed By: #### L 506.1001, L100.0100, L501.9520, L500.4100, L503.0106, L500.4050 #### [facility] [address] [place], [address] RBC (Bld) [#/Vol] 3.66 10*6/uL Low 4.2-5.4 [facility] Comment on above: Performed By: #### L 506.1001, L100.0100, L501.9520, L500.4100, L503.0106, L500.4050 #### [facility] [address] [place], [address] RDW SD 40.1 fl Normal 35.1-43.9 [facility] Comment on above: Performed By: #### L 506.1001, L100.0100, L501.9520, L500.4100, L503.0106, L500.4050 #### [facility] [address] [place], [address] WBC (Bld) [#/Vol] 5.8 10*3/uL Normal 4.4-11.0 [facility] Comment on above: Performed By: #### L 506.1001, L100.0100, L501.9520, L500.4100, L503.0106, L500.4050 #### [facility] [address] [place], [address] Comprehensive Metabolic Prof ilon 07-10-2025 Albumin [Mass/Vol] 4.4 g/dL Normal 3.4-4.8 [facility] Comment on above: Performed By: #### L 506.1001, L100.0100, L501.9520, L500.4100, L503.0106, L500.4050 #### [facility] [address] [place], [address] Albumin/Globulin [Mass ratio] 1.4 {ratio} Normal 0.9-2.4 [facility] Comment on above: Performed By: #### L 506.1001, L100.0100, L501.9520, L500.4100, L503.0106, L500.4050 #### [facility] [address] [place], [address] ALK PHOS 45 U/L Normal 35-104 [facility] Comment on above: Performed By: #### L 506.1001, L100.0100, L501.9520, L500.4100, L503.0106, L500.4050 #### [facility] [address] [place], [address] ALT [Catalytic activity/Vol] 16 U/L Normal <=34 [facility] Comment on above: Performed By: #### L 506.1001, L100.0100, L501.9520, L500.4100, L503.0106, L500.4050 #### [facility] [address] [place], [address] AST [Catalytic activity/Vol] 20 U/L Normal <=31 [facility] Comment on above: Performed By: #### L 506.1001, L100.0100, L501.9520, L500.4100, L503.0106, L500.4050 #### [facility] [address] [place], [address] Bilirubin [Mass/Vol] 0.36 mg/dL Normal 0.00-1.30 [facility] Comment on above: Performed By: #### L 506.1001, L100.0100, L501.9520, L500.4100, L503.0106, L500.4050 #### [facility] [address] [place], [address] BUN/CRE 13.2 RATIO Normal 10-20 [facility] Comment on above: Performed By: #### L 506.1001, L100.0100, L501.9520, L500.4100, L503.0106, L500.4050 #### [facility] [address] [place], [address] Calcium [Mass/Vol] 9.9 mg/dL Normal 7.6-11.0 [facility] Comment on above: Performed By: #### L 506.1001, L100.0100, L501.9520, L500.4100, L503.0106, L500.4050 #### [facility] [address] [place], [address] Chloride [Moles/Vol] 101 mmol/L Normal 98-108 [facility] Comment on above: Performed By: #### L 506.1001, L100.0100, L501.9520, L500.4100, L503.0106, L500.4050 #### [facility] [address] [place], [address] CO2 [Moles/Vol] 22.1 mmol/L Normal 21.0-32.0 [facility] Comment on above: Performed By: #### L 506.1001, L100.0100, L501.9520, L500.4100, L503.0106, L500.4050 #### [facility] [address] [place], [address] Creatinine [Mass/Vol] 0.82 mg/dL Normal 0.70-1.20 [facility] Comment on above: Performed By: #### L 506.1001, L100.0100, L501.9520, L500.4100, L503.0106, L500.4050 #### [facility] [address] [place], [address] GAP 15 Normal 5-15 [facility] Comment on above: Performed By: #### L 506.1001, L100.0100, L501.9520, L500.4100, L503.0106, L500.4050 #### [facility] [address] [place], [address] GFR/1.73 sq M.predicted among non-blacks MDRD (S/P/Bld) [Vol rate/Area] 76 mL/min/{1.73_m2} Normal >60 [facility] Comment on above: Result Comment: mL/m in/1.73m2 CKD-EPI Creatinine Equation (2020) Performed By: #### L 506.1001, L100.0100, L501.9520, L500.4100, L503.0106, L500.4050 #### [facility] [address] [place], [address] Globulin (S) [Mass/Vol] 3.1 g/dL Normal 2.2-4.2 [facility] Comment on above: Performed By: #### L 506.1001, L100.0100, L501.9520, L500.4100, L503.0106, L500.4050 #### [facility] [address] [place], [address] Glucose [Mass/Vol] 93 mg/dL Normal 70-99 [facility] Comment on above: Performed By: #### L 506.1001, L100.0100, L501.9520, L500.4100, L503.0106, L500.4050 #### [facility] [address] [place], [address] Potassium [Moles/Vol] 4.0 mmol/L Normal 3.3-5.1 [facility] Comment on above: Performed By: #### L 506.1001, L100.0100, L501.9520, L500.4100, L503.0106, L500.4050 #### [facility] [address] [place], [address] Sodium [Moles/Vol] 138 mmol/L Normal 133-145 [facility] Comment on above: Performed By: #### L 506.1001, L100.0100, L501.9520, L500.4100, L503.0106, L500.4050 #### [facility] [address] [place], [address] T PROT 7.4 g/dL Normal 5.9-8.4 [facility] Comment on above: Performed By: #### L 506.1001, L100.0100, L501.9520, L500.4100, L503.0106, L500.4050 #### [facility] [address] [place], [address] Urea nitrogen [Mass/Vol] 11 mg/dL Normal 4-19 [facility] Comment on above: Performed By: #### L 506.1001, L100.0100, L501.9520, L500.4100, L503.0106, L500.4050 #### [facility] [address] [place], [address] Lipid Profileon 07-10-2025 CHOL:HDL 4.41 Normal [facility] Comment on above: Performed By: #### L 506.1001, L100.0100, L501.9520, L500.4100, L503.0106, L500.4050 #### [facility] [address] [place], [address] Cholesterol [Mass/Vol] 230 mg/dL High <=200 [facility] Comment on above: Result Comment: Chol esterol level, Desirable <200 mg/dL Borderline high cholesterol 200-239 mg/dL High cholesterol >=240 mg/dL Recommendations of the NCEP Adult Treatment Panel for the following risk-cutoff thresholds for the [place] population. Performed By: #### L 506.1001, L100.0100, L501.9520, L500.4100, L503.0106, L500.4050 #### [facility] [address] [place], [address] Cholesterol in HDL [Mass/Vol] 52 mg/dL Normal [facility] Comment on above: Result Comment: Lesley onal Cholesterol Education Program (NCEP) guidelines: <40 mg/dL: Low HDL-cholesterol (major risk factor for CHD) >= 60 mg/dL: High HDL-cholesterol (negative risk factor for CHD) HDL-cholesterol is affected by a number of factors, e.g. smoking, exercise, hormones, sex and age. Performed By: #### L 506.1001, L100.0100, L501.9520, L500.4100, L503.0106, L500.4050 #### [facility] [address] [place], [address] Cholesterol in LDL [Mass/Vol] 157 mg/dL Normal [facility] Comment on above: Result Comment: Bord hqpmkh=853-255 mg/dL Higher Ekbw=274 mg/dL or greater Friedwald Equation for LDL-C Performed By: #### L 506.1001, L100.0100, L501.9520, L500.4100, L503.0106, L500.4050 #### [facility] [address] [place], [address] Cholesterol in VLDL [Mass/Vol] 20 mg/dL Normal 5-40 [facility] Comment on above: Performed By: #### L 506.1001, L100.0100, L501.9520, L500.4100, L503.0106, L500.4050 #### [facility] [address] [place], [address] Triglyceride [Mass/Vol] 102 mg/dL Normal [facility] Comment on above: Result Comment: The drugs N-Acetylcysteine and Metamizole may falsely depress this assay. Normal range: <150 mg/dL Borderline High: 150-199 mg/dL High: 200-499 mg/dL Very High: >500 mg/dL Performed By: #### L 506.1001, L100.0100, L501.9520, L500.4100, L503.0106, L500.4050 #### [facility] [address] [place], [address] Thyroid Stim Hormone (TSH)on 07-10-2025 TSH 1.810 uIU/mL Normal 0.300-4.200 [facility] Comment on above: Performed By: #### L 506.1001, L100.0100, L501.9520, L500.4100, L503.0106, L500.4050 #### [facility] [address] [place], [address] Vitamin B12on 07-10-2025 Cobalamin (Vitamin B12) [Mass/Vol] 1642 pg/mL High 180-914 [facility] Comment on above: Performed By: #### L 506.1001, L100.0100, L501.9520, L500.4100, L503.0106, L500.4050 #### [facility] [address] [place], [address] Vitamin D,25 Hydroxyon 07-10 Vitamin D 25-OH 72.9 ng/mL Normal 30-100 [facility] Comment on above: Result Comment: Sabina min D Status Deficiency: <20 ng/mL (50nmol/L) Insufficiency: 20-30 ng/mL (50-75 nmol/L) Sufficiency: 30-100 ng/mL (75-250 nmol/L) Toxicity: >100 ng/mL (>250 nmol/L) Performed By: #### L 506.1001, L100.0100, L501.9520, L500.4100, L503.0106, L500.4050 #### [facility] [address] [place], [address] 12 Lead EKGon 07-03-2025 12 Lead EKG [facility] [address] [place] [place] [address] 12 Lead EKG 07/03/25 0911 MR#: [id number] Acct: [id number] Name: RAMONE GONZALES Rep #: [id number] : 1955 70 From: Enrico Cardona MD Attending Dr: Status: DEP ER Ordering Dr: Dennise Mobley DO Date: 07/03/25 Location: ED Sex: F C Admitted: Test Reason : BACK PAIN Blood Pressure : */* mmHG Vent. Rate : 95 BPM Atrial Rate : 95 BPM P-R Int : 132 ms QRS Dur : 86 ms QT Int : 342 ms P-R-T Axes : 56 -60 102 degrees QTcB Int : 429 ms Sinus rhythm with Premature atrial complexes Left axis deviation Septal infarct , age undetermined Abnormal ECG Confirmed by Enrico Cardona ([id number]), publications editor AQUILINO MARTINEZ ([id number]) on 07/04/2025 5:49:19 AM Referred By: Confirmed By: Enrico Cardona 07/04/25 0549 Date Enrico Cardona MD CC: Dr. Dennise Mobley DO; Dr. Berta Mar DO Signed Normal [facility] Absolute lymphocyte countOrd ered By: Dennise Mobley on 07-03-2025 Lymphocytes Auto (Unsp spec) [#/Vol] 0.76 10*3/uL Low 0.83-4.51 [facility] Absolute neutrophil countOrd ered By: Dennise Mobley on 07-03-2025 Neutrophils (Bld) [#/Vol] 5.0 10*3/uL 2.0-7.7 [facility] Anion gap in Serum or Plasma Ordered By: Dennise Mobley on 07-03-2025 Anion gap [Moles/Vol] 18 mmol/L High 5-15 [facility] Automated lymphocyte count a s percentage of total leukocytesOrdered By: Dennise Mobley on 07-03-2025 Lymphocytes/100 WBC Auto (Unsp spec) 11.9 % Low 19-41 [facility] BUN/creatinine ratioOrdered By: Dennise Mobley on 07-03-2025 Urea nitrogen/Creatinine [Mass ratio] 9.4 mg/mg Low 10-20 [facility] Basophil percentageOrdered B y: Dennise Mobley on 07-03-2025 Basophils/100 WBC (Bld) 0.5 % 0-1 [facility] Bilirubin Test strip Ql (U)O rdered By: Denniseranjeet Mobley on 07-03-2025 Bilirubin Ql (U) Negative Negative [facility] Bilirubin, totalOrdered By: Denniseranjeet Mobley on 07-03-2025 Bilirubin [Mass/Vol] 0.45 mg/dL 0.00-1.30 [facility] CBC W/Diff, Automatedon 06-10 Absolute Lymph 0.76 X10 3/uL Low 0.83-4.51 [facility] Comment on above: Performed By: #### L 500.4050, L501.3620, L100.0100, L501.2450 #### [facility] [address] [place], [address] Absolute Neut 5.0 X10 3/uL Normal 2.0-7.7 [facility] Comment on above: Performed By: #### L 500.4050, L501.3620, L100.0100, L501.2450 #### [facility] [address] [place], [address] Basophils/100 WBC (Bld) 0.5 % Normal 0-1 [facility] Comment on above: Performed By: #### L 500.4050, L501.3620, L100.0100, L501.2450 #### [facility] [address] [place], [address] Eosinophils/100 WBC (Bld) 0.2 % Normal 0-5 [facility] Comment on above: Performed By: #### L 500.4050, L501.3620, L100.0100, L501.2450 #### [facility] [address] [place], [address] Erythrocyte distribution width (RBC) [Ratio] 12.1 % Normal 11.6-14.6 [facility] Comment on above: Performed By: #### L 500.4050, L501.3620, L100.0100, L501.2450 #### [facility] [address] [place], [address] Hematocrit (Bld) [Volume fraction] 34.7 % Low 37-47 [facility] Comment on above: Performed By: #### L 500.4050, L501.3620, L100.0100, L501.2450 #### [facility] [address] [place], [address] Hemoglobin (Bld) [Mass/Vol] 12.2 g/dL Normal 12.0-15.0 [facility] Comment on above: Performed By: #### L 500.4050, L501.3620, L100.0100, L501.2450 #### [facility] [address] [place], [address] IG% 0.300 Normal 0.0-0.9 [facility] Comment on above: Result Comment: IG% - Immature Granulocytes (promyelocytes, myelocytes and metamyelocytes) > 1% indicates that a LEFT SHIFT is Present. Performed By: #### L 500.4050, L501.3620, L100.0100, L501.2450 #### [facility] [address] [place], [address] Lymphocytes/100 WBC (Bld) 11.9 % Low 19-41 [facility] Comment on above: Performed By: #### L 500.4050, L501.3620, L100.0100, L501.2450 #### [facility] [address] [place], [address] MCH (RBC) [Entitic mass] 32.1 pg High 27.0-32.0 [facility] Comment on above: Performed By: #### L 500.4050, L501.3620, L100.0100, L501.2450 #### [facility] [address] [place], [place], [address] MCHC (RBC) [Mass/Vol] 35.2 g/dL Normal 32-36 [facility] Comment on above: Performed By: #### L 500.4050, L501.3620, L100.0100, L501.2450 #### [facility] [address] [place], [address] MCV (RBC) [Entitic vol] 91.3 fL Normal 81-99 [facility] Comment on above: Performed By: #### L 500.4050, L501.3620, L100.0100, L501.2450 #### [facility] [address] [place], [address] Monocytes/100 WBC (Bld) 9.4 % Normal 0-10 [facility] Comment on above: Performed By: #### L 500.4050, L501.3620, L100.0100, L501.2450 #### [facility] [address] [place], [address] Neutrophils/100 WBC (Bld) 77.7 % High 47-70 [facility] Comment on above: Performed By: #### L 500.4050, L501.3620, L100.0100, L501.2450 #### [facility] [address] [place], [address] Nucleated RBC (Bld) [#/Vol] 0 10*3/uL Normal 0-5 [facility] Comment on above: Performed By: #### L 500.4050, L501.3620, L100.0100, L501.2450 #### [facility] [address] [place], [address] Platelet mean volume (Bld) [Entitic vol] 10.1 fL Normal 6.2-12.0 [facility] Comment on above: Performed By: #### L 500.4050, L501.3620, L100.0100, L501.2450 #### [facility] [address] [place], [address] Platelets (Bld) [#/Vol] 187 10*3/uL Normal 150-450 [facility] Comment on above: Performed By: #### L 500.4050, L501.3620, L100.0100, L501.2450 #### [facility] [address] [place], [address] RBC (Bld) [#/Vol] 3.80 10*6/uL Low 4.2-5.4 [facility] Comment on above: Performed By: #### L 500.4050, L501.3620, L100.0100, L501.2450 #### [facility] [address] [place], [address] RDW SD 40.7 fl Normal 35.1-43.9 [facility] Comment on above: Performed By: #### L 500.4050, L501.3620, L100.0100, L501.2450 #### [facility] [address] [place], [address] WBC (Bld) [#/Vol] 6.4 10*3/uL Normal 4.4-11.0 [facility] Comment on above: Performed By: #### L 500.4050, L501.3620, L100.0100, L501.2450 #### [facility] [address] [place], [address] CPK Total, Creatine Kinaseon 07-03-2025 CPK TOTAL 63 U/L Normal 24-195 [facility] Comment on above: Performed By: #### L 500.4050, L501.3620, L100.0100, L501.2450 ####[facility] [address] [place], [address] Carbon dioxide, total [Moles /volume] in Central venous bloodOrdered By: Dennise Mobley on 07-03-2025 CO2 [Moles/Vol] 16.4 mmol/L Low 21.0-32.0 [facility] Chloride assayOrdered By: Nnamdi Mobley on 07-03-2025 Chloride [Moles/Vol] 99 mmol/L 98-108 [facility] Comprehensive Metabolic Prof ilon 07-03-2025 Albumin [Mass/Vol] 4.3 g/dL Normal 3.4-4.8 [facility] Comment on above: Performed By: #### L 500.4050, L501.3620, L100.0100, L501.2450 ####[facility] [address] [place], [address] Albumin/Globulin [Mass ratio] 1.3 {ratio} Normal 0.9-2.4 [facility] Comment on above: Performed By: #### L 500.4050, L501.3620, L100.0100, L501.2450 ####[facility] [address] [place], [address] ALK PHOS 41 U/L Normal 35-104 [facility] Comment on above: Performed By: #### L 500.4050, L501.3620, L100.0100, L501.2450 ####[facility] [address] [place], [address] ALT [Catalytic activity/Vol] 16 U/L Normal <=34 [facility] Comment on above: Performed By: #### L 500.4050, L501.3620, L100.0100, L501.2450 ####[facility] [address] [place], [address] AST [Catalytic activity/Vol] 21 U/L Normal <=31 [facility] Comment on above: Performed By: #### L 500.4050, L501.3620, L100.0100, L501.2450 ####[facility] [address] [place], [address] Bilirubin [Mass/Vol] 0.45 mg/dL Normal 0.00-1.30 [facility] Comment on above: Performed By: #### L 500.4050, L501.3620, L100.0100, L501.2450 ####[facility] [address] [place], [address] BUN/CRE 9.4 RATIO Low 10-20 [facility] Comment on above: Performed By: #### L 500.4050, L501.3620, L100.0100, L501.2450 ####[facility] [address] [place], [address] Calcium [Mass/Vol] 9.3 mg/dL Normal 7.6-11.0 [facility] Comment on above: Performed By: #### L 500.4050, L501.3620, L100.0100, L501.2450 ####[facility] [address] [place], [address] Chloride [Moles/Vol] 99 mmol/L Normal 98-108 [facility] Comment on above: Performed By: #### L 500.4050, L501.3620, L100.0100, L501.2450 ####[facility] [address] [place], [address] CO2 [Moles/Vol] 16.4 mmol/L Low 21.0-32.0 [facility] Comment on above: Performed By: #### L 500.4050, L501.3620, L100.0100, L501.2450 ####[facility] [address] [place], [address] Creatinine [Mass/Vol] 0.85 mg/dL Normal 0.70-1.20 [facility] Comment on above: Performed By: #### L 500.4050, L501.3620, L100.0100, L501.2450 ####[facility] [address] [place], [address] ECRCL 45.14 ml/min Low 50-250 [facility] Comment on above: Performed By: #### L 500.4050, L501.3620, L100.0100, L501.2450 ####[facility] [address] [place], [address] GAP 18 High 5-15 [facility] Comment on above: Performed By: #### L 500.4050, L501.3620, L100.0100, L501.2450 ####[facility] [address] [place], [address] GFR/1.73 sq M.predicted among non-blacks MDRD (S/P/Bld) [Vol rate/Area] 73 mL/min/{1.73_m2} Normal >60 [facility] Comment on above: Result Comment: mL/m in/1.73m2 CKD-EPI Creatinine Equation (2020) Performed By: #### L 500.4050, L501.3620, L100.0100, L501.2450 ####[facility] [address] [place], [address] Globulin (S) [Mass/Vol] 3.3 g/dL Normal 2.2-4.2 [facility] Comment on above: Performed By: #### L 500.4050, L501.3620, L100.0100, L501.2450 ####[facility] [address] [place], [address] Glucose [Mass/Vol] 135 mg/dL High 70-99 [facility] Comment on above: Performed By: #### L 500.4050, L501.3620, L100.0100, L501.2450 ####[facility] [address] [place], [address] Potassium [Moles/Vol] 3.8 mmol/L Normal 3.3-5.1 [facility] Comment on above: Performed By: #### L 500.4050, L501.3620, L100.0100, L501.2450 ####[facility] [address] [place], [address] Sodium [Moles/Vol] 134 mmol/L Normal 133-145 [facility] Comment on above: Performed By: #### L 500.4050, L501.3620, L100.0100, L501.2450 ####[facility] [address] [place], [address] T PROT 7.6 g/dL Normal 5.9-8.4 [facility] Comment on above: Performed By: #### L 500.4050, L501.3620, L100.0100, L501.2450 ####[facility] [address] [place], [address] Urea nitrogen [Mass/Vol] 8 mg/dL Normal 4-19 [facility] Comment on above: Performed By: #### L 500.4050, L501.3620, L100.0100, L501.2450 ####[facility] [address] [place], [address] Electrocardiogram reportOrde red By: Enrico Cardona on 07-03-2025 EKG study [facility] [address] [place] [address] 12 Lead EKG 07/03/25 0911 MR#: [id number] Acct: [id number] Name: RAMONE GONZALES Rep #:[id number] : 1955 70 From: Enrico larkin MD Attending Dr: Status: DEP E R Ordering Dr: Dennise Mobley DO Date: 0 07/03/25 Location: ED Sex: F C Admitted: Test Reason : BACK PAIN Blood Pressure : */* mmHG Vent. Rate : 95 BPM Atrial Rate : 95 BPM P-R Int : 132 ms QRS Dur : 86 ms QT Int : 342 ms P-R-T Axes : 56 -60 102 degrees QTcB Int : 429 ms Sinus rhythm with Premature atrial complexes Left axis deviation Septal infarct , age undetermined Abnormal ECG Confirmed by Enrico Cardoan ([id number]), publications editor AQUILINO MARTINEZ ([id number]) on 55:49:19 AM Referred By: Confirmed By: Enrioc Cardona 07/04/25 0549 Date _ Enrico Cardona MD CC: Dr. Dennise Mobley DO; Dr. Berta Mar DO ~ Signed [facility] Other Phone: Emergency Department Summary on 07-03-2025 Emergency Department Summary [facility] Medical Records Department [address] [place] [address] Emergency Department Summary 07/03/25 MR#: [id number] Acct: [id number] Name: RAMONE GONZALES Rep #: [id number] : 1955 70 From: Dennise Mobley DO PCP: Dr. Berta Mar DO Status:DEP ER Location: ED HPI History of Present Illness Chief Complaint: Back Informant: patient and spouse/S.O. Narrative Narrative: Patient is a 70-year-old female with no significant past medical history presenting with back and abdominal pain as well as episode of lightheadedness. Patient states on Monday, 3 days ago she was helping her move things and was doing a lot of heavy lifting. But now she started to get sore in her lower back. On Shani she states that pain became more severe it is in her lower and mid back and wraps around to her abdomen. She has not been sleeping well at night because of this. The symptoms are persisting. She feels that she is getting spasms. She is the pain is even going up into her neck. It is worse with movements and certain positions. She has been taking back and body (she believes its acetaminophen) with some help. She notes this morning she started to feel lightheaded and had to lay on the floor. She also states that she has not been feeling well she has not been eating or drinking much. She has had nausea and chills. She has had headaches. Denies any URI symptoms. Denies any urinary symptoms. Denies any fevers. No vomiting or change in her bowel movements. States he had a normal bowel movement after lunch yesterday. Denies any chest pain or shortness of breath. Due to the severity of her symptoms and her getting lightheaded this morning she came in for further evaluation. She denies any swelling of her legs. No numbness or tingling appreciated. [facility] Home Medications ???Medication ???Instructions ???Recorded ???Last Taken ???Type cyclobenzaprine 10 mg tablet 10 mg PO TID PRN Muscle Spasm #20 07/03/25 Unknown Rx TABLETS ondansetron 4 mg disintegrating 4 mg PO Q8H PRN PRN Nausea #10 tab s 07/03/25 Unknown Rx tablet Allergy/AdvReac Type Severity Reaction Status Date / Time No Known Allergies Allergy Verified 07/03/25 08:17 [facility] ED Constitutional Constitutional ED: Reports chills; Denies fever(s) Eyes Eyes: Denies change in vision Respiratory/Chest Respiratory/Chest: Denies dyspnea Gastrointestinal Gastrointestinal: Reports abdominal pain Genitourinary Genitourinary ED: Denies dysuria or urinary frequency Musculoskeletal Musculoskeletal: Reports back pain, myalgias and neck pain Integumentary Denies rash Neurologic Neurologic: Reports headache(s) and weakness; Denies paresthesias Psychiatric Psychiatric: Denies anxiety Hematologic/Lymphatic Hematologic/Lymphatic: Denies easy bleeding or easy bruising EXAM Physical Exam Const Vital Signs: 07/03/25 08:17 07/03/25 10:17 07/03/25 10:37 Temperature 97.1 F L 97.7 F L Temperature Source Temporal Temporal Pulse Rate 97 87 Pulse Rate [Lying] 82 Pulse Rate [Sitting (for 1 minute prior to obtaining)] 83 Pulse Rate [Standing (for 1 minute prior to obtaining)] 93 Respiratory Rate 14 18 Blood Pressure 126/78 H 119/66 Blood Pressure [Lying] 113/63 Blood Pressure [Sitting (for 1 minute prior to obtaining)] 99/77 Blood Pressure [Standing (for 1 minute prior to obtaining)] 108/73 Blood Pressure Mean 94 83 Blood Pressure Mean [Lying] 79 Blood Pressure Mean [Sitting (for 1 minute prior to obtaining)] 84 Blood Pressure Mean [Standing (for 1 minute prior to obtaining)] 84 Pulse Ox 99 Oxygen Delivery Method Room Air Room Air Positive well nourished General Appearance ED: NAD HEENT Reports dry mucous membranes HEENT Narrative: Normal oropharynx. No nasal congestion present Mouth ED: Yes dry mucous membranes Mouth: dry mucous membranes Eyes PERRL Neck supple and no JVD Resp normal respiratory effort and clear to auscultation bilaterally Cardio regular rate, regular rhythm and no murmurs Cardio Narrative: 2+ radial and PT pulses present GI normal to inspection, nondistended, normoactive bowel sounds and soft to palpation Inspection: Negative for abdominal distention Palpation: Negative for tender or guarding Back/Spine normal to inspection Back/Spine Narrative: No midline spinal tenderness presents, diffuse muscle tenderness and tightness present General Back: Negative for CVA tenderness Cervical Spine: paracervical muscle tenderness Thoracic Spine / Upper Back: paraspinal muscle tenderness Lumbar Spine / Lower Back: ROM limited Neuro oriented x3 and no sensory deficits noted Sensorium / Orientation: alert Motor Exam: strength 5/5 throughout Psych mental status grossly normal Skin no rashes or (more content not included)... Normal [facility] Eosinophil percentageOrdered By: Dennise Mobley on 07-03-2025 Eosinophils/100 WBC (Bld) 0.2 % 0-5 [facility] Erythrocyte distribution wid th ratioOrdered By: Dennise Mobley on 07-03-2025 Erythrocyte distribution width (RBC) [Ratio] 12.1 % 11.6-14.6 [facility] Erythrocyte distribution wid th standard deviationOrdered By: Dennise Mobley on 07-03-2025 Erythrocyte distribution width (RBC) [Ratio] 40.7 fl 35.1-43.9 [facility] Glomerular filtration rate ( GFR) estimation/1.73 sq m using serum, plasma, or whole bOrdered By: Dennise Mobley on 07-03-2025 GFR/1.73 sq M.predicted among non-blacks MDRD (S/P/Bld) [Vol rate/Area] 73 mL/min/{1.73_m2} >60 [facility] Comment on above: mL/min/1.73m2 CKD-EP I Creatinine Equation (2020) Hematocrit Auto (Bld) [Volum e fraction]Ordered By: Dennise Mobley on 07-03-2025 Hematocrit (Bld) [Volume fraction] 34.7 % Low 37-47 [facility] Hemoglobin measurementOrdere d By: Dennise Mobley on 07-03-2025 Hemoglobin (Bld) [Mass/Vol] 12.2 g/dL 12.0-15.0 [facility] Immature granulocytes/100 WB C Auto (Bld)Ordered By: Dennise Mobley on 07-03-2025 Immature granulocytes/100 WBC (Bld) 0.300 % 0.0-0.9 [facility] Comment on above: IG% - Immature Granu locytes (promyelocytes, myelocytes and metamyelocytes) > 1% indicates that a LEFT SHIFT is Present. Ketones Test strip Ql (U)Ord ered By: Dennise Mobley on 07-03-2025 Ketones Ql (U) Negative Negative [facility] - Chemistry and C hemistry - challengeOrdered By: Dennise Mobley on 07-03-2025 AST [Catalytic activity/Vol] 21 U/L <32 [facility] Lipaseon 07-03-2025 Lipase [Catalytic activity/Vol] 20 U/L Normal 13-75 [facility] Comment on above: Result Comment: Shanthi beard note: LIPASE revised reference range effective 23. New Lipase methodology. Expected to produce lower values than the previous assay method. NEW Reference Range: 13 - 75 U/L Performed By: #### L 500.4050, L501.3620, L100.0100, L501.2450 ####[facility] [address] [place], [address] Lipase measurementOrdered By : Dennise Mobley on 07-03-2025 Lipase [Catalytic activity/Vol] 20 U/L 13-75 [facility] Comment on above: Please note:LIPASE r evised reference range effective 23. New Lipase methodology. Expected to produce lower values than the previous assay method. NEW Reference Range: 13 - 75 U/L MCV (mean corpuscular volume ) determinationOrdered By: Dennise Mobley on 07-03-2025 MCV (RBC) [Entitic vol] 91.3 fL 81-99 [facility] Mean corpuscular hemoglobin (MCH) determinationOrdered By: Dennise Mobley on 07-03-2025 MCH (RBC) [Entitic mass] 32.1 pg High 27.0-32.0 [facility] Mean corpuscular hemoglobin concentration (MCHC) determinationOrdered By: Dennise Mobley on 07-03-2025 MCHC (RBC) [Mass/Vol] 35.2 g/dL 32-36 [facility] Mean platelet volume determi nationOrdered By: Dennise Mobley on 07-03-2025 Platelet mean volume (Bld) [Entitic vol] 10.1 fL 6.2-12.0 [facility] Microscopic analysis of urin e for red blood cells (RBC)Ordered By: Dennise Mobley on 07-03-2025 Microscopic analysis of urine for red blood cells (RBC) 0 SEEN /hpf 0-5 [facility] Monocyte percentageOrdered B y: Dennise Mobley on 07-03-2025 Monocytes/100 WBC (Bld) 9.4 % 0-10 [facility] Mucus LM Ql (Urine sed)Order ed By: Dennise Mobley on 07-03-2025 Mucus Ql (Urine sed) 0 SEEN /hpf [facility] Neutrophil percentageOrdered By: Dennise Mobley on 07-03-2025 Neutrophils/100 WBC (Bld) 77.7 % High 47-70 [facility] Nitrite Test strip Ql (U)Ord ered By: Dennise Mobley on 07-03-2025 Nitrite Ql (U) Negative Negative [facility] Nucleated red blood cell per centageOrdered By: Dennise Mobley on 07-03-2025 Nucleated RBC/100 WBC (Bld) [Ratio] 0 % 0-5 [facility] Platelet countOrdered By: Nnamdi Mobley on 07-03-2025 Platelets (Bld) [#/Vol] 187 10*3/uL 150-450 [facility] Potassium measurement (mass/ volume)Ordered By: Dennise Mobley on 07-03-2025 Potassium (Unsp spec) [Mass/Vol] 3.8 mmol/L 3.3-5.1 [facility] Protein Test strip Ql (U)Ord ered By: Dennise Mobley on 07-03-2025 Protein Ql (U) 15 mg/dl High Negative [facility] RBC Auto (Bld) [#/Vol]Ordere d By: Dennise Mobley on 07-03-2025 RBC (Bld) [#/Vol] 3.80 10*6/uL Low 4.2-5.4 [facility] Serum creatinine measurement (mass/volume)Ordered By: Dennise Mobley on 07-03-2025 Creatinine [Mass/Vol] 0.85 mg/dL 0.70-1.20 [facility] Serum globulin measurementOr dered By: Dennise Mobley on 07-03-2025 Globulin (S) [Mass/Vol] 3.3 g/dL 2.2-4.2 [facility] Serum glucose measurement (m ass/volume)Ordered By: Dennise Mobley on 07-03-2025 Glucose [Mass/Vol] 135 mg/dL High 70-99 [facility] Serum or plasma alanine hawthorne otransferase (ALT) measurementOrdered By: Dennise Mobley on 07-03-2025 ALT [Catalytic activity/Vol] 16 U/L <35 [facility] Serum or plasma albumin dinora urement (mass/volume)Ordered By: Dennise Mobley on 07-03-2025 Albumin [Mass/Vol] 4.3 g/dL 3.4-4.8 [facility] Serum or plasma albumin/glob ulin mass ratioOrdered By: Dennise Mobley on 07-03-2025 Albumin/Globulin [Mass ratio] 1.3 {ratio} 0.9-2.4 [facility] Serum or plasma alkaline eloise sphatase measurementOrdered By: Dennise Mobley on 07-03-2025 ALP [Catalytic activity/Vol] 41 U/L 35-104 [facility] Serum or plasma calcium dinora urement (mass/volume)Ordered By: Dennise Mobley on 07-03-2025 Calcium [Mass/Vol] 9.3 mg/dL 7.6-11.0 [facility] Serum or plasma creatine kin ase activityOrdered By: Dennise Mobley on 07-03-2025 CK [Catalytic activity/Vol] 63 U/L 24-195 [facility] Serum or plasma urea nitroge n measurement (mass/volume)Ordered By: Dennise Mobley on 07-03-2025 Urea nitrogen [Mass/Vol] 8 mg/dL 4-19 [facility] Sodium levelOrdered By: Tim Mobley on 07-03-2025 Sodium [Moles/Vol] 134 mmol/L 133-145 [facility] Squamous epithelial cells de tection in urine sediment by light microscopyOrdered By: Dennise Mobley on 07-03-2025 Epithelial cells.squamous LM Ql (Urine sed) 0 SEEN /hpf - [facility] Total proteinOrdered By: Giselle Mobley on 07-03-2025 Protein [Mass/Vol] 7.6 g/dL 5.9-8.4 [facility] Urinalysis, Completeon 07-03 BACTERIA 0 SEEN Normal None Seen [facility] Comment on above: Order Comment: CLEAN CATCH Performed By: #### L 400.0001 #### [facility] [address] [place], [place], [id number] EPI,SQUAMOUS 0 SEEN Normal - [facility] Comment on above: Order Comment: CLEAN CATCH Performed By: #### L 400.0001 #### [facility] [address] [place], [place], [id number] Mucus Ql (Urine sed) 0 SEEN Normal [facility] Comment on above: Order Comment: CLEAN CATCH Performed By: #### L 400.0001 #### [facility] [address] [place], [place], [id number] RBC 0 SEEN Normal 0-5 [facility] Comment on above: Order Comment: CLEAN CATCH Performed By: #### L 400.0001 #### [facility] [address] [place], [place], [id number] WBC 0 SEEN Normal 0-5 [facility] Comment on above: Order Comment: CLEAN CATCH Performed By: #### L 400.0001 #### [facility] [address] [place], [place], [id number] Urine clarityOrdered By: Giselle Mobley on 07-03-2025 Clarity (U) Clear Clear [facility] Urine color determinationOrd ered By: Dennise Mobley on 07-03-2025 Color (U) Yellow Yellow [facility] Urine glucose detectionOrder ed By: Dennise Mobley on 07-03-2025 Glucose Ql (U) Normal mg/dl Normal [facility] Urine leukocyte esterase det ection by dipstickOrdered By: Dennise Mobley on 07-03-2025 Leukocyte esterase Test strip Ql (U) Negative Negative [facility] Urine pHOrdered By: Dennise sales on 07-03-2025 pH (U) 7.0 [pH] 5.0 - 8.0 [facility] Urine sediment bacteria coun t by microscopy (number/high power field)Ordered By: Dennise Mobley on 07-03-2025 Bacteria LM.HPF (Urine sed) [#/Area] 0 /[HPF] None Seen [facility] Urine specific gravity measu rementOrdered By: Dennise Mobley on 07-03-2025 Specific gravity (U) [Rel density] 1.010 1.002-1.030 [facility] Urine urobilinogen measureme ntOrdered By: Dennise Mobley on 07-03-2025 Urobilinogen Ql (U) Normal mg/dl Normal [facility] White blood cell (WBC) count Ordered By: Dennise Mobley on 07-03-2025 WBC (Bld) [#/Vol] 6.4 10*3/uL 4.4-11.0 [facility] White blood cell countOrdere d By: Dennise Mobley on 07-03-2025 White blood cell count 0 SEEN /hpf 0-5 [facility] OCT OPTIC NERVE CIRRUS OU (B OTH EYES)on 09-18-2024 [facility] Radiology Study [facility]ative) [facility] VISUAL FIELD 24-2 OU (BOTH E YES)on 09-18-2024 [facility] Radiology Study observation (narrative) [facility] CNCOon 04-03-2024 [facility] HNO ID: [id number] Author: COORDINATOR, MAMMOGRAPHY, ? Service: ? Author Type: Physician Type: Letter Filed: 04/03/2024 20:38 Note Text: April 04, 2024 PID: [id number] Ramone Leonard Taylornaseem [address] [place] [address] Dear Ms. Gonzales, We are pleased to [...] report will be kept on file at [facility] as part of your permanent medical record and are available for your continuing care. Thank you for allowing us to help in meeting your health care needs. Sincerely, Dr. Milan Interpreting Radiologist [facility] (Normal over 40) Normal [facility] DBT Breast - bilateral scree shonn 04-03-2024 IMPRESSION: NEGATIVE There is no mammographic evidence of malignancy. A 1 year screening mammogram is recommended. Lindsey Milan M.D. ym/penrad:04/03/2024 20:38:07 Residency Director(s): RT Migdalia(Shani)(M), [facility] letter sent: Normal over 40 Mammogram BI-RADS: [...] Health, Family Medicine, and Medical/Surgical Oncology, the [facility] has carefully reviewed the data and [...] their providers when to stop screening mammograms. Court Stenographer: Jermain Transcribe Date/Time: Apr 03 2024 11:24A Dictated by: LINDSEY MILAN MD This examination was interpreted and the report reviewed and electronically signed by: LINDSEY MILAN MD on Apr 03 2024 8:38PM [facility] DIVISION OF RADIOLOGY * * *Final Report* * * DATE OF EXAM: Apr 03 2024 11:46AM WRW [id number] - [facility] SCREENING W LYLE / PROCEDURE REASON: Z12.31 * * * * Physician Interpretation * * * * RESULT: #[id number] - ÁNGEL SCREENING W LYLE BILATERAL DIGITAL [...] dated: 12/31/2018 mammogram and 03/31/2016 mammogram - [facility]. The breasts are heterogeneously dense, which may obscure small masses. No significant masses, calcifications, or other findings are seen in either breast. There has been no significant interval change. DIVISION OF RADIOLOGY Provider, Ccf Bowen Cid - 04/03/2024 * * *Final Report* * * DATE OF EXAM: Apr 03 2024 11:46AM WRW 0582 - ÁNGEL SCREENING W LYLE / PROCEDURE REASON: Z10.08 * * * * Physician Interpretation * * * * RESULT: #[id number] - ÁNGEL SCREENING W LYLE BILATERAL DIGITAL [...] dated: 12/31/2018 mammogram and 03/31/2016 mammogram - [facility]. The breasts are heterogeneously dense, which may obscure small masses. No significant masses, calcifications, or other findings are seen in either breast. There has been no significant interval change. IMPRESSION IMPRESSION: NEGATIVE There is no mammographic evidence of malignancy. A 1 year screening mammogram is recommended. Lindsey randhawa/jermain:04/03/2024 20:38:07 Residency Director(s): RT Migdalia(R)(M), [facility] letter sent: Normal over 40 Mammogram BI-RADS: [...] Health, Family Medicine, and Medical/Surgical Oncology, the [facility] has carefully reviewed the data and [...] their providers when to stop screening mammograms. Court Stenographer: Jermain Transcribe Date/Time: Apr 03 2024 11:24A Dictated by: LINDSEY MILAN MD This examination was interpreted and the report reviewed and electronically signed by: LINDSEY MILAN MD on Apr 03 2024 8:38PM EST [facility] Radiology Study observation (narrative) Anupam ames [facility] DBT Breast - bilateral scree ningOrdered By: Ccf Provider on 04-03-2024 [facility] ÁNGEL SCREENING W TOMOon 04-03 ÁNGEL SCREENING W LYLE * * *Final Report* * * DATE OF EXAM: Apr 03 2024 11:46AM WRW 0582 - ÁNGEL SCREENING W LYLE / PROCEDURE REASON: Z12.31 * * * * Physician Interpretation * * * * RESULT: #[id number] - [facility] SCREENING W LYLE BILATERAL DIGITAL SCREENING MAMMOGRAM [...] dated: 12/31/2018 mammogram and 03/31/2016 mammogram - [facility]. The breasts are heterogeneously dense, which may obscure small masses. No significant masses, calcifications, or other findings are seen in either breast. There has been no significant interval change. IMPRESSION: NEGATIVE There is no mammographic evidence of malignancy. A 1 year screening mammogram is recommended. Lindsey randhawa/jermain:04/03/2024 20:38:07 Residency Director(s): RT Migdalia(Shani)(M), [facility] letter sent: Normal over 40 Mammogram BI-RADS: [...] Health, Family Medicine, and Medical/Surgical Oncology, the [facility] has carefully reviewed the data and [...] their providers when to stop screening mammograms. Court Stenographer: Jermain Transcribe Date/Time: Apr 03 2024 11:24A Dictated by: LINDSEY MILAN MD This examination was interpreted and the report reviewed and electronically signed by: LINDSEY MILAN MD on Apr 03 2024 8:38PM EST [id number] Normal [facility] Absolute lymphocyte counton 06-29-2022 Lymphocytes Auto (Unsp spec) [#/Vol] 1.44 10*3/uL 0.83-4.51 [facility] Work Phone: Basophil percentageon 2021 Basophils/100 WBC (Bld) 0.8 % 0-1 [facility] Work Phone: [phone] Bilirubin [Mass/Vol] 0.60 mg/dL 0.20-1.00 [facility] Work Phone: Comment on above: For patients on eltr ombopag therapy, use of Dimension [place] TBIL is not recommended. Chloride [Moles/Vol] 106 mmol/L 98-107 [facility] Work Phone: Cholesterol [Mass/Vol] 260 mg/dL <200 [facility] Work Phone: Comment on above: <200 mg/dL Desirable 200-240 mg/dL Borderline >240 mg/dL High Risk Eosinophils/100 WBC (Bld) 5.5 % 0-5 [facility] Work Phone: Glucose [Mass/Vol] 88 mg/dL 74-106 [facility] Work Phone: Neutrophils (Bld) [#/Vol] 1.6 10*3/uL 2.0-7.7 [facility] Work Phone: Neutrophils/100 WBC (Bld) 43.8 % 47-70 [facility] Work Phone: Potassium [Moles/Vol] 3.6 mmol/L 3.5-5.1 [facility] Work Phone: Protein [Mass/Vol] 7.6 g/dL 6.4-8.2 [facility] Work Phone: Sodium [Moles/Vol] 141 mmol/L 136-145 [facility] Work Phone: [phone] Triglyceride [Mass/Vol] 101 mg/dL <199 [facility] Work Phone: Comment on above: The drugs N-Acetylcy steine and Metamizole may falsely depress this assay.Serum Triglycerides Reference Interval Normal <150 mg/dL Borderline high 150 - 199 mg/dL High 200 - 499 mg/dL Very High > or = 500 mg/dL WBC (Bld) [#/Vol] 3.7 10*3/uL 4.4-11.0 [facility] Work Phone: [phone] Blood erythrocytes count (nu mber/volume)on 06-29-2022 RBC (Bld) [#/Vol] 3.92 10*6/uL 4.2-5.4 [facility] Work Phone: Blood hemoglobin measurement (mass/volume)on 06-29-2022 Hemoglobin (Bld) [Mass/Vol] 12.9 g/dL 12.0-15.0 [facility] Work Phone: [phone] Blood lymphocytes/100 leukoc yteson 06-29-2022 Lymphocytes/100 WBC (Bld) 39.5 % 19-41 [facility] Work Phone: Blood monocytes/100 leukocyt eson 06-29-2022 Monocytes/100 WBC (Bld) 10.4 % 0-10 [facility] Work Phone: [phone] Blood platelet mean volumeon 06-29-2022 Platelet mean volume (Bld) [Entitic vol] 10.4 fL 6.2-12.0 [facility] Work Phone: Determination of erythrocyte mean corpuscular volume (MCV)on 06-29-2022 MCV (RBC) [Entitic vol] 97.7 fL 81-99 [facility] Work Phone: Hematocrit Auto (Bld) [Volum e fraction]on 06-29-2022 Hematocrit (Bld) [Volume fraction] 38.3 % 37-47 [facility] Work Phone: [phone] Iron measurement (mass/mass) on 06-29-2022 Iron (Unsp spec) [Mass/Mass] 74 ug/dL 50-170 [facility] Work Phone: Laboratory - Chemistry and C hemistry - challengeon 06-29-2022 ALP [Catalytic activity/Vol] 36 U/L 45-117 [facility] Work Phone: ALT [Catalytic activity/Vol] 19 U/L 13-56 [facility] Work Phone: CO2 [Moles/Vol] 26.0 mmol/L 21.0-32.0 [facility] Work Phone: [phone] Cobalamin (Vitamin B12) [Mass/Vol] 257 pg/mL 211-911 [facility] Work Phone: Globulin (S) [Mass/Vol] 3.4 g/dL 2.2-4.2 [facility] Work Phone: Urea nitrogen/Creatinine [Mass ratio] 15.7 mg/mg 10-20 [facility] Work Phone: Laboratory - Hematology and Cell countson 06-29-2022 Erythrocyte distribution width (RBC) [Entitic vol] 45.2 fL 35.1-43.9 [facility] Work Phone: Erythrocyte distribution width (RBC) [Ratio] 12.5 % 11.6-14.6 [facility] Work Phone: Immature granulocytes/100 WBC (Bld) 0.000 % 0.0-0.9 [facility] Work Phone: Comment on above: IG% - Immature Granu locytes (promyelocytes, myelocytes and metamyelocytes) > 1% indicates that a LEFT SHIFT is Present. MCH (RBC) [Entitic mass] 32.9 pg 27.0-32.0 [facility] Work Phone: Nucleated RBC/100 WBC (Bld) [Ratio] 0 % 0-5 [facility] Work Phone: MCHC Auto (RBC) [Mass/Vol]on 06-29-2022 MCHC (RBC) [Mass/Vol] 33.7 g/dL 32-36 [facility] Work Phone: No Panel Informationon 06-29 Estimated GFR (MDRD) Amer 81 mL/min >60 [facility] Work Phone: Comment on above: GFR Calc Estimated GFR (MDRD) Non-Af Amer 67 mL/min >60 [facility] Work Phone: Comment on above: Non- GFR Calc Thyroid Stimulating Hormone (TSH) 1.57 uIU/mL 0.358-3.74 [facility] Work Phone: Platelets bldon 06-29-2022 Platelets (Bld) [#/Vol] 250 10*3/uL 150-450 [facility] Work Phone: [phone] Serum or plasma albumin dinora urement (mass/volume)on 06-29-2022 Albumin [Mass/Vol] 4.2 g/dL 3.2-5.0 [facility] Work Phone: Serum or plasma albumin/glob ulin mass ratioon 06-29-2022 Albumin/Globulin [Mass ratio] 1.2 {ratio} 0.9-2.4 [facility] Work Phone: Serum or plasma calcium dinora urement (mass/volume)on 06-29-2022 Calcium [Mass/Vol] 9.5 mg/dL 8.5-10.1 [facility] Work Phone: Serum or plasma cholesterol in HDL measurement (mass/volume)on 06-29-2022 Cholesterol in HDL [Mass/Vol] 74 mg/dL >40 [facility] Work Phone: Comment on above: The drugs N-Acetylcy steine and Metamizole may falsely depress this assay. Reference Range HDL <40 mg/dL Low HDL Cholesterol HDL >or= 60 mg/dL High HDL Cholesterol Serum or plasma cholesterol in VLDL measurement (mass/volume)on 06-29-2022 Cholesterol in VLDL [Mass/Vol] 20 mg/dL 5-40 [facility] Work Phone: Serum or plasma creatinine m easurement (mass/volume)on 06-29-2022 Creatinine [Mass/Vol] 0.89 mg/dL 0.55-1.02 [facility] Work Phone: Comment on above: The validity of the calculated GFR & GFRAA in patients over 70 years has not been determined. Clinical correlation is essential. Serum or plasma low density lipoprotein (LDL) cholesterol measurement (mass/volume)on 06-29-2022 Cholesterol in LDL [Mass/Vol] 166 mg/dL 0-130 [facility] Work Phone: Serum or plasma urea nitroge n measurement (mass/volume)on 06-29-2022 Urea nitrogen [Mass/Vol] 14 mg/dL 7-18 [facility] Work Phone: [phone] Thin prep Papanicolaou smear with manual screeningon 06-29-2022 Thin prep Papanicolaou smear with manual screening 17 U/L 15-37 [facility] Work Phone: Thin prep Papanicolaou smear with manual screening 9 5-15 [facility] Work Phone: CBC AND DIFFERENTIALon 04-29 Basophils (Bld) [#/Vol] 0.00 10*3/uL Normal 0.00 - 0.1 0 [facility] Comment on above: Performed By: #### C BCDF ####[address] [address] Basophils/100 WBC (Bld) 0.5 % Normal 0.0 - 2.0 [facility] Comment on above: Performed By: #### C BCDF ####[address] [address] Eosinophils (Bld) [#/Vol] 0.30 10*3/uL Normal 0.00 - 0.70 [facility] Comment on above: Performed By: #### C BCDF ####[address] [address] Eosinophils/100 WBC (Bld) 3.6 % Normal 0.0 - 6.0 [facility] Comment on above: Performed By: #### C BCDF ####[address] [address] Erythrocyte distribution width (RBC) [Ratio] 12.9 % Normal 11.5 - 14.5 [facility] Comment on above: Performed By: #### C BCDF ####[address] [address] Hematocrit (Bld) [Volume fraction] 31.8 % Low 36.0 - 46.0 [facility] Comment on above: Performed By: #### C BCDF ####[address] [address] Hemoglobin (Bld) [Mass/Vol] 10.9 g/dL Low 12.0 - 16.0 [facility] Comment on above: Performed By: #### C BCDF ####[address] [address] Lymphocytes (Bld) [#/Vol] 1.70 10*3/uL Normal 1.20 - 4.80 [facility] Comment on above: Performed By: #### C BCDF ####[address] [address] Lymphocytes/100 WBC (Bld) 24.0 % Normal 13.0 - 44.0 [facility] Comment on above: Performed By: #### C BCDF ####[address] [address] MCHC (RBC) [Mass/Vol] 34.3 g/dL Normal 32.0 - 36.0 [facility] Comment on above: Performed By: #### C BCDF ####[address] [address] MCV (RBC) [Entitic vol] 97 fL Normal 80 - 100 [facility] Comment on above: Performed By: #### C BCDF ####[address] [address] Monocytes (Bld) [#/Vol] 0.50 10*3/uL Normal 0.10 - 1.0 0 [facility] Comment on above: Performed By: #### C BCDF ####[address] [address] Monocytes/100 WBC (Bld) 6.6 % Normal 2.0 - 10.0 [facility] Comment on above: Performed By: #### C BCDF ####[address] [address] Neutrophils (Bld) [#/Vol] 4.50 10*3/uL Normal 1.20 - 7.70 [facility] Comment on above: Result Comment: Perc ent differential counts (%) should be interpreted in the context of the absolute cell counts (cells/L). Performed By: #### C BCDF ####[address] [address] Neutrophils/100 WBC (Bld) 65.3 % Normal 40.0 - 80.0 [facility] Comment on above: Performed By: #### C BCDF ####[address] [address] Platelets (Bld) [#/Vol] 173 10*3/uL Normal 150 - 450 [facility] Comment on above: Performed By: #### C BCDF ####[address] [address] RBC (Bld) [#/Vol] 3.29 x10E12/L Low 4.00 - 5.20 [facility] Comment on above: Performed By: #### C BCDF ####[place] [id number] WBC (Bld) [#/Vol] 7.0 10*3/uL Normal 4.4 - 11.3 [facility] Comment on above: Performed By: #### C BCDF ####[place] [address] COMPREHENSIVE PANELon 2019 Albumin [Mass/Vol] 3.3 g/dL Low 3.4 - 5.0 [facility] Comment on above: Performed By: #### C K #### [place] [address] ALP [Catalytic activity/Vol] 27 U/L Low 33 - 136 [facility] Comment on above: Performed By: #### C K #### [place] [address] ALT [Catalytic activity/Vol] 10 U/L Normal 7 - 45 [facility] Comment on above: Result Comment: Radha ents treated with Sulfasalazine may generate falsely decreased results for ALT. Performed By: #### C K #### [address] [address] Anion gap [Moles/Vol] 8 mmol/L Low 10 - 20 [facility] Comment on above: Performed By: #### C K #### [place] [id number] AST [Catalytic activity/Vol] 15 U/L Normal 9 - 39 [facility] Comment on above: Performed By: #### C K #### [address] [address] Bilirubin [Mass/Vol] 0.4 mg/dL Normal 0.0 - 1.2 [facility] Comment on above: Performed By: #### C K #### [place] [id number] Calcium [Mass/Vol] 8.3 mg/dL Low 8.6 - 10.3 [facility] Comment on above: Performed By: #### C K #### [address] [address] Chloride [Moles/Vol] 110 mmol/L High 98 - 107 [facility] Comment on above: Performed By: #### C K #### [address] [address] Creatinine [Mass/Vol] 0.71 mg/dL Normal 0.50 - 1.05 [facility] Comment on above: Performed By: #### C K #### [address] [address] GFR- AM. >60 Normal >60 [facility] Comment on above: Result Comment: CALC ULATIONS OF ESTIMATED GFR ARE PERFORMED USING THE MDRD STUDY EQUATION FOR THE IDMS-TRACEABLE CREATININE METHODS. CLIN CHEM 2007;53:766-72 Performed By: #### C K #### [place] [id number] GFR-NON AM. >60 Normal >60 [facility] Comment on above: Performed By: #### C K #### [address] [address] Glucose [Mass/Vol] 106 mg/dL High 74 - 99 [facility] Comment on above: Performed By: #### C K #### [address] [address] HCO3 (Bld) [Moles/Vol] 27 mmol/L Normal 21 - 32 [facility] Comment on above: Performed By: #### C K #### [address] [address] Potassium [Moles/Vol] 3.5 mmol/L Normal 3.5 - 5.3 [facility] Comment on above: Performed By: #### C K #### [address] [address] Protein [Mass/Vol] 5.2 g/dL Low 6.4 - 8.2 [facility] Comment on above: Performed By: #### C K #### [address] [place] [address] Sodium [Moles/Vol] 141 mmol/L Normal 136 - 145 [facility] Comment on above: Performed By: #### C K #### [address] [address] Urea nitrogen [Mass/Vol] 4 mg/dL Low 6 - 23 [facility] Comment on above: Performed By: #### C K #### [address] [address] Discharge [id number] Discharge Profile2 Discharge Orders: Anticipated Discharge Date: Anticipated Discharge [id number] Problem List: Additional Dx: Food poisoning: Catalog [...] at 29-Apr-2020 12:07:52 Appointments: Follow-Up Appointment 01: Physician/Dept/Service Dr. Mar Reason for Referralhospital follow up Call to Schedule in1 week [id number] Goldman Phone [phone] CommentsPatient prefers to make follow up appointment. Electronic Signatures: Misty Lorenz (PCNA/Long Distance Billing Operator) (Signed 29-Apr-2020 12:09) Authored: Appointments Brian Kaur () (Signed 29-Apr-2020 12:07) Authored: Discharge Orders, Hospital Course (Home Care/Gold Form), Provider FINAL REVIEW of Orders, Appointments, Gold Form - Cooker Chip Summary Last Updated: 29-Apr-2020 12:09 by Misty Lorenz (PCNA/[place]) Normal [facility] STOOL PATHOGEN PCR PANELon 0 04-29-2020 CAMPYLOBACTER GP. NOT DETECTED Normal NOT DETECTED [facility] Comment on above: Performed By: #### C K #### [place] [address] NOROVIRUS GI/GII NOT DETECTED Normal NOT DETECTED [facility] Comment on above: Performed By: #### C K #### [place] [address] ROTAVIRUS A NOT DETECTED Normal NOT DETECTED [facility] Comment on above: Result Comment: The enteric [...] panel. Performed By: #### C K #### [place] [address] SALMONELLA SP. NOT DETECTED Normal NOT DETECTED [facility] Comment on above: Performed By: #### C K #### [place] [address] SHIGA TOXIN 1 NOT DETECTED Normal NOT DETECTED [facility] Comment on above: Performed By: #### C K #### [place] [address] SHIGA TOXIN 2 NOT DETECTED Normal NOT DETECTED [facility] Comment on above: Performed By: #### C K #### [place] [address] SHIGELLA SP. NOT DETECTED Normal NOT DETECTED [facility] Comment on above: Performed By: #### C K #### [place] [address] VIBRIO GROUP NOT DETECTED Normal NOT DETECTED [facility] Comment on above: Performed By: #### C K #### [place] [address] YERSINIA ENTEROCOLITICA NOT DETECTED Normal NOT DETECT ED [facility] Comment on above: Performed By: #### C K #### [place] [address] CBCon 04-28-2020 Erythrocyte distribution width (RBC) [Ratio] 12.8 % Normal 11.5 - 14.5 [facility] Comment on above: Performed By: #### C BC ####[place] [address] Hematocrit (Bld) [Volume fraction] 35.5 % Low 36.0 - 46.0 [facility] Comment on above: Performed By: #### C BC ####[place] [address] Hemoglobin (Bld) [Mass/Vol] 12.0 g/dL Normal 12.0 - 16.0 [facility] Comment on above: Performed By: #### C BC ####[address] [place] [address] MCHC (RBC) [Mass/Vol] 33.8 g/dL Normal 32.0 - 36.0 [facility] Comment on above: Performed By: #### C BC ####[address] [address] MCV (RBC) [Entitic vol] 96 fL Normal 80 - 100 [facility] Comment on above: Performed By: #### C BC ####[place] [id number] Platelets (Bld) [#/Vol] 202 10*3/uL Normal 150 - 450 [facility] Comment on above: Performed By: #### C BC ####[place] [id number] RBC (Bld) [#/Vol] 3.69 x10E12/L Low 4.00 - 5.20 [facility] Comment on above: Performed By: #### C BC ####[place] [id number] WBC (Bld) [#/Vol] 8.4 10*3/uL Normal 4.4 - 11.3 [facility] Comment on above: Performed By: #### C BC ####[place] [address] COMPREHENSIVE PANELon 2019 Albumin [Mass/Vol] 3.7 g/dL Normal 3.4 - 5.0 [facility] Comment on above: Performed By: #### C MP ####[place] [id number] ALP [Catalytic activity/Vol] 33 U/L Normal 33 - 136 [facility] Comment on above: Performed By: #### C MP ####[place] [id number] ALT [Catalytic activity/Vol] 10 U/L Normal 7 - 45 [facility] Comment on above: Result Comment: Radha ents treated with Sulfasalazine may generate falsely decreased results for ALT. Performed By: #### C MP ####[place] [id number] Anion gap [Moles/Vol] 9 mmol/L Low 10 - 20 [facility] Comment on above: Performed By: #### C MP ####[address] [address] AST [Catalytic activity/Vol] 14 U/L Normal 9 - 39 [facility] Comment on above: Performed By: #### C MP ####[address] [address] Bilirubin [Mass/Vol] 0.5 mg/dL Normal 0.0 - 1.2 [facility] Comment on above: Performed By: #### C MP ####[address] [address] Calcium [Mass/Vol] 8.6 mg/dL Normal 8.6 - 10.3 [facility] Comment on above: Performed By: #### C MP ####[address] [address] Chloride [Moles/Vol] 108 mmol/L High 98 - 107 [facility] Comment on above: Performed By: #### C MP ####[address] [address] Creatinine [Mass/Vol] 0.75 mg/dL Normal 0.50 - 1.05 [facility] Comment on above: Performed By: #### C MP ####[address] [address] GFR- AM. >60 Normal >60 [facility] Comment on above: Result Comment: CALC ULATIONS OF ESTIMATED GFR ARE PERFORMED USING THE MDRD STUDY EQUATION FOR THE IDMS-TRACEABLE CREATININE METHODS. CLIN CHEM 2007;53:766-72 Performed By: #### C MP ####[address] [address] GFR-NON AM. >60 Normal >60 [facility] Comment on above: Performed By: #### C MP ####[address] [address] Glucose [Mass/Vol] 123 mg/dL High 74 - 99 [facility] Comment on above: Performed By: #### C MP ####[address] [address] HCO3 (Bld) [Moles/Vol] 25 mmol/L Normal 21 - 32 [facility] Comment on above: Performed By: #### C MP ####[address] [address] Potassium [Moles/Vol] 3.6 mmol/L Normal 3.5 - 5.3 [facility] Comment on above: Performed By: #### C MP ####[place] [address] Protein [Mass/Vol] 5.9 g/dL Low 6.4 - 8.2 [facility] Comment on above: Performed By: #### C MP ####[place] [id number] Sodium [Moles/Vol] 138 mmol/L Normal 136 - 145 [facility] Comment on above: Performed By: #### C MP ####[place] [id number] Urea nitrogen [Mass/Vol] 7 mg/dL Normal 6 - 23 [facility] Comment on above: Performed By: #### C MP ####[place] [id number] Daily Progress Note-Medicine on 04-28-2020 Daily Progress [...] Psychiatric: NEGATIVE: Mood Changes, Anxiety Subjective Data: RAMONE GONZALES is a 64 year old Female who is Hospital Day # 2. Additional Information: Still having some crampy abdominal pain diffusely Take in clear liquids however she is having incontinence of watery stool although she did have some brown stool semi-formed today No nausea or vomiting Objective Data: Objective Information: T [id number] [id number]% Date/Time04/28 11: 11: 11: 11: 11:15 Range(37C [...] Subjective Data, Objective Data, Assessment and Plan, Signature/Cosignature/ Attestation Last Updated: 28-Apr-2020 13:48 by Brian Kaur () [facility] Discharge Planning [id number] 04-28-2020 Discharge Planning Note2 Discharge Plann ing: Planned Dispositionhome Discharge [facility]inationHome [facility] [place] of Choice Explainedyes Anticipated Discharge [id number] Discharge Planning Care Transitions Note 04/28/2020 @ [...] SW to follow on referral. Izabela South, AUTOMOTIVE ALIGNMENT SPECIALIST, TRIAGE TECHNICIAN Discharge Note: 04/29/2020 1422 Discharge instructions and pt responsibilities reviewed with pt, pt , and copy given. New prescription for Percocet given to pt. Notified prescription for Dicyclomine has been electronically submitted to [facility] in [place] per pt preference. Reviewed dose, purpose, side [...] no distress noted, no complaints voiced. Ravi outside operator: Discharge Planning Assessment [id number] Stated Reason for Admissionbloody stools(1) Arrived Fromemergency department (1) Lives Withspouse(1) Living Arrangementshouse(1) Resource/Environmental Concernsnone(1) [place]ipated [place](1) Services Anticipated at Transitionnone(1) Nursing Checklist: Lines/Cathetersremoved /appropriate for next level of care Discharge Med Rec Reconciled with eMAKrishna Patient has Prescriptionsyes Transportation for Discharge Confirmedyes Follow up Reviewedyes Discharge Instructions Reviewed WithPatient, Significant Other Discharge Instructions Outcomeverbalize recall/understanding Discharge Instructions Review Completed with Patient/Family (diet, activity, pt instructions)yes Discharge Documentation: Discharge/Transfer Date/[id number] 14:22 Discharge Modeambulatory Discharged Accompanied Byspouse Transportation Methodprivate car Valuables/Medications/ Belongings Returnedyes Final DispositionHome Electronic Signatures: Izabela South (TRIAGE TECHNICIAN) (Signed 28-Apr-2020 13:52) Authored: Discharge Planning Note2 Jovanna Casanova (RN) (Signed 29-Apr-2020 14:30) Authored: Discharge Planning Note2 Last Updated: 29-Apr-2020 14:30 by Jovanna Casanova (RN) References: 1. Data Referenced From Patient Profile - Adult v2 27-Apr-2020 18:12 [facility] STOOL PATHOGEN PCR PANELon 0 04-28-2020 Lab Specimen Source [facility] Comment on above: Performed By: #### C K #### [place] [address] Admission Risk Screen - Adul ton 04-27-2020 Admission Risk Screen - Adult Allergies: Allergies: Neosporin: Rash Patient Verification: New W ID Band Applied in my Departmentno Type of ID Patient is WearingW wristband, but not applied here Patient Transferred from Other Facility ([facility], [facility],etc)no Patient Identity Verified Bypatient ID [...] risk with low risk for associated injury [place] Safety InterventionsWDL *orient to call system *instruct [...] Learning Preferencesverbal instruction Cultural Considerationsnone Developmental Considerationsnone Yazdanism Considerationsnone Learning Assessment (Other Learner): Other learner [...] Spiritual Screen: Are there any cultural, spiritual, yazidism practices/values/needs that are important for us to knowno Do you want a visit/item from Pastoral Careno Would you like your Area Director Of Home Health Sales/Special Agent Secret Service notifiedno CAGE: Is this an injured patient at a Trauma Center ([facility]/[place]/[facility]/[place]): no (2) Vaccinations: Vaccination - Influenza Vaccination [...] Screen - Adult Emergency 27-Apr-2020 13:25 Normal [facility] CBC AND DIFFERENTIALon 04-27 Basophils (Bld) [#/Vol] 0.10 10*3/uL Normal 0.00 - 0.1 0 [facility] Comment on above: Performed By: #### C BCDF #### [address] [address] Basophils/100 WBC (Bld) 0.6 % Normal 0.0 - 2.0 [facility] Comment on above: Performed By: #### C BCDF #### [address] [address] Eosinophils (Bld) [#/Vol] 0.10 10*3/uL Normal 0.00 - 0.70 [facility] Comment on above: Performed By: #### C BCDF #### [address] [address] Eosinophils/100 WBC (Bld) 1.0 % Normal 0.0 - 6.0 [facility] Comment on above: Performed By: #### C BCDF #### [address] [address] Erythrocyte distribution width (RBC) [Ratio] 12.4 % Normal 11.5 - 14.5 [facility] Comment on above: Performed By: #### C BCDF #### [address] [address] Hematocrit (Bld) [Volume fraction] 39.3 % Normal 36.0 - 46.0 [facility] Comment on above: Performed By: #### C BCDF #### [address] [address] Hemoglobin (Bld) [Mass/Vol] 13.4 g/dL Normal 12.0 - 16.0 [facility] Comment on above: Performed By: #### C BCDF #### [address] [address] Lymphocytes (Bld) [#/Vol] 1.30 10*3/uL Normal 1.20 - 4.80 [facility] Comment on above: Performed By: #### C BCDF #### [address] [address] Lymphocytes/100 WBC (Bld) 14.6 % Normal 13.0 - 44.0 [facility] Comment on above: Performed By: #### C BCDF #### [address] [address] MCHC (RBC) [Mass/Vol] 34.2 g/dL Normal 32.0 - 36.0 [facility] Comment on above: Performed By: #### C BCDF #### [address] [address] MCV (RBC) [Entitic vol] 96 fL Normal 80 - 100 [facility] Comment on above: Performed By: #### C BCDF #### [address] [address] Monocytes (Bld) [#/Vol] 0.50 10*3/uL Normal 0.10 - 1.0 0 [facility] Comment on above: Performed By: #### C BCDF #### [address] [address] Monocytes/100 WBC (Bld) 6.1 % Normal 2.0 - 10.0 [facility] Comment on above: Performed By: #### C BCDF #### [address] [address] Neutrophils (Bld) [#/Vol] 6.80 10*3/uL Normal 1.20 - 7.70 [facility] Comment on above: Result Comment: Perc ent differential counts (%) should be interpreted in the context of the absolute cell counts (cells/L). Performed By: #### C BCDF #### [address] [address] Neutrophils/100 WBC (Bld) 77.7 % Normal 40.0 - 80.0 [facility] Comment on above: Performed By: #### C BCDF #### [address] [address] Platelets (Bld) [#/Vol] 236 10*3/uL Normal 150 - 450 [facility] Comment on above: Performed By: #### C BCDF #### [address] [address] RBC (Bld) [#/Vol] 4.09 x10E12/L Normal 4.00 - 5.20 [facility] Comment on above: Performed By: #### C BCDF #### [address] [address] WBC (Bld) [#/Vol] 8.7 10*3/uL Normal 4.4 - 11.3 [facility] Comment on above: Performed By: #### C BCDF #### [address] [address] COMPREHENSIVE PANELon 2019 Albumin [Mass/Vol] 4.3 g/dL Normal 3.4 - 5.0 [facility] Comment on above: Performed By: #### C MP #### [address] [address] ALP [Catalytic activity/Vol] 38 U/L Normal 33 - 136 [facility] Comment on above: Performed By: #### C MP #### [address] [address] ALT [Catalytic activity/Vol] 12 U/L Normal 7 - 45 [facility] Comment on above: Result Comment: Radha ents treated with Sulfasalazine may generate falsely decreased results for ALT. Performed By: #### C MP #### [address] [address] Anion gap [Moles/Vol] 12 mmol/L Normal 10 - 20 [facility] Comment on above: Performed By: #### C MP #### [address] [address] AST [Catalytic activity/Vol] 17 U/L Normal 9 - 39 [facility] Comment on above: Performed By: #### C MP #### [address] [address] Bilirubin [Mass/Vol] 0.5 mg/dL Normal 0.0 - 1.2 [facility] Comment on above: Performed By: #### C MP #### [address] [address] Calcium [Mass/Vol] 9.7 mg/dL Normal 8.6 - 10.3 [facility] Comment on above: Performed By: #### C MP #### [address] [address] Chloride [Moles/Vol] 103 mmol/L Normal 98 - 107 [facility] Comment on above: Performed By: #### C MP #### [address] [address] Creatinine [Mass/Vol] 0.81 mg/dL Normal 0.50 - 1.05 [facility] Comment on above: Performed By: #### C MP #### [address] [address] GFR- AM. >60 Normal >60 [facility] Comment on above: Result Comment: CALC ULATIONS OF ESTIMATED GFR ARE PERFORMED USING THE MDRD STUDY EQUATION FOR THE IDMS-TRACEABLE CREATININE METHODS. CLIN CHEM 2007;53:766-72 Performed By: #### C MP #### [address] [address] GFR-NON AM. >60 Normal >60 [facility] Comment on above: Performed By: #### C MP #### [address] [address] Glucose [Mass/Vol] 116 mg/dL High 74 - 99 [facility] Comment on above: Performed By: #### C MP #### [address] [address] HCO3 (Bld) [Moles/Vol] 25 mmol/L Normal 21 - 32 [facility] Comment on above: Performed By: #### C MP #### [address] [address] Potassium [Moles/Vol] 3.6 mmol/L Normal 3.5 - 5.3 [facility] Comment on above: Performed By: #### C MP #### [address] [address] Protein [Mass/Vol] 7.0 g/dL Normal 6.4 - 8.2 [facility] Comment on above: Performed By: #### C MP #### [address] [address] Sodium [Moles/Vol] 136 mmol/L Normal 136 - 145 [facility] Comment on above: Performed By: #### C MP #### [address] [address] Urea nitrogen [Mass/Vol] 13 mg/dL Normal 6 - 23 [facility] Comment on above: Performed By: #### C MP #### [place] [id number] CORONAVIRUS 2019 BY PCRon CORONAVIRUS 2019,PCR NOT DETECTED Normal Not Detected [facility] Comment on above: Result Comment: This assay is designed to detect the N2 and E genes of SARS-CoV-2 via nucleic acid amplification. A Not Detected result does not preclude COVID-19 infection since the adequacy of sample collection and/or low viral burden may result in presence of viral nucleic acids below the clinical sensitivity of this test method. Fact sheet for providers: www.fda.gov/media/669108/download Fact sheet for patients: www.fda.gov/media/992880/download This test has received FDA Emergency Use Authorization (EUA) and has been verified by [facility]. This test is only authorized for the duration of time that circumstances exist to justify the authorization of the emergency use of in vitro diagnostic tests for the detection of SARS-CoV-2 virus and/or diagnosis of COVID-19 infection under section 564(b)(1) of the Act, 21 U.S.C. 360bbb-3(b)(1), unless the authorization is terminated or revoked sooner. [facility] is certified under CLIA-88 as qualified to perform high complexity testing. Testing is performed in the [facility] laboratory located at [address] [place] [address]. Performed By: #### C OV19 ####[place] [address] Lab Specimen Source Nasal, Nasopharyngeal Normal [facility] Comment on above: Performed By: #### C OV19 ####[place] [address] CREATINE KINASEon 04-27-2020 CK [Catalytic activity/Vol] 77 U/L Normal 0 - 215 [facility] Comment on above: Performed By: #### C K #### [place] [address] CT ABDOMEN AND PELVIS W IV C ONTRASTon 04-27-2020 CT ABDOMEN AND PELVIS W IV CONTRAST Patient Name: RAMONE GONZALES STUDY: CT ABDOMEN AND PELVIS W IV CONTRAST; 04/27/2020 3:28 pm INDICATION: stable. Nausea, vomiting and diarrhea for 1 day. Cramping and bloody stools. COMPARISON: None. ACCESSION NUMBER(S): [id number] ORDERING CLINICIAN: FLOR NOE TECHNIQUE: Contiguous axial [...] bowel and right colon. No focal diverticulitis. PERITONEUM/RETROPERITO NEUM/LYMPH NODES: Trace intrapelvic free fluid is seen. [...] collection. Electronically signed by: JAYE LEIGH MD [facility] Consult-Gastroenterologyon 0 04-27-2020 Consult-Gastroenterology Service: Service: Gastroenterology Consult: Consult requested by (Attending Name): Terell Genao Reason: gi bleed History of Present Illness: HPI: RAMONE GONZALES is a 64 year old Female [...] denied Medical history unremarkable. Surgical history unremarkable. 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 Family history both parents mother in mid 80s and father in early 90s from heart disease. 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 10 system review negative except that alludes above. Allergies: Neosporin: Rash Objective: Objective Information: T PRBPSpO2 [id number]/7693% Date/Time04/27 20: 20: 20:017 20:017/20 20:01 Range(36.8C - 37.3C ) (72 - [...] lesions, no rashes Medications: Medications: Continuous Medications 1. Sodium Chloride 0.9% Infusion: 1000 mL IntraVenous 2. Sodium Chloride 0.9% Infusion: 1000 mL IntraVenous Scheduled Medications 1. Ascorbic Acid: 500 mg Oral 2 Times a Day PRN Medications 1. Magnesium Hydroxide -Al Hydrox -Simethicone Oral [...] supportive care. Consult Signoff: Consult Order ID: [id number] Electronic Signatures: [employer]) (Signed 27-Apr-2020 20:46) Authored: Service, History of Present Illness, Allergies, Objective, Assessment/Recommendat ions, Signature/Cosignature/ Attestation Last Updated: 27-Apr-2020 20:46 by [employer]) [facility] History and Physicalon 04-27 History and Physical History of Present Illness: HPI: RAMONE GONZALES is a 64 year old Female [...] a day. Objective: Objective Information: T PRBPSpO2 [id number]/7197% Date/Time04/27 18: 18: 18: 18: 18:07 Range(36.8C - 37.2C ) (72 - 87 ) (16 - 20 ) (120 - 142 )/ (71 - 93 ) (97% - 98% ) Highest temp of 37.2 C was recorded at 04/27 18: Pain reported at 04/27 18:07: 5 = [...] Cl- BUN / 136 103 13 / Glucose ----- 116 H K+ HCO3- Creat \ 3.6 [...] control and supportive DVT prophylaxis with SCDs Signatures/Attestation /Certification: Note Completion: Attending Provider Inpatient Certification StatementI [...] Prior to Admission, Objective, Assessment and Plan, Signatures/Attestation /Certification Last Updated: 27-Apr-2020 19:15 by Terell Genao) Normal [facility] LACTATEon 04-27-2020 Lactate [Moles/Vol] 0.9 mmol/L Normal 0.4 - 2.0 [facility] Comment on above: Result Comment: Shanta puncture immediately after or during the administration of Metamizole may lead to falsely low results. Testing should be performed immediately prior to Metamizole dosing. Performed By: #### L ACT #### [place] [address] LIPASEon 04-27-2020 Lipase [Catalytic activity/Vol] 8 U/L Low 9 - 82 [facility] Comment on above: Result Comment: Shanta puncture immediately after or during the administration of Metamizole may lead to falsely low results. Testing should be performed immediately prior to Metamizole dosing. N-jenwvf-p-benzoquinone imine (metabolite of Acetaminophen) will generate erroneously low results in samples for patients that have taken toxic doses of acetaminophen. Performed By: #### L IPAS #### [place] [id number] Patient Profile - Adult v2on 04-27-2020 Patient Profile - Adult v2 Profile: Initial Info: How to be AddressedDebbie Spoken Language PreferredEnglish (1) Source of Informationpatient Are you currently using the Personal Electronic Health Record or Amplifinityno Are you interested in learning more about [facility] for the management of your healthnot at this time Stated Reason for Admissionbloody stools Wants Family/Rep Notified of Admissionno Notify PCPdo not notify PCP Informed of Patient Visiting Rightsyes [facility] Patient Belongingsremains with patient Patient Belongings Remaining with Patientnight gown, cellphone, glasses, purse, discover card, kohls card Medications Brought to Hospitalno General Health: Weight in kg56.2 kilogram(s) Weight in thm550.8 pound(s) Height in feet5 feet Height in inches1 inch(es) Height in cm154.9 centimeter(s) BMI (kg/m2)23.422 square meter Weight Methodactual (measured) Scale Typebed Height Methodstated [facility] Based Care: How would you [...] Withspouse Living Arrangementshouse Resource/Environmental Concernsnone Anticipated [place] Services Anticipated at Transitionnone Significant IndicatorsComplete Information [...] Risk Screen - Adult Emergency 27-Apr-2020 13:25 [facility] Provider Note - ED v2on 07- Provider Note - ED v2 Provider Note [...] with IV hydration. HISTORY OF PRESENTING ILLNESS RAMONE is a 64 year old Female and was seen by me at 27-Apr-2020 12:40. The historian is the patient. Triage Information: Most recent Vital Sign Value Date Temp (F): 98.4 04-27-2020 13:18 Temp (C): 36.8 04-27-2020 13:18 Heart Rate (beats/min): 87 04-27-2020 13:18 Respirations (breaths/min): 04-27-2020 13:18 SpO2 (%): 98 04-27-2020 13:18 BP Systolic (mm Hg): 142 04-27-2020 13:18 BP Diastolic (mm Hg): 93 04-27-2020 13:18 PAST MEDICAL HISTORY ATTESTATION: I have reviewed and confirmed nurse's/medic's notes for patient's medications, allergies, medical history, and surgical history ALLERGIES/INTOLERANCES : Allergy Allergen: Neosporin Type: Drug Reaction: Rash [...] Reference Range: STRAW,YELLOW Appearance, Urine CLEAR Specific [place], Urine 1.021 pH, Urine 5.0 Protein, Urine [...] SIGNS: T PRBP SpO2O2(LPM) %FiO2 Method 27-Apr-2020 15:53:[id number]/78 97 27-Apr-2020 15:38:00-4735894/72 98 27-Apr-2020 13:18:00-36.64352399/9 3 98 room air, no respiratory support 27-Apr-2020 12:38:00-36.45882941/9 3 98 room air, no respiratory support CLINICAL IMPRESSION Diagnosis/Annotation: ED Dx Name:Colitis, nonspecific Code:K52.9 Dispostion: hospitalized Admit to: [facility]. Admitting Considerations: ATTESTATION CRITICAL CARE TIME Is this a critically ill patient: no Electronic Signatures: Flor Noe () (Signed 27-Apr-2020 16:21) Authored: Provider Note - ED v2 Last Updated: 27-Apr-2020 16:21 by Flor Noe () [facility] Risk Screen - Adult Emergenc yon 04-27-2020 Risk Screen - Adult Emergency Preferred Language: Preferred Language: Preferred Language for Discussing Health Care (patient/designee)Engl lucy Advanced Directives: Advance Directive/DNRno Family Violence Adult: Abuse Screen: Are you or have you been threatened or abused physically, emotionally, or sexually by anyoneno Learning Assessment (Patient): Learning Assessment (Patient): Patient is Able to be Assessed for Learningyes Factors Influencing Readiness to Learnn/a Factors that Impact Ability to Learnnone Devices/Methods Used to Communicatenone Learning Preferencesverbal instruction; written material Cultural Considerationsnone Developmental Considerationsnone Yazdanism Considerationsnone Learning Assessment (Other Learner): Learning Assessment (Other Learner): Other learner availableno Pressure Injury/TB/Substance: Pressure Injury: Do you have a coughno Substance Use Current or Former HistoryYES: Alcohol Alcohol Usedaily Admission Risk Screen: Significant IndicatorsComplete CAGE: CAGE: Is this an injured patient at a Trauma Center ([facility]/[place]): no Electronic Signatures: Analilia Milan (RN) (Signed 27-Apr-2020 13:25) Authored: Preferred Language, Advanced Directives, Family Violence Adult, Learning Assessment (Patient), Learning Assessment (Other Learner), Pressure Injury/TB/Substance, CAGE Last Updated: 27-Apr-2020 13:25 by Analilia Milan (RN) [facility] Triage - EDon 04-27-2020 Triage - ED Chart Review: CHIEF COMPLAINT RAMONE GONZALES is a Female patient with a [...] BMI (kg/m2): 21.880 Calculated BSA (m2) 1.50 [place] Coma Scale: Best Eye Response: (E4) spontaneous Best Motor Response: (M6) obeys commands Best Verbal Response: (V5) oriented [place] Score: 15 Allergies: yes Patient has homicidal [...] Accompanied By: self Language: Spoken Language Preferred: Malaysian Reading Language Preferred: Malaysian Present on Arrival: Device Present on Arrival to ED: no PRIMARY ASSESSMENT ARMONE GONZALES's primary assessment is Within Defined Limits. [...] 27-Apr-2020 13:24 by Analilia Milan (ALANA) Normal [facility] URINALYSIS WITH CULTURE IF I NDICATEDon 04-27-2020 Appearance (U) CLEAR Normal CLEAR [facility] Comment on above: Performed By: #### U ARFX #### [address] [address] Bilirubin (U) [Mass/Vol] Negative Normal NEGATIVE [facility] Comment on above: Performed By: #### U ARFX #### [address] [address] BLOOD Negative Normal NEGATIVE [facility] Comment on above: Performed By: #### U ARFX #### [address] [address] Color (U) Yellow Normal STRAW,YELLOW [facility] Comment on above: Performed By: #### U ARFX #### [address] [place] [address] Glucose [Mass/Vol] Negative Normal NEGATIVE [facility] Comment on above: Performed By: #### U ARFX #### [place] [address] Ketones Ql (U) Negative Normal NEGATIVE [facility] Comment on above: Performed By: #### U ARFX #### [place] [address] Leukocyte esterase Test strip Ql (U) Negative Normal NEGATIVE [facility] Comment on above: Performed By: #### U ARFX #### [place] [address] Nitrite Ql (U) Negative Normal NEGATIVE [facility] Comment on above: Performed By: #### U ARFX #### [place] [address] pH (Bld) 5.0 Normal 5.0 - 8.0 [facility] Comment on above: Performed By: #### U ARFX #### [place] [address] Protein (U) [Mass/Vol] Negative Normal NEGATIVE [facility] Comment on above: Performed By: #### U ARFX #### [place] [address] Specific gravity (U) [Rel density] 1.021 Normal 1.005 - 1.035 [facility] Comment on above: Performed By: #### U ARFX #### [place] [address] Urobilinogen Qn (U) <2.0 Normal 0.0 - 1.9 [facility] Comment on above: Performed By: #### U ARFX #### [place] [address] Lab Specimen Source Normal [facility] Comment on above: Performed By: #### U ARFX #### [place] [id number] OCT OPTIC NERVE CIRRUS OU (B OTH EYES) [facility] Vital Signs Date Time Vital Sign Value Performing Clinician Faci lity 07-03-2025 11:21-0400 Body temperature 98.3 [degF] Dr. Berta Mar DO Work Phone: [facility] 07-03-2025 11:21-0400 Diastolic blood pressure 60 mm[Hg] Dr. Berta Mar DO Work Phone: [facility] 07-03-2025 11:21-0400 Heart rate 84 /min Dr. Berta Mar DO Work Phone: [facility] 07-03-2025 11:21-0400 Respiratory rate 18 /min Dr. Berta Mar DO Work Phone: [facility] 07-03-2025 11:21-0400 SaO2% (BldA) [Mass fraction] 97 % Dr. Berta Mar DO Work Phone: [facility] 07-03-2025 11:21-0400 Systolic blood pressure 109 mm[Hg] Dr. Berta Mar DO Work Phone: [facility] 07-03-2025 09:15-0400 Body mass index (BMI) [Ratio] 22.8 kg/m2 Dr. Berta Mar DO Work Phone: [facility] 07-03-2025 09:15-0400 Body weight 54.[address] Berta Mar DO Work Phone: [facility] 07-03-2025 08:17-0400 Body height 154.[address] Berta Mar DO Work Phone: [facility] Encounters Encounter Date Encounter Type Care Provider Facility Start: 07-10-2025 End: 07-10-2025 ambulatory Berta Mar Facility:[facility] Start: 07-03-2025 End: 07-03-2025 Emergency department patient visit Dr. Dennise Mobley DO -Emergency Department Work Phone: Start: 10-10-2024 End: 10-10-2024 ambulatory BERTA MAR Facility:[facility] Start: 10-10-2024 End: 10-10-2024 Patient encounter procedure Lakshmi Andersonmilena OD Work Phone: Optometry Comment on above: Presbyopia (Primary Dx) Start: 09-18-2024 End: 09-18-2024 ambulatory BERTA MAR Facility:[facility] Start: 09-18-2024 End: 09-18-2024 Patient encounter procedure Kee Marrero OD Work Phone: Optometry Comment on above: Glaucoma suspect of both eyes (Primary Dx); Ocular hypertension, bilateral; Combined form of senile cataract of both eyes; Dermatochalasis of both upper eyelids; Hyperopia, bilateral; Regular astigmatism, bilateral; Presbyopia Start: 04-03-2024 Documentation procedure Mammog katalina Coordinator [facility] Department Start: 04-03-2024 Letter encounter Mammography Coordinator [facility] Department Start: 04-03-2024 End: 04-03-2024 ambulatory BERTA MAR Facility:[facility] Start: 04-03-2024 End: 04-03-2024 Subsequent hospital visit by physician Berta Mar DO Work Phone: Mammogram Start: 09-06-2023 End: 09-06-2023 Patient encounter procedure Kee Marerro OD Work Phone: Optometry Comment on above: [...] bilateral; Presbyopia Start: 06-29-2022 End: 06-29-2022 ambulatory [facility] Work Phone: Start: 06-29-2022 End: 06-29-2022 Patient encounter procedure [facility] Start: 06-04-2010 End: 07-04-2012 Patient encounter status Berta Mar DO Work Phone: [facility] Procedures Date Procedure Procedure Detail Performing Clinician Start: 07-03-2025 Urnls dip stick/tabl et reagent auto microscopy Dr. Berta Mar DO Work Phone: Start: 07-03-[address] 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, bilateral Expected: 09/08/2026 [facility] Work Phone: Comment on above: Expected: 09/08/2026 Start: 01-14-2026 End: 01-14-2026 Patient encounter procedure 01/14/2026 1:00 PM EDT Office Visit [facility] [address] [place] [address] Kee Marrero II, OD [address] [place] [address] eye exam/[facility] Comment on above: eye exam/[employer] Start: 08-26-2025 OCT OPTIC NERVE CIRR US OU (BOTH EYES) OCT OPTIC NERVE CIRRUS OU (BOTH EYES) [facility] Imaging Routine Glaucoma suspect of both eyes Expected: 08/26/2025 [facility] Work Phone: Comment on above: Expected: 08/26/2025 Start: 08-26-2025 VISUAL FIELD 24-2 OU (BOTH EYES) VISUAL FIELD 24-2 OU (BOTH EYES) [facility] Imaging Routine Glaucoma suspect of both eyes Expected: 08/26/2025 [facility] Work Phone: Comment on above: Expected: 08/26/2025 Start: 07-11-2025 Screening for malign ant neoplasm of colon Cologuard (FIT-DNA) [facility] Start: 07-03-2025 End: 07-03-2025 [facility] Start: 04-03-2025 Screening for malign ant neoplasm of breast Mammogram Screening [facility] Start: 10-09-2024 Advance Directive Discussion Advance Directive Discussion [facility] Start: 06-09-2024 Covid-19 Vaccine ( season) Covid-19 Vaccine ( season) [facility] Start: 06-09-2024 Influenza vaccination [facility] Start: 10-09-2023 Advance Directive Discussion Advance Directive Discussion [facility] Start: 10-09-2023 Behavioral Health Screening Behavioral Health Screening [facility] Start: 06-09-2023 Covid-19 Vaccine ( season) Covid-19 Vaccine ( season) [facility] Start: 06-09-2023 Influenza vaccination Influenza Vacc ine (#1) [facility] Start: 04-29-2023 Diabetes Screening Diabetes Screenin g [facility] Start: 10-09-2022 Advance Directive Discussion Advance Directive Discussion [facility] Start: 10-09-2022 Depression Assessment Depression Ass essment [facility] Start: 07-12-2022 Screening for malign ant neoplasm of colon Colorectal Cancer Screening [facility] Start: 06-09-2022 Influenza vaccination INFLUENZA (#1) [facility] Start: 10-09-2021 ADVANCE DIRECTIVE DISCUSSION ADVANCE DIRECTIVE DISCUSSION [facility] Start: 10-09-2021 [facility] Start: 01-01-2020 Mammography [facility] Start: 01-01-2020 Screening for malign ant neoplasm of breast Mammogram Screening [facility] Start: 2018 BONE DENSITY BONE DENSITY [facility] Start: 2018 Bone Density Screening Bone Density Screening [facility] Start: 2018 Pneumococcal Vaccine : 65+ (1 - PCV) Pneumococcal Vaccine: 65+ (1 - PCV) [facility] Start: 2018 Pneumococcal Vaccine : 65+ (1 of 1 - PCV) Pneumococcal Vaccine: 65+ (1 of 1 - PCV) [facility] Start: 2018 PNEUMOCOCCAL: 65+ (1 - PCV) PNEUMOCOCCAL: 65+ (1 - PCV) [facility] Start: 2018 Screening for osteoporosis Bone Density Screening [facility] Start: 09-13-2016 Lipid 1996 panel - S edis or Plasma Lipid Screening [facility] Start: 09-13-2016 Lipid panel Lipid Screening [facility] Start: 09-13-2016 LIPID SCREEN LIPID SCREEN [facility] Start: 09-13-2014 DIABETES SCREEN DIABETES SCREEN [facility] Start: 09-13-2014 Diabetes Screening Diabetes Screenin g [facility] Start: 2013 RSV Vaccine (1 - 1-d ose 60+ series) RSV Vaccine (1 - 1-dose 60+ series) [facility] Start: 10-09-2011 Colonoscopy COLONOSCOPY [facility] Start: 10-09-2011 COLORECTAL CANCER SCREENING COLORECTAL CANCER SCREENING [facility] Start: 10-09-2011 Screening for malign ant neoplasm of colon Colonoscopy [facility] Start: 2003 Pneumococcal Vaccine : 50+ (1 of 1 - PCV) Pneumococcal Vaccine: 50+ (1 of 1 - PCV) [facility] Start: 2003 SHINGRIX VACCINE (1 of 2) SHINGRIX VACCINE (1 of 2) [facility] Start: 1998 COLOGUARD (FIT-DNA) COLOGUARD (FIT-D NA) [facility] Start: [address] COLONOGRAPHY [facility] Start: 1998 FECAL OCCULT BLOOD FECAL OCCULT BLOO D [facility] Start: 1998 Screening for malign ant neoplasm of colon [facility] Start: 1998 SIGMOIDOSCOPY SIGMOIDOSCOPY [facility] Start: 1972 Urine microalbumin profile [facility] Start: 1971 Anxiety Screening Anxiety Screening [facility] Start: 1971 Depression Screening Depression Scre ening [facility] Start: 1971 HEPATITIS C SCREENING HEPATITIS C [facility] Start: 1971 Hepatitis C screening Hepatitis C [facility] Start: 1955 COVID-19 VACCINE (#1) COVID-19 VACCI NE (#1) [facility] Patient Education ED Back Spasm, No Trauma ED Dehydration (Adult) [facility] Work Phone: Payers Date Payer Category Payer Self-pay [id number] 2021 Medicare AET[employer] MEDICARE A ETNA MEDICARE PPO [id number] 2021-Present [phone] [address] [place] [address] PPO [id number] 2021 Private Health Insurance [id number] 2018 Unknown EYE CARE PLAN OF [employer] [id number] 06/09/2018-Present [address] [place] [address] Indemnity [id number] 06-09-2018 Unknown [id number] 09-20-2013 Unknown [id number] Unknown [id number] Unknown [id number] Social History Date Type Detail Facility [facility] Work Phone: Start: 1955 Sex Assigned At Female [facility] Start: 07-04-2012 [facility] tobacco [facility] Work Phone: Start: 07-04-2012 Tobacco use and exposure Smokeless tobacco non-user [facility] Work Phone: Start: 08-30-2022 End: 10-10-2024 Alcohol intake Current drinker of alcohol (finding) [facility] Start: 1955 Sex Assigned At Not on file [facility] Start: 08-20-2022 End: 08-30-2022 Exposure to SARS-CoV-2 (event) Not sure [facility] Start: 09-06-2023 End: 04-03-2024 History of Social function [facility] Start: 09-06-2023 End: 04-03-2024 Tobacco use panel [facility] National Score (1-100), lower number is lower risk 59 [facility] Start: 07-03-2025 Tobacco smoking stat [facility] Smoker (finding) [facility] Clinical Notes 12-17-2010 to 07-03-2025 Patient InstructionsLakshmi Santiago, OD - 10/10/2024 11:37 AM ESTPatient InstructionsKee Marrero II, OD - 09/18/2024 1:52 PM ESTLetter - Coordinator, Mammography - 04/03/2024 8:38 PM EDT Note Date & Type Note Facility 07-03-2025 Discharge summary [facility] 10-10-2024 Instructions Lakshmi Santiago, OD - 10/10/2024 [...] otherwise monitor yearly. documented in this encounter [facility] 10-10-2024 Note HNO ID: [id number] Author: LAKSHMI SANTIAGO OD Service: ? Author Type: INFORMATICS SPECIALIST Type: Progress Notes Filed: 10/10/2024 12:02 Note [...] Santiago, OD October 10, 2024 12:02 PM [facility] 10-10-2024 History of Presen t illness [...] 2024 12:02 PM documented in this encounter [facility] 09-18-2024 Instructions Kee Marrero II, OD [...] by others. I have seen and examined Ramone Gonzales. I have discussed the case and the management of this patient's care with the Resident/Fellow, if applicable. I also have reviewed and agree with the assessment and plan as stated above and agree with all of its relevant components. documented in this encounter [facility] 09-18-2024 Note HNO ID: [id number] Author: KEE MARRERO II, OD Service: ? Author Type: INFORMATICS SPECIALIST Type: Progress Notes Filed: 09/18/2024 14:13 Note [...] by others. I have seen and examined Ramone Gonzales. I have discussed the case and the management of this patient's care with the Resident/Fellow, if applicable. I also have reviewed and agree with the assessment and plan as stated above and agree with all of its relevant components. [facility] 09-18-2024 History of Presen t illness [...] by others. I have seen and examined Ramone Ames Nitesh. I have discussed the case and the management of this patient's care with the Resident/Fellow, if applicable. I also have reviewed and agree with the assessment and plan as stated above and agree with all of its relevant components. documented in this encounter [facility] 09-18-2024 Note Date of Procedure 09/18/2024. Brand Ambassador Promotional Model Information Tank Truck Operator: marilee. Start time: 1:08 PM. Reliability Right Eye Good. Left Eye Good. Interpretation Right Eye Normal. Left Eye Normal. Interval Change Right Eye Stable. Left Eye Stable. Notes Monitor yearly [facility] 09-18-2024 Note Date of Procedure 09/18/2024. Brand Ambassador Promotional Model Information Tank Truck Operator: marilee. Start time: 1:08 PM. NFL Interpretation Right Eye Inferior loss, Temporal loss. Left Eye Temporal loss. Ganglion Cell Layer Thickness Right Eye Inferior loss. Left Eye Normal. Interval Change Right Eye Stable. Left Eye Stable. Notes Continue yearly observation [facility] 04-03-2024 Note Formatting of this n ote might be different from the original. April 04, 2024 PID: [id number] Ramone Gonzales [address] [place] [address] Dear Ms. Taylornaseem, We are pleased to [...] report will be kept on file at [facility] as part of your permanent medical record and are available for your continuing care. Thank you for allowing us to help in meeting your health care needs. Sincerely, Dr. Milan Interpreting Radiologist [facility] (Normal over 40) [facility] 04-03-2024 Miscellaneous Notes April 04, 2024 PID: [id number] Ramone Valle Claudianaseem [facility] [place] [address] Dear Jose Raul Nitesh, We are pleased to inform you that [...] report will be kept on file at [facility] as part of your permanent medical record and are available for your continuing care. Thank you for allowing us to help in meeting your health care needs. Sincerely, Dr. Milan Interpreting Radiologist [facility] (Normal over 40) documented in this encounter [facility] 04-03-2024 History of Presen t illness Narrative Radiology Service Progress Note PATIENT NAME: Ramone Gonzales DATE OF SERVICE: April 03, 2024 [...] PATIENT PRESENTS WITH AN IMPLANTABLE OR ATTACHED CIGARETTE MAKER: No RADIOLOGY DEPARTMENT: Mammography PERIPHERAL IV DATA: Not applicable SIGNED BY: Dionna Negron April 03, 2024 11:40 AM documented in this encounter [facility] 04-03-2024 Note HNO ID: [id number] Author: MELODY CASTRO Mammo Tech Service: ? Author Type: Technologist Type: Progress Notes Filed: 04/03/2024 11:40 Note Text: Radiology Service Progress Note PATIENT NAME: Ramone Gonzales DATE OF SERVICE: April 03, 2024 [...] PATIENT PRESENTS WITH AN IMPLANTABLE OR ATTACHED CIGARETTE MAKER: No RADIOLOGY DEPARTMENT: Mammography PERIPHERAL IV DATA: Not applicable SIGNED BY: Dionna Negron April 03, 2024 11:40 AM [facility] 09-06-2023 Instructions Kee Marrero II, OD [...] by others. I have seen and examined Ramone Gonzales. I have discussed the case and the management of this patient's care with the Resident/Fellow, if applicable. I also have reviewed and agree with the assessment and plan as stated above and agree with all of its relevant components. Kee Marrero II, OD documented in this encounter [facility] 09-06-2023 History of Presen t illness [...] by others. I have seen and examined Ramone Gonzalse. I have discussed the case and the management of this patient's care with the Resident/Fellow, if applicable. I also have reviewed and agree with the assessment and plan as stated above and agree with all of its relevant components. Kee Marrero II, OD documented in this encounter [facility] 08-30-2022 Instructions Keechalo Marreor II, OD - 08/30/2022 3:00 PM EST [...] by others. I have seen and examined Ramone Gonzales. I have discussed the case and the management of this patient's care with the Resident/Fellow, if applicable. I also have reviewed and agree with the assessment and plan as stated above and agree with all of its relevant components. Kee Marrero II, OD documented in this encounter [facility] 08-30-2022 History of Presen t illness [...] by others. I have seen and examined Ramone Gonzales. I have discussed the case and the management of this patient's care with the Resident/Fellow, if applicable. I also have reviewed and agree with the assessment and plan as stated above and agree with all of its relevant components. Kee Marrero II, OD documented in this encounter [facility] 12-17-2010 History of Past i llness Narrative Problem Noted Date Resolved Date Syncope and collapse 12/17/2010 07/12/2016 Overview: Multiple times, with illness -- vomiting is a well-established trigger Routine general medical exam ination at a health care facility 06/04/2010 07/04/2012 Overview: 06/04/2010, from [facility] Routine gynecological examination 06/04/2010 07/04/2012 Overview: [facility], SALLIE Carbone documented as of this encounter (statuses as of 08/30/2022) [facility] History of Past illness Narrative* Problem Noted Date Diagnosed Date Resolved Date Syncope and collapse 12/17/2010 016 Overview: Multiple times, with illness -- vomiting is a well-established trigger Routine general medical exam ination at a health care facility 06/04/2010 07/04/2012 Overview: 06/04/2010, from [facility] Routine gynecological examination 06/04/2010 07/04/2012 Overview: [facility], Edmar Carbone documented as of this encounter (statuses as of 09/07/2023) [facility] Dennise [facility] Note Date/Time July 03, 2025 11:38am [facility] Medical Records Department [address] [place] [address] Emergency Department Summary 07/03/25 MR#: [id number] Acct: [id number] Name: RAMONE GONZALES Rep #:[id number] : [id number] 70 From: Dennise [place] PCP: Dr. Berta Mar, DO Status:DEP ER Location: ED HPI History of Present Illness Chief Complaint: Back Informant: patient and spouse/S.O. Narrative Narrative: Patient is a 70-year-old female with no significant past medical history presenting with back and abdominal pain as well as episode of lightheadedness. Patient states on Monday, 3 days ago she was helping her move things andwas doing a lot of heavy lifting. But now she started to get sore in her lower back. On Monday she states that pain became more severe it is in her lower andmid back and wraps around to her abdomen. She has not been sleeping well at night because of this. The symptoms are persisting. She feels that she is getting spasms. She is the pain is even going up into her neck. It is worse with movements and certain positions. She has been taking back and body (she believes its acetaminophen) with some help. She notes this morning she started to feel lightheaded and had to lay on the floor. She also states that she has not been feeling well she has not been eating or drinking much. She has had nausea and chills. She has had headaches. Denies any URI symptoms. Denies anyurinary symptoms. Denies any fevers. No vomiting or change in her bowel movements. States he had a normal bowel movement after lunch yesterday. Deniesany chest pain or shortness of breath. Due to the severity of her symptoms and her getting lightheaded this morning she came in for further evaluation. She denies any swelling of her legs. No numbness or tingling appreciated. PFSH PFSH Home Medications ?Medication ?Instructions ?Recorded ?Last Taken ?Type cyclobenzaprine 10 mg tablet 10 mg PO TID PRN Muscle S pasm #20 07/03/25 Unknown Rx TABLETS ondansetron 4 mg disintegrating 4 mg PO Q8H PRN PRN Na usea #10 tabs 07/03/25 Un known Rx tablet Allergy/AdvReac Type Severity Reaction Status Date / Time No Known Allergies Allergy Verified 07/03/25 08:17 ROS ROS ED Constitutional Constitutional ED: Reports chills; Denies fever(s) Eyes Eyes: Denies change in vision Respiratory/Chest Respiratory/Chest: Denies dyspnea Gastrointestinal Gastrointestinal: Reports abdominal pain Genitourinary Genitourinary ED: Denies dysuria or urinary frequency Musculoskeletal Musculoskeletal: Reports back pain, myalgias and neck pain Integumentary Denies rash Neurologic Neurologic: Reports headache(s) and weakness; Denies paresthesias Psychiatric Psychiatric: Denies anxiety Hematologic/Lymphatic Hematologic/Lymphatic: Denies easy bleeding or easy bruising EXAM Physical Exam Const Vital Signs: 07/03/25 08:17 07/03/25 10:17 07/03/25 10:37 Temperature 97.1 F L 97.7 F L Temperature Source Temporal Temporal Pulse Rate 97 87 Pulse Rate [Lying] 82 Pulse Rate [Sitting (for 1 minute prior to obtaining)] 83 Pulse Rate [Standing (for 1 minute prior to obtaining)] 93 Respiratory Rate 14 18 Blood Pressure 126/78 H 119/66 Blood Pressure [Lying] 113/63 Blood Pressure [Sitting (for 1 minute prior to obtaining)] 99/77 Blood Pressure [Standing (for 1 minute prior to obtaining)] 108/73 Blood Pressure Mean 94 83 Blood Pressure Mean [Lying] 79 Blood Pressure Mean [Sitting (for 1 minute prior to obtaining)] 84 Blood Pressure Mean [Standing (for 1 minute prior to obtaining)] 84 Pulse Ox 99 Oxygen Delivery Method Room Air Room Air Positive well nourished General Appearance ED: NAD HEENT Reports dry mucous membranes HEENT Narrative: Normal oropharynx. No nasal congestion present Mouth ED: Yes dry mucous membranes Mouth: dry mucous membranes Eyes PERRL Neck supple and no JVD Resp normal respiratory effort and clear to auscultation bilaterally Cardio regular rate, regular rhythm and no murmurs Cardio Narrative: 2+ radial and PT pulses present GI normal to inspection, nondistended, normoactive bowel sounds and soft to palpation Inspection: Negative for abdominal distention Palpation: Negative for tender or guarding Back/Spine normal to inspection Back/Spine Narrative: No midline spinal tenderness presents, diffuse muscle tenderness and tightness present General Back: Negative for CVA tenderness Cervical Spine: paracervical muscle tenderness Thoracic Spine / Upper Back: paraspinal muscle tenderness Lumbar Spine / Lower Back: ROM limited Neuro oriented x3 and no sensory deficits noted Sensorium / Orientation: alert Motor Exam: strength 5/5 throughout Psych mental status grossly normal Skin no rashes or lesions noted and no wounds MDM MDM MDM Narrative Medical decision making narrative: Patient is evaluated for myalgias and episode of lightheadedness. Notes since she has been having these body aches has been feeling good and is not been eating as much which makes her feel nauseous. Today had an episode of lightheadedness and eniluracil to the ground. Differential includes dehydration, SOWMYA, rhabdomyolysis, arrhythmia, deferred abdominal pain, pancreatitis and urinary tract infection. Patient given IV fluids and Toradol in the emergency room. Workup including CBC, CMP, lipase and urinalysis is obtained. CBC largely normal with no leukocytosis and normal hemoglobin. No left shift present. BMP shows normal BUN and creatinine however sure anion gap is [id number] and her bicarb is low at 16.4. This is consistent with some dehydration. After liter of IV fluids orthostatic vital signs obtained. They are negative. She no longer feels lightheaded but continues to have some bodyaches. Will be given a dose of flexeril and DC'd home. Discomfortable this plan of care. Is counseled on the risk of increased confusion, loss of balance, sleepiness associated with muscle relaxers. Verbalizes understanding of this. is with her. Given return precautions. Counseled on pushing fluids at home as well as alternate ibuprofen and Tylenol for pain relief. Is also given a prescription for Zofran to be used as needed. Lab Data Attestation: I reviewed the patient's lab results. Labs: Laboratory Results - last 24 hr 07/03/25 07/03/25 09:09 09:35 WBC 6.4 RBC 3.80 L Hgb 12.2 Hct 34.7 L MCV 91.3 MCH 32.1 H MCHC 35.2 RDW Std Deviation 40.7 RDW Coeff of Sylvie 12.1 Plt Count 187 MPV 10.1 Immature Gran % (Auto) 0.300 Neut % (Auto) 77.7 H Lymph % (Auto) 11.9 L [place] % (Auto) 9.4 Eos % (Auto) 0.2 Baso % (Auto) 0.5 Absolute Neuts (auto) 5.0 Absolute Lymphs (auto) 0.76 L Nucleated RBC % 0 Sodium 134 Potassium 3.8 Chloride 99 Carbon Dioxide 16.4 L Anion Gap 18 H BUN 8 Creatinine 0.85 Estim Creat Clear Calc 45.14 L Est GFR (MDRD) Non-Af 73 BUN/Creatinine Ratio 9.4 L Glucose 135 H Calcium 9.3 Total Bilirubin 0.45 AST 21 ALT 16 Alkaline Phosphatase 41 Total Creatine Kinase 63 Total Protein 7.6 Albumin 4.3 Globulin 3.3 Albumin/Globulin Ratio 1.3 Lipase 20 Urine Color Yellow Urine Clarity Clear Urine pH 7.0 Ur Specific [place] 1.010 Urine Protein 15 H Urine Glucose (UA) Normal Urine Ketones Negative Urine Occult Blood Negative Urine Nitrite Negative Urine Bilirubin Negative Urine Urobilinogen Normal Ur Leukocyte Esterase Negative Urine RBC 0 SEEN Urine WBC 0 SEEN Ur Squamous Epith Cells 0 SEEN Urine Bacteria 0 SEEN Urine Mucus 0 SEEN Rhythm Strip Rhythm Strip: Sinus Rhythm Rate: 95 Ectopy: None EKG Initial EKG: Attestation: I personally reviewed and interpreted this EKG as follows: Interpretation: Sinus Rhythm Comments: Normal sinus rhythm at a rate of 95 bpm with PACs Left axis deviation Normal intervals Normal ST segment Prior EKG tracings: not available for review Prior: No Prior Discharge Plan Triage Chief Complaint: Back ED Provider: Dennise Mobley Dx/Rx/DC Orders Clinical Impression: Back muscle spasm, Lightheaded, Acute dehydration Instructions: ED Back Spasm, No Trauma, ED Dehydration (Adult) Prescriptions: New cyclobenzaprine 10 mg tablet 10 mg PO TID PRN (Reason: Muscle Spasm) Qty: 20 0RF ondansetron 4 mg tablet,disintegrating 4 mg PO Q8H PRN PRN (Reason: Nausea) Qty: 10 0RF Primary Care Provider: Berta Mar Referrals: Berta Mar DO [Primary Care Provider, [facility]] Activity Restrictions/Additional Instructions: Your workup today showed signs of dehydration were otherwise normal. I would recommend alternate ibuprofen and Tylenol for further pain control. You been prescribed a muscle relaxer. Make sure you are pushing fluids at home and eating regular if meals/snacks. If you develop chest pain or worsening symptoms or you have a fever please return the emergency room. Print Language: Malaysian Disposition Disposition: Home, Self Care What to do if you have Problems For any increased pain, shortness of breath, bleeding, nausea or vomiting, chestpain, or any unexpected problems, contact your Primary Care Provider. Call [facility] ([phone]) or report to the closest Emergency Room. Call 911 if necessary. 07/03/25 1544 <Electronically signed by Dennise Mobley DO> Cosigner Signature (if applicable): CC: Dr. 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 Preglaucoma, unspecified Ocular hypertension, 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 of 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 Hyperopia, bilateral Regular astigmatism, left eye Presbyopia documented in this [facility] Diagnosis 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 I would recommend alternate ibuprofen and Tylenol for further pain control. You been prescribed a muscle relaxer. Make sure you are pushing fluids at home and eating regular if meals/snacks. If you develop chest pain or worsening symptoms or you have a fever please return the emergency room.[facility] Work Phone: Reason for referral (narrative)No reason for referral information [facility]WAk[facility] Work Phone: Summary Purpose Family History No Family History Records FoundNo Family History Records FoundNo Family History Records Found Advance Directives No Advanced Directives Records Found Advance Directive Response Recorded Date/ Time Do you have a Healthcare Power of Web Content Specialist? No July 03, 2025 11:36am Hospital Course Note Send Summary: Discharge Summ bry Providers: Provider RoleProvider Name AttendingBrian Kaur Note Recipients: Berta aMr DO - [phone] [] Discharge: Summary: Admission Date: .27-Apr-2020 12:34:00 Discharge Date: 29-Apr-2020 Attending Physician at Discharge: Brian Kaur Admission Reason: Abdominal pain with nausea and vomiting and bloody diarrhea Final Discharge Diagnoses: Colitis, acute, Food poisoning, Procedures: 1. CT of the abdomen and pelvis 2. GI consultation Condition at Discharge: Satisfactory Disposition at Discharge: .Home Vital Signs: T PRBPSpO2 [id number]/7797% Date/Time04/29 8: 8: 8: 8: 8:27 Range(36.5C [...] Given 09/06/2023 3:30 PM EST 1 Drop Chief Complaint and Reason for Visit Chief Complaint Admit Date muscle strain July 03, 2025 8:16am Additional Source Comments INFORMATION SOURCE (unrecogn ized section and content) DATE CREATED AUTHOR 05/07/2020 [facility] DATE CREATED AUTHOR AUTHOR'S ORGANIZ ATION 10/17/2024 [facility] DATE CREATED AUTHOR AUTHOR'S ORGANIZ ATION 08/04/2025 [facility] Goals (unrecognized section and content) Goals may be documented in a n alternate sectionGoals may be documented in an alternate section Source Comments (unrecognize d section and content) In the event this informatio n is protected by the Federal Confidentiality of Alcohol and Drug Abuse Patient Records regulations: The Federal rules restrict any use of the information to criminally investigate or prosecute any alcohol or drug abuse patient.[facility] the event this information is protected by the Federal Confidentiality of Alcohol and Drug Abuse Patient Records regulations: The Federal rules restrict any use of the information to criminally investigate or prosecute any alcohol or drug abuse patient.[facility] the event this information is protected by the Federal Confidentiality of Alcohol and Drug Abuse Patient Records regulations: The Federal rules restrict any use of the information to criminally investigate or prosecute any alcohol or drug abuse patient.[facility] the event this information is protected by the Federal Confidentiality of Alcohol and Drug Abuse Patient Records regulations: The Federal rules restrict any use of the information to criminally investigate or prosecute any alcohol or drug abuse patient.[facility] the event this information is protected by the Federal Confidentiality of Alcohol and Drug Abuse Patient Records regulations: The Federal rules restrict any use of the information to criminally investigate or prosecute any alcohol or drug abuse patient.[facility] the event this information is protected by the Federal Confidentiality of Alcohol and Drug Abuse Patient Records regulations: The Federal rules restrict any use of the information to criminally investigate or prosecute any alcohol or drug abuse patient.[facility] Reason for Visit (unrecogniz ed section and content) Reason Comments Glaucoma Suspect Evaluation Ocular Hypertension Evaluation Cataract Evaluation Reason Comments Cataract Evaluation Glaucoma Suspect Evaluation Ocular Hypertension Evaluation Reason Comments Glaucoma Suspect Evaluation Cataract Evaluation Ocular Hypertension Evaluation Reason Comments Refractive evaluation Care Teams (unrecognized sec tion and content) Topper Packer Relationship Specialty Start Date End Date Berta Mar DO [address] [place] [address] PCP - General Family Medicine 06/25/20 Topper Packer Relationship Specialty Start Date End Date Berta Mar DO [address] [place] [address] PCP - General Family Medicine 06/25/20 Topper Packer Relationship Specialty Start Date End Date Berta Mar DO [address] [place] [address] PCP - General Family Medicine 06/25/20 Topper Packer Relationship Specialty Start Date End Date Berta Mar [address] [place] [address] PCP - General Family Medicine 06/25/20 Topper Packer Relationship Specialty Start Date End Date ZaidBerta DO [address] [place] [address] PCP - General Family Medicine 06/25/20 Topper Packer Relationship Specialty Start Date End Date Zaid Berta Pang DO [address] [place] [address] PCP - General Family Medicine 06/25/20 Team Status: Active Member Role/Relationship Status Dates Dr. Berta Mar DO Primary care physician Active Team Status: Inactive Member Role/Relationship Status Dates Dr. Berta Mar DO Primary care physician Active Start: July 03, 2025 End: July 03, 2025 Dr. Dennise Mobley DO Attending physician Active Start: July 03, 2025 End: July 03, 2025 Dr. Dennise Mobley DO Emergency Depart ent Physician Active Start: July 03, 2025 End: July 03, 2025 FOR RECORDS PERTAINING TO PATIENTS WHO ARE [...] BE BASED ON THE PRIMARY CLINICAL RECORDS. [facility] [employer], [facility]. provides no warranty or guarantee of the accuracy or completeness of information in this document.
[2025-09-10 21:20] VITALS: BP 130/74; PULSE 73; RESP 16; TEMP 36.6; O2SAT 98
[2025-09-10 21:24] VITALS: BMI 22.7
[2025-09-10] MEDS: 0.9% Normal Saline (1000mL) 1,000 ML 75 ML IV (22:13)
[2025-09-10] MEDS: Senna/Docusate Sodium 1 Tablet 2 TABLET PO (22:13)
[2025-09-11 03:28] VITALS: BP 137/84; PULSE 82; RESP 18; TEMP 36.6; O2SAT 95
--- NOTE | 2025-09-11 05:55 | MRI_ITS ---
PROCEDURE: SPINE THORACIC (ROUTINE) 09/11/2025 REASON FOR EXAM: RIGHT PARAVERTEBRAL/LOWER RIB/COSTAL PAIN TECHNIQUE: Procedure Code: MRISPT Modality: MR Procedure: SPINE THORACIC (ROUTINE) Multiplanar and multisequence images were obtained. CONTRAST: None. COMPARISON: None available. FINDINGS: Bone marrow edema at T10 and T11, most marked at T11 vertebral body. There is associated paravertebral soft tissue edema. There is no significant intervertebral disc space edema at T10-T11. The normal thoracic kyphosis is maintained. The thoracic vertebral bodies are normal in height. The thoracic vertebral bodies are normal in alignment. There is no focal bone marrow replacing lesion in the thoracic spine. There is no evidence of thoracic spinal cord signal abnormality. There is no high-grade spinal canal or neural foraminal stenosis in the thoracic spine. Small ruadb-ddojxhb-zvpp-left pleural effusions. MRI/Spine Thoracic (Routine) IMPRESSION: Findings concerning for osteomyelitis of T10 and T11 vertebral bodies without d isc involvement. Lack of contrast lowers sensitivity of the examination. No compression fracture deformity in the thoracic spine. Small zuisy-ourbxht-jyju-left pleural effusions. Reading Location: [id number]
[2025-09-11 06:05] LABS: CRP 18.50 mg/L (0.0-3.0)
--- NOTE | 2025-09-11 07:23 | PCM.PN.HOSP ---
Reason for Visit Chief Complaint: Back pain since June 30, 2025 Subjective Subjective Patient states the pain medicine is helping but is not taking away her pain completely. We did discuss that I would not be able to completely take away her pain but the hope was to minimize it is much possible. It sounds like she is much more comfortable than she was. States that she has had some intermittent infections recently including herpes zoster. She states she had what she thought was maybe a fungal infection with a small fissure between her 2 buttocks but extended to her rectum. This has since healed but she cannot think of any other types of things that could have caused this. She is typically very active and plays [employer] on a regular basis. She has not been able to do that recently due to pain. She is not immunosuppressive baseline and really takes no regular medications Objective Data Objective Data Vital Signs: Vital Signs Temp Pulse Resp BP Pulse Ox O2 Del Method 97.9 F 82 18 137/84 H 95 Room Air 09/11/25 03:28 09/11/25 03:28 09/11/25 03:28 09/11/25 03:28 09/11/25 03:28 09/11/25 03:30 Oxygen Delivery Method Room Air Weight: 54.7 kg Body Mass Index (BMI) 22.7 Intake & Output: Intake and Output for Last 24 Hours 09/09/25 09/10/25 09/11/25 23:59 23:59 23:59 Intake Total 1000 / 1000 Balance 1000 / 1000 Lab / Micro Data 09/10/25 16:17 09/10/25 16:17 Labs: Laboratory Results - last 24 hr 09/10/25 16:17: WBC 8.3, RBC 3.70 L, Hgb 12.0, Hct 33.2 L, MCV 89.7, MCH 32.4 H, MCHC 36.1 H, RDW Std Deviation 41.6, RDW Coeff of Sylvie 12.6, Plt Count 248, MPV 9.7, Immature Gran % (Auto) 0.100, Neut % (Auto) 64.4, Lymph % (Auto) 23.7, Nance % (Auto) 8.4, Eos % (Auto) 2.8, Baso % (Auto) 0.6, Absolute Neuts (auto) 5.3, Absolute Lymphs (auto) 1.96, Nucleated RBC % 0, ESR 18, Sodium 136, Potassium 3.7, Chloride 100, Carbon Dioxide 21.7, Anion Gap 15, BUN 16, Creatinine 0.90, Estim Creat Clear Calc 42.64 L, Est GFR (MDRD) Non-Af 68, BUN/Creatinine Ratio 17.8, Glucose 110 H, Calcium 9.6, Total Bilirubin 0.32, AST 18, ALT 12, Alkaline Phosphatase 54, C-React Prot Ext Range 18.10 H, Total Protein 7.1, Albumin 4.3, Globulin 2.8, Albumin/Globulin Ratio 1.5, Lipase 28 09/10/25 16:20: Urine Color Straw, Urine Clarity Clear, Urine pH 6.5, Ur Specific [place] 1.005, Urine Protein 15 H, Urine Glucose (UA) Normal, Urine Ketones Negative, Urine Occult Blood Negative, Urine Nitrite Negative, Urine Bilirubin Negative, Urine Urobilinogen Normal, Ur Leukocyte Esterase Negative, Urine RBC 0-5 SEEN, Urine WBC 0-5 SEEN, Ur Squamous Epith Cells 0 SEEN, Urine Bacteria RARE, Urine Mucus 0 SEEN 09/11/25 05:15: ESR 12, C-React Prot Ext Range 18.50 H, TSH 5.560 H Radiography Diagnostic Testing: Radiology Impression Abdomen/Pelvis CT 09/10/25 16:08 IMPRESSION: Findings suggestive of discitis-osteomyelitis at the T10-11 level. No acute fracture. Clinical correlation recommended, and contrast-enhanced thoracic spine MRI may be helpful. No other acute findings in the chest, abdomen or pelvis. No pulmonary arterial emboli. Reading Location: [facility] Chest CTA 09/10/25 16:08 IMPRESSION: Findings suggestive of discitis-osteomyelitis at the T10-11 level. No acute fracture. Clinical correlation recommended, and contrast-enhanced thoracic spine MRI may be helpful. No other acute findings in the chest, abdomen or pelvis. No pulmonary arterial emboli. Reading Location: [facility] Physical Exam Const alert, oriented x3, no apparent distress, average body habitus, healthy appearing and well nourished Constitutional Narrative: Older, white female, lying in bed, at bedside, nursing at bedside, patient appears younger than stated age, appears comfortable at this time, nontoxic HEENT head/scalp atraumatic and moist oral mucous membranes Head and Scalp: normocephalic Resp normal respiratory effort, no retractions and no use of accessory muscles Auscultation: Negative for rales, rhonchi or wheezes Cardio regular rate, regular rhythm, S1 normal heart sound, S2 normal heart sound, no murmurs, no rub, no gallops and no clicks GI normal to inspection, nondistended, normoactive bowel sounds, soft to palpation and non-tender Extremity no clubbing, cyanosis or edema Extremity Narrative: 2+ pedal and radial pulses Neuro moves all extremities and no focal motor deficits Neuro Narrative: Painful with movement but no specific motor deficit Speech: speech normal Psych affect normal Psych Narrative: Very pleasant, interacts appropriately, seems mildly anxious which is appropriate for the current situation Assessment & Plan Assessment/Plan (1) Osteomyelitis of thoracic spine: PLAN: Plan Acute thoracic back pain secondary to T 10-11 osteomyelitis - MRI is consistent with osteomyelitis -Source of infection is uncertain - Start antibiotics with cefepime and vancomycin-->it was requested at admission by orthopedic surgery to hold off until imaging could be performed - ESR and CRP are surprisingly fairly unremarkable with a CRP of 18.5 and a normal ESR - Consult infectious disease - Await orthopedic surgery input - PT/OT consultation - Continue scheduled Tylenol 1 g Q8 - Continue as needed oxycodone - Continue as needed tizanidine - Add lidocaine patch - Add low-dose gabapentin 100 mg 3 times daily - Add low-dose Celebrex 100 mg twice daily - With Celebrex use add Protonix 40 mg daily for GI prophylaxis - Continue bowel regimen Hyperlipidemia - Total cholesterol in July of this year was 230 with an LDL of 157 - Patient is not on any medication regimen at this time - Recommended patient follow-up Abnormal TSH - 5.5 - Suspect euthyroid sick syndrome - No further workup at this time with recommended repeat in 6 months DVT prophylaxis - Continue subcu enoxaparin CODE STATUS - Full code Charges/Coding Visit Charges Inpatient E&M: 19890 Subs Hosp L2
[2025-09-11 07:49] VITALS: BP 90/55; PULSE 64; RESP 16; TEMP 36.4; O2SAT 95
[2025-09-11] MEDS: Senna/Docusate Sodium 1 Tablet 2 TABLET PO ×2 (07:52→20:43)
[2025-09-11] MEDS: 0.9% Saline Lock 10 ML Syringe IV ×2 (09:21→14:22)
[2025-09-11 09:24] VITALS: BP 93/58
--- NOTE | 2025-09-11 10:40 | CASEMGMT ---
RN?CM?ASSESSMENT ? RN?CM?to room to meet with patient for initial transition planning/care coordination?assessment.?RN?CM?introduced self and role at [facility].? Pt voices understanding and consents to?assessment?at this time.? Pt resting in bed in no distress at this time.? Pt is A/O at this time and answers all questions appropriately.?? Care providers, pharmacy, and demographics verified/updated at this time. ? Strata: 1 PCP: Dr Mar Specialists: none Preferred Pharmacy: [facility] @ discharge. Otherwise goes to [facility] in [place]. Insurance: [employer] [facility] Prescription Benefit:?Yes LNOK: , Son Living Arrangements: Lives w/ in ranch-style home w/3-4 steps to enter. Independent. Transportation:?Pt states drives self and states no transportation concerns at this time.? also drives. DME: ? Denies using any DME and denies needs at this time. HHC/SNF: No hx of either. Pt has done OP therapy in the past, stating she thinks it was @ [facility]. [facility] MRI results are pending. Pt states, depending on the MRI results, and if Dr Sibley recommends, she may be interested in OP therapy. Pt declines having further questions or discharge needs at this time. ? PLAN:??TBD, pending MRI results and recommendations. PT/OT evals pending. Follow for any recommendations. ? Yunier POEN?RN?CM
[2025-09-11 11:22] VITALS: BP 130/61; PULSE 70
[2025-09-11] MEDS: Lidocaine 5% Patch 1 PATCH TOPICAL (14:21)
[2025-09-11] MEDS: Vancomycin HCl 1,500 MG in 0.9% Normal Saline (500mL Bag) 500 ML 250 MG IV (14:22)
[2025-09-11] MEDS: HYDROmorphone 0.5 MG/0.5 ML SYRINGE IV (14:26)
[2025-09-11 14:31] VITALS: BP 123/82; PULSE 76; RESP 16; TEMP 36.6; O2SAT 98
--- NOTE | 2025-09-11 15:12 | PCM.RX.CS ---
Consult Antibiotic Management Pharmacy has been consulted to manage selected antibiotic: Vancomycin Type of Intervention Type of Consult: New start Suspected Infection Suspected Infection: Pneumonia Prior Doses of Antibiotics Prior Doses of Antibiotics Received/Current Regimen: 09/11/25 @ 1422 Vancomycin 1500mg x 1 Labs Labs: Sodium 136 mmol/L (133-145) 09/10/25 16:17 Potassium 3.7 mmol/L (3.3-5.1) 09/10/25 16:17 Chloride 100 mmol/L (98-108) 09/10/25 16:17 Carbon Dioxide 21.7 mmol/L (21.0-32.0) 09/10/25 16:17 Anion Gap 15 (5-15) 09/10/25 16:17 BUN 16 mg/dL (4-19) 09/10/25 16:17 Creatinine 0.90 mg/dL (0.70-1.20) 09/10/25 16:17 Est GFR (MDRD) Non-Af 68 (>60) 09/10/25 16:17 BUN/Creatinine Ratio 17.8 RATIO (10-20) 09/10/25 16:17 Glucose 110 mg/dL (70-99) H 09/10/25 16:17 Dosing Weight Weight used for dosin kg Goal Trough Goal Trough: 15-20 mcg/mL Pharmacy Plan for Drug Dosing Pharmacy Plan for Drug Dosing: Start Vancomycin 500mg every 12 hours on 09/12/25 @ 0230 Pharmacy Service will continue to monitor and adjust dosing as required. Follow-Up Labs Follow-Up Labs: Trough: Vancomycin Date/Time Labs Ordered Labs to be done on [date and time ordered]: 08/14/25 @ 0200
--- NOTE | 2025-09-11 15:35 | CON.PCM.OR_ITS ---
HPI Consult Data Date of Consult: 09/11/25 HPI Narrative HPI Narrative: RAMONE GONZALES, is a 70 F who presents with back pain radiating into the right lower ribs, ongoing since June. She has had 2 falls over the last 2 months but does not seem to have had any direct impact to the mid back area. Pain has been constant and worsens with activity and hurts even while in bed. Denies any tingling numbness or weakness in the lower extremities. Denies any balance issues. Severe pain with the reason for difficulty ambulation. Denies any fevers. Denies any obvious infections prior to the pain starting in June, but does mention of viral infections earlier in the year. Skin rash or sore in the ricardo cleft was also mentioned for which she used some form of cream and did not take any antibiotics. She denies diabetes, or any long-term steroid treatment. [facility] Home Medications ?Medication ?Instructions ?Recorded ?Last Taken ?Type NK 09/10/25 Unknown History Allergy/AdvReac Type Severity Reaction Status Date / Time No Known Allergies Allergy Verified 09/10/25 15:48 Social History Smoking Status: Never smoker Vital Signs Vital Signs Vital Signs: 09/10/25 15:48 09/10/25 19:24 09/10/25 19:29 Temperature 97 F L 98.5 F Temperature Source Temporal Oral Pulse Rate 87 82 Pulse Strength Respiratory Rate 18 18 Respiratory Effort Respiratory Depth Respiratory Pattern Blood Pressure 140/78 H 122/108 H Blood Pressure Mean 98 112 Blood Pressure Source Blood Pressure Position Blood Pressure Location Pulse Ox 97 100 Oxygen Delivery Method Room Air 09/10/25 19:47 09/10/25 21:20 09/10/25 21:20 Temperature 98.5 F 97.9 F Temperature Source Oral Pulse Rate 82 73 Pulse Strength Normal (2+) Respiratory Rate 18 16 Respiratory Effort Respiratory Depth Respiratory Pattern Blood Pressure 122/108 H 130/74 H Blood Pressure Mean 112 92 Blood Pressure Source Monitor Blood Pressure Position Semi-Fowlers Blood Pressure Location Left Arm Pulse Ox 100 98 Oxygen Delivery Method Room Air 09/10/25 21:20 09/11/25 03:28 09/11/25 03:30 Temperature 97.9 F Temperature Source Oral Pulse Rate 82 Pulse Strength Respiratory Rate 18 Respiratory Effort Normal Non-Labored Normal Non-Labored Respiratory Depth Normal Normal Respiratory Pattern Normal Normal Blood Pressure 137/84 H Blood Pressure Mean 101 Blood Pressure Source Monitor Blood Pressure Position Semi-Fowlers Blood Pressure Location Left Arm Pulse Ox 95 Oxygen Delivery Method Room Air Room Air Room Air 09/11/25 07:49 09/11/25 09:24 09/11/25 11:22 Temperature 97.5 F L Temperature Source Oral Pulse Rate 64 70 Pulse Strength Respiratory Rate 16 Respiratory Effort Respiratory Depth Respiratory Pattern Blood Pressure 90/55 L 93/58 L 130/61 H Blood Pressure Mean 66 69 84 Blood Pressure Source Monitor Monitor Monitor Blood Pressure Position Semi-Fowlers Semi-Fowlers Semi-Fowlers Blood Pressure Location Left Arm Left Arm Left Arm Pulse Ox 95 Oxygen Delivery Method Room Air 09/11/25 14:31 09/11/25 14:31 Temperature 97.8 F Temperature Source Temporal Pulse Rate 76 Pulse Strength Respiratory Rate 16 Respiratory Effort Normal Respiratory Depth Respiratory Pattern Blood Pressure 123/82 H Blood Pressure Mean 95 Blood Pressure Source Monitor Blood Pressure Position Semi-Fowlers Blood Pressure Location Left Arm Pulse Ox 98 Oxygen Delivery Method Room Air Weight Weight: 120 lb 9.486 oz Body Mass Index (BMI) 22.7 Physical Exam Narrative Examination of the back shows midline spinous process tenderness in the lower thoracic region. No tenderness along the ribs. Neurologic evaluation of lower extremity shows 5 x 5 power normal shows normal sensations throughout all toes. There is no hyperreflexia. Lab / Micro Data 09/10/25 16:17 09/10/25 16:17 Labs: Laboratory Results - last 24 hr 09/10/25 16:17: WBC 8.3, RBC 3.70 L, Hgb 12.0, Hct 33.2 L, MCV 89.7, MCH 32.4 H, MCHC 36.1 H, RDW Std Deviation 41.6, RDW Coeff of Sylvie 12.6, Plt Count 248, MPV 9.7, Immature Gran % (Auto) 0.100, Neut % (Auto) 64.4, Lymph % (Auto) 23.7, [place] % (Auto) 8.4, Eos % (Auto) 2.8, Baso % (Auto) 0.6, Absolute Neuts (auto) 5.3, Absolute Lymphs (auto) 1.96, Nucleated RBC % 0, ESR 18, Sodium 136, Potassium 3.7, Chloride 100, Carbon Dioxide 21.7, Anion Gap 15, BUN 16, Creatinine 0.90, E stim Creat Clear Calc 42.64 L, Est GFR (MDRD) Non-Af 68, BUN/Creatinine Ratio 17.8, Glucose 110 H, Calcium 9.6, Total Bilirubin 0.32, AST 18, ALT 12, Alkaline Phosphatase 54, C-React Prot Ext Range 18.10 H, Total Protein 7.1, Albumin 4.3, Globulin 2.8, Albumin/Globulin Ratio 1.5, Lipase 28 09/10/25 16:20: Urine Color Straw, Urine Clarity Clear, Urine pH 6.5, Ur Specific R[place] 1.005, Urine Protein 15 H, Urine Glucose (UA) Normal, Urine Ketones Negative, Urine Occult Blood Negative, Urine Nitrite Negative, Urine Bilirubin Negative, Urine Urobilinogen Normal, Ur Leukocyte Esterase Negative, Urine RBC 0-5 SEEN, Urine WBC 0-5 SEEN, Ur Squamous Epith Cells 0 SEEN, Urine Bacteria RARE, Urine Mucus 0 SEEN 09/11/25 05:15: ESR 12, C-React Prot Ext Range 18.50 H, TSH 5.560 H Imaging Radiology Impression Abdomen/Pelvis CT 09/10/25 16:08 IMPRESSION: Findings suggestive of discitis-osteomyelitis at the T10-11 level. No acute fracture. Clinical correlation recommended, and contrast-enhanced thoracic spine MRI may be helpful. No other acute findings in the chest, abdomen or pelvis. No pulmonary arterial emboli. Reading Location: [facility] Chest CTA 09/10/25 16:08 IMPRESSION: Findings suggestive of discitis-osteomyelitis at the T10-11 level. No acute fracture. Clinical correlation recommended, and contrast-enhanced thoracic spine MRI may be helpful. No other acute findings in the chest, abdomen or pelvis. No pulmonary arterial emboli. Reading Location: [facility] Thoracic Spine MRI 09/11/25 05:55 IMPRESSION: Findings concerning for osteomyelitis of T10 and T11 vertebral bodies without disc involvement. Lack of contrast lowers sensitivity of the examination. No compression fracture deformity in the thoracic spine. Small [id number]-left pleural effusions. Reading Location: [id number] Assessment & Plan Assessment/Plan (1) Osteomyelitis of thoracic spine: PLAN: Plan Reviewed CT abdomen done in the ER last night which showed suspicious lesion in the T10-11 segment with bony scalloping in the anterolateral aspect of the superior T11 body. This was reported to be discitis. Patient was admitted. Blood cultures were taken. Patient underwent MRI today without contrast. This shows findings suggestive T10-11 discitis osteomyelitis although the disc itself does not show any irregularity. Unsure why contrast could not be done. Blood culture results are awaited. CRP and ESR elevated. Discussed imaging findings in detail. Explained to patient that initial CT findings were suspicious, but MRI is suggestive of possible infectious pathology with T10-11 discitis osteomyelitis. I recommend empiric antibiotics and ID consultation. Imaging does not appear to show any obvious instability or epidural abscess, patient is neuro intact, no acute surgical intervention required at this time. Patient will likely require IV antibiotics for long duration. She may follow-up as an outpatient if pain does not continue to improve with antibiotic therapy. Patient was in agreement. Orthopedics will sign off. Charges/Coding Visit Charges Inpatient E&M: 22361 Init Hosp L3
[2025-09-11] MEDS: Polyethylene Glycol 3350 17 GM PACKET PO (16:05)
[2025-09-11] MEDS: Cefepime HCl 2 GM in 0.9% Normal Saline (100mL MB+) 100 ML IV (17:54)
[2025-09-11 20:40] VITALS: BP 136/69; PULSE 73; RESP 16; TEMP 36.6; O2SAT 98
[2025-09-12 01:25] VITALS: BP 144/61; PULSE 88; RESP 16; TEMP 36.4; O2SAT 98
[2025-09-12] MEDS: HYDROmorphone 0.5 MG/0.5 ML SYRINGE IV (01:28)
[2025-09-12] MEDS: 0.9% Saline Lock 10 ML Syringe IV ×2 (01:28→16:27)
[2025-09-12] MEDS: Vancomycin HCl 500 MG in 0.9% Normal Saline (100mL Bag) 100 ML 100 MG IV ×2 (01:30→14:34)
[2025-09-12 04:56] VITALS: BP 121/69; PULSE 81; RESP 16; TEMP 36.8; O2SAT 95
--- NOTE | 2025-09-12 06:58 | PN.HOSP_ITS ---
Reason for Visit Chief Complaint: Back pain since June 30, 2025 Subjective Subjective Patient complains of intermittent abdominal cramping. States she has not had a bowel movement since Monday. Feels distended. He is passing gas. Is drinking prune juice and we gave her 1 dose of MiraLAX yesterday and is taking scheduled senna. Overall back pain seems to be fairly well-controlled. No surgical needs at this time and awaiting ID input. I did discuss with patient that she would probably need long-term IV antibiotics and a PICC line. Likely PICC not to be placed until blood cultures are ensured to be clear. Objective Data Objective Data Vital Signs: Vital Signs Temp Pulse Resp BP Pulse Ox O2 Del Method 98.2 F 81 16 121/69 H 95 Room Air 09/12/25 04:56 09/12/25 04:56 09/12/25 04:56 09/12/25 04:56 09/12/25 04:56 09/12/25 04:56 Oxygen Delivery Method Room Air Weight: 54.7 kg Body Mass Index (BMI) 22.7 Intake & Output: Intake and Output for Last 24 Hours 09/10/25 09/11/25 09/12/25 23:59 23:59 23:59 Intake Total 1000 / 1000 1765 / 1765 310 / 310 Balance 1000 / 1000 1765 / 1765 310 / 310 Lab / Micro Data 09/10/25 16:17 09/12/25 06:42 Radiography Diagnostic Testing: Radiology Impression Thoracic Spine MRI 09/11/25 05:55 IMPRESSION: Findings concerning for osteomyelitis of T10 and T11 vertebral bodies without disc involvement. Lack of contrast lowers sensitivity of the examination. No compression fracture deformity in the thoracic spine. Small inhek-szfarwk-agrv-left pleural effusions. Reading Location: [facility] Physical Exam Const alert, oriented x3, no apparent distress, average body habitus, healthy appearing and well nourished Constitutional Narrative: Older, white female, lying in bed, appears mildly uncomfortable and complaining of abdominal cramping, does not look toxic HEENT head/scalp atraumatic and moist oral mucous membranes Head and Scalp: normocephalic Resp normal respiratory effort, no retractions, no use of accessory muscles and clear to auscultation bilaterally Auscultation: Negative for rales, rhonchi or wheezes Cardio regular rate, regular rhythm, S1 normal heart sound, S2 normal heart sound, no murmurs, no rub, no gallops and no clicks GI soft to palpation and non-tender GI Narrative: Mild distention but bowel sounds are good not tender to palpation but having intermittent cramping Extremity no clubbing, cyanosis or edema Extremity Narrative: 2+ pedal and radial pulses Neuro moves all extremities and no focal motor deficits Neuro Narrative: Painful with movement but no specific motor deficit Speech: speech normal Psych affect normal Psych Narrative: Very pleasant, interacts appropriately, remains a bit anxious which is appropriate Assessment & Plan Assessment/Plan (1) Osteomyelitis of thoracic spine: PLAN: Plan Acute thoracic back pain secondary to T 10-11 osteomyelitis - MRI is consistent with osteomyelitis -Source of infection is uncertain - Continue cefepime and vancomycin - ESR and CRP are surprisingly fairly unremarkable with a CRP of 18.5 and a normal ESR - ID consultation is pending - No surgical needs at this time-orthopedic surgery is signed off - PT/OT are following - Continue scheduled Tylenol 1 g Q8 - Continue as needed oxycodone - Continue as needed tizanidine - Continue lidocaine patch - Continue low-dose gabapentin 100 mg 3 times daily - Continue low-dose Celebrex 100 mg twice daily -Continue Protonix 40 mg daily for GI prophylaxis with NSAID use - Continue bowel regimen Acute constipation secondary to narcotic use and immobility - Continue scheduled senna - Continue MiraLAX as needed - Lactulose x 1 dose - As needed Bentyl for cramping - Encourage mobility and p.o. fluids Hyperlipidemia - Total cholesterol in July of this year was 230 with an LDL of 157 - Patient is not on any medication regimen at this time - Recommended patient follow-up Abnormal TSH - 5.5 - Suspect euthyroid sick syndrome - No further workup at this time with recommended repeat in 6 months DVT prophylaxis - Continue subcu enoxaparin CODE STATUS - Full code Charges/Coding Visit Charges Inpatient E&M: 00393 Subs Hosp L2
[2025-09-12 07:52] LABS: Anion Gap 10 (5-15); BUN 9 mg/dL (4-19); BUN/Creat Ratio 11.3 RATIO (10-20); Calcium,Total 8.8 mg/dL (7.6-11.0); Carbon Dioxide 20.2 mmol/L (21.0-32.0); Chloride 105 mmol/L (98-108); Estimated Creatinine Clearance 47.97 ml/min (50-250); Glucose 149 mg/dL (70-99); Potassium 4.1 mmol/L (3.3-5.1)
[2025-09-12] MEDS: Lidocaine 5% Patch 1 PATCH TOPICAL (08:21)
[2025-09-12] MEDS: Polyethylene Glycol 3350 17 GM PACKET PO (08:27)
[2025-09-12] MEDS: Cefepime HCl 2 GM in 0.9% Normal Saline (100mL MB+) 100 ML IV (10:52)
[2025-09-12 11:20] VITALS: BP 92/56; PULSE 76; RESP 16; TEMP 36.8; O2SAT 94
--- NOTE | 2025-09-12 13:05 | CASEMGMT ---
RN MILAN noted Pt wanting OP PT, ALANA YATES spoke with Orthopedic Surgeon he would like Pt to get PT at time of DC. ALANA YATES obtained order for OP PT.
--- NOTE | 2025-09-12 14:25 | PCM.CONS.GEN ---
Assessment & Plan Assessment/Plan (1) Osteomyelitis of thoracic spine: PLAN: Bcx pending, seen by Dr. Sibley. Will cover empirically with vanc/ceftriaxone, plan is for picc and 6 weeks iv abx. Will follow, thank you HPI Consult Data Date of Consult: 09/12/25 HPI Narrative Reason for Consultation: osteo HPI Narrative: RAMONE GONZALES, is a 70 F who presented 09/10 with 2 months progressive mid-back pain. No fever or chills. No known inciting events, but pain initially started after moving a heavy chair. No recent dental work or medical procedures. No bowel or bladder incontinence. General weakness. Pain is moderate, does not radiate down legs. Came to ED, MRI done, on vanc/cefepime, seen by Dr. Sibley. Full ROS performed and neg except as noted above. PFSH Home Medications ?Medication ?Instructions ?Recorded ?Last Taken ?Type NK 09/10/25 Unknown History Allergy/AdvReac Type Severity Reaction Status Date / Time No Known Allergies Allergy Verified 09/10/25 15:48 Social History Smoking Status: Never smoker Physical Exam Const alert, oriented x3 and no apparent distress General Appearance: cooperative HEENT normocephalic and head/scalp atraumatic Eyes PERRL and EOMs intact bilaterally Neck supple and No nodes Resp normal air movement and clear to auscultation bilaterally Cardio regular rate, regular rhythm and no murmurs GI soft to palpation, non-tender and non-distended Skin no rashes or lesions noted Neuro CN's II-XII intact bilaterally Neuro Narrative: lower thoracic tenderness Lab / Micro Data Attestation: I reviewed the patient's lab results. 09/10/25 16:17 09/12/25 06:42 Labs: Laboratory Results - last 24 hr 09/12/25 06:42: Sodium 136, Potassium 4.1, Chloride 105, Carbon Dioxide 20.2 L, Anion Gap 10, BUN 9, Creatinine 0.79, Estim Creat Clear Calc 47.97 L, Est GFR (MDRD) Non-Af 79, BUN/Creatinine Ratio 11.3, Glucose 149 H, Calcium 8.8
[2025-09-12] MEDS: 0.9% Normal Saline (250mL Bag) 250 ML 15 ML IV ×2 (14:34→16:27)
--- NOTE | 2025-09-12 14:53 | CASEMGMT ---
Social Work Physician did sign a script for outpt PT, copy placed on pt's bedside table, as pt is asleep. Original in chart. It is anticipated pt will be here through the weekend, as pt's cultures are pending. SW/CM following for antibiotic needs. LILA Purdy
[2025-09-12 15:04] VITALS: BP 114/68; PULSE 99; RESP 18; TEMP 36.9; O2SAT 98
[2025-09-12] MEDS: Ceftriaxone 2 GM in 0.9% Normal Saline (50mL MB+) 50 ML IV (16:26)
--- NOTE | 2025-09-12 17:34 | CASEMGMT ---
RN MILAN note: Per Dr Feliz note, pt to get PICC and will need 6 wks IV atb's @ discharge. RN CM to room. Pt resting in bed. Discussed IV atb's and discharge planning. Questions answered. Pt wishes to discharge home w/C. Pt states she is willing to learn how to administer the IV atb's and her would also be a teachable caregiver. She states her daughter is a nurse and would be able to assist at times, as well, although her daughter does live about 20 miles away, so would not be there every day. Pt made aware while having [facility] come that PT would also be through [facility], not as OP. She voices understanding. Pt states she would like [facility] and declines wanting list of other [facility] options at this time, unless [facility] unable to accept pt. Discussed infusion companies. Questions answered. Pt states she has no preference and states to use [facility]. Pt declines having other discharge needs at this time. Call placed to [facility] and VM left re: referral. Yunier SANTA RN CM
[2025-09-12 21:07] VITALS: BP 99/60; PULSE 67; RESP 16; TEMP 36.7; O2SAT 95
[2025-09-13 02:49] LABS: Vancomycin, Trough Level 8.4 ug/mL (5.0-15.0)
--- NOTE | 2025-09-13 03:07 | PCM.RX.CS ---
Consult Antibiotic Management Pharmacy has been consulted to manage selected antibiotic: Vancomycin Type of Intervention Type of Consult: Follow-up Suspected Infection Suspected Infection: Osteomyelitis Labs Labs: Sodium 136 mmol/L (133-145) 09/12/25 06:42 Potassium 4.1 mmol/L (3.3-5.1) 09/12/25 06:42 Chloride 105 mmol/L (98-108) 09/12/25 06:42 Carbon Dioxide 20.2 mmol/L (21.0-32.0) L 09/12/25 06:42 Anion Gap 10 (5-15) 09/12/25 06:42 BUN 9 mg/dL (4-19) 09/12/25 06:42 Creatinine 0.79 mg/dL (0.70-1.20) 09/12/25 06:42 Est GFR (MDRD) Non-Af 79 (>60) 09/12/25 06:42 BUN/Creatinine Ratio 11.3 RATIO (10-20) 09/12/25 06:42 Glucose 149 mg/dL (70-99) H 09/12/25 06:42 Vancomycin Trough 8.4 ug/mL (5.0-15.0) 09/13/25 01:50 Dosing Weight Weight used for dosin.7 kg Estimated Creatinine Clearance Estimated Creatinine Clearance: 48 Goal Trough Goal Trough: 15-20 mcg/mL Pharmacy Plan for Drug Dosing Pharmacy Plan for Drug Dosing: Vancomycin trough level of 8.4, drawn 11.25hrs post-dose, was below the target range of 15-20. Will increase the dose to 1000mg q12h and will draw another trough level prior to fourth dose of the new regimen. Pharmacy Service will continue to monitor and adjust dosing as required. Follow-Up Labs Follow-Up Labs: Trough: Vancomycin Date/Time Labs Ordered Labs to be done on [date and time ordered]: 09/14/25 @0127
[2025-09-13] MEDS: Vancomycin HCl 1,000 MG in 0.9% Normal Saline (250mL Bag) 250 ML 250 MG IV ×2 (03:08→15:04)
[2025-09-13 03:12] VITALS: BP 121/70; PULSE 83; RESP 16; TEMP 36.7; O2SAT 96
[2025-09-13 07:57] VITALS: BP 139/75; PULSE 78; RESP 18; TEMP 36.6; O2SAT 98
[2025-09-13] MEDS: Lidocaine 5% Patch 1 PATCH TOPICAL (08:05)
[2025-09-13] MEDS: Senna/Docusate Sodium 1 Tablet 2 TABLET PO ×2 (08:05→20:28)
[2025-09-13 08:38] VITALS: O2SAT 98
--- NOTE | 2025-09-13 09:56 | PCM.PN.HOSP ---
Reason for Visit Chief Complaint: Back pain since June 30, 2025 Subjective Subjective 2 BM yesterday and no further cramping. Plans to get up and walk when comes in. Anxious to get home. We reviewed plan for picc and LT Abx with home likely Monday. Objective Data Objective Data Vital Signs: Vital Signs Temp Pulse Resp BP Pulse Ox O2 Del Method 97.8 F 78 18 139/75 H 98 Room Air 09/13/25 07:57 09/13/25 07:57 09/13/25 07:57 09/13/25 07:57 09/13/25 08:38 09/13/25 08:38 Oxygen Delivery Method Room Air Weight: 54.7 kg Body Mass Index (BMI) 22.7 Intake & Output: Intake and Output for Last 24 Hours 09/11/25 09/12/25 09/13/25 23:59 23:59 23:59 Intake Total 1765 / 1765 1557.25 / 1557.25 520 / 520 Balance 1765 / 1765 1557.25 / 1557.25 520 / 520 Lab / Micro Data 09/10/25 16:17 09/12/25 06:42 Labs: Laboratory Results - last 24 hr 09/13/25 01:50: Vancomycin Trough 8.4 Physical Exam Const alert, oriented x3, no apparent distress, average body habitus, healthy appearing and well nourished Constitutional Narrative: Older, white female, sitting up in bed, appears comfortable, non toxic, intermittently tearful HEENT head/scalp atraumatic and moist oral mucous membranes Head and Scalp: normocephalic Neuro moves all extremities and no focal motor deficits Speech: speech normal Psych Psych Narrative: intermittently tearful Assessment & Plan Assessment/Plan (1) Osteomyelitis of thoracic spine: PLAN: Plan Acute thoracic back pain secondary to T 10-11 osteomyelitis - MRI is consistent with osteomyelitis -Source of infection is uncertain - Continue cefepime and vancomycin - ID plan is for 6 weeks of IV Abx - PICC will be ordered once Blood cx neg at 48 hrs - No surgical needs at this time-orthopedic surgery is signed off - PT/OT are following - Continue scheduled Tylenol 1 g Q8 - Continue as needed oxycodone - Continue as needed tizanidine - Continue lidocaine patch - Continue low-dose gabapentin 100 mg 3 times daily - Continue low-dose Celebrex 100 mg twice daily -Continue Protonix 40 mg daily for GI prophylaxis with NSAID use - Continue bowel regimen Acute constipation secondary to narcotic use and immobility - resolved - continue Senna - PRN Miralax - encourage OOB and po liquid intake Hyperlipidemia - Total cholesterol in July of this year was 230 with an LDL of 157 - Patient is not on any medication regimen at this time - Recommended patient follow-up Abnormal TSH - 5.5 - Suspect euthyroid sick syndrome - No further workup at this time with recommended repeat in 6 months DVT prophylaxis - Continue subcu enoxaparin CODE STATUS - Full code Charges/Coding Visit Charges Inpatient E&M: 27439 Subs Hosp L1
[2025-09-13] MEDS: Ceftriaxone 2 GM in 0.9% Normal Saline (50mL MB+) 50 ML IV (10:09)
[2025-09-13] MEDS: 0.9% Saline Lock 10 ML Syringe IV ×2 (10:10→20:26)
[2025-09-13 14:35] VITALS: BP 145/80; PULSE 87; RESP 18; TEMP 36.8; O2SAT 98
[2025-09-13 20:32] VITALS: BP 104/72; PULSE 68; RESP 18; TEMP 36.9; O2SAT 96
[2025-09-14 02:30] VITALS: BP 140/78; PULSE 80; RESP 18; TEMP 36.7; O2SAT 97
[2025-09-14] MEDS: Vancomycin HCl 1,000 MG in 0.9% Normal Saline (250mL Bag) 250 ML 250 MG IV ×2 (03:14→15:49)
--- NOTE | 2025-09-14 06:54 | PCM.PN.HOSP ---
Reason for Visit Chief Complaint: Back pain since June 30, 2025 Subjective Subjective Patient complaining of some mild nausea this morning. She is concerned that her pain is not improving significantly yet. We discussed that this has been an ongoing issue and that the infection of the bone will take some time to heal and this is more of a marathon mentality versus a sprint. We discussed that her blood cultures were negative and a PICC line would be placed. Objective Data Objective Data Vital Signs: Vital Signs Temp Pulse Resp BP Pulse Ox O2 Del Method 98.0 F 80 18 140/78 H 97 Room Air 09/14/25 02:30 09/14/25 02:30 09/14/25 02:30 09/14/25 02:30 09/14/25 02:30 09/14/25 02:30 Oxygen Delivery Method Room Air Weight: 54.7 kg Body Mass Index (BMI) 22.7 Intake & Output: Intake and Output for Last 24 Hours 09/12/25 09/13/25 09/14/25 23:59 23:59 23:59 Intake Total 1557.25 / 1557.25 840 / 1290 1070 / 1070 Balance 1557.25 / 1557.25 840 / 1290 1070 / 1070 Lab / Micro Data 09/10/25 16:17 09/12/25 06:42 Micro: Microbiology 09/10/25 19:25 Blood Culture (Wb) - Anticubital Left Blood Culture - Preliminary No growth in 48 hours. 09/10/25 19:45 Blood Culture (Wb) - Anticubital Left Blood Culture - Preliminary No growth in 48 hours. Physical Exam Const alert, oriented x3, no apparent distress, average body habitus, healthy appearing and well nourished Constitutional Narrative: Older, white female, sitting up in bed, currently appears minimally uncomfortable but not in any kind of distress, nontoxic appearing HEENT head/scalp atraumatic and moist oral mucous membranes HEENT Narrative: No thrush, Mallampati 2 Resp normal respiratory effort, no retractions, no use of accessory muscles and clear to auscultation bilaterally Auscultation: Negative for rales, rhonchi or wheezes Cardio regular rate, regular rhythm, S1 normal heart sound, S2 normal heart sound, no murmurs, no rub, no gallops and no clicks GI normal to inspection, nondistended, normoactive bowel sounds, soft to palpation and non-tender GI Narrative: Mild distention Extremity no clubbing, cyanosis or edema Extremity Narrative: 2+ pedal and radial pulses Neuro moves all extremities and no focal motor deficits Neuro Narrative: Painful with movement but no specific motor deficit Speech: speech normal Psych Psych Narrative: Affect is flat but appropriate for the situation, appears slightly depressed related to current events Assessment & Plan Assessment/Plan (1) Osteomyelitis of thoracic spine: PLAN: Plan Acute thoracic back pain secondary to T 10-11 osteomyelitis - MRI is consistent with osteomyelitis -Source of infection is uncertain - Continue cefepime and vancomycin - ID plan is for 6 weeks of IV Abx--> awaiting input for final antibiotic recommendations - Blood cultures are negative at 48 hours -PICC line ordered on 09/14/2025 - No surgical needs at this time-orthopedic surgery is signed off - PT/OT are following - Continue scheduled Tylenol 1 g Q8 - Continue as needed oxycodone - Continue as needed tizanidine - Continue lidocaine patch - Continue low-dose gabapentin 100 mg 3 times daily - Continue low-dose Celebrex 100 mg twice daily -Continue Protonix 40 mg daily for GI prophylaxis with NSAID use - Continue bowel regimen Acute constipation secondary to narcotic use and immobility - Last bowel movement on 09/12/2025 - continue Senna - PRN Miralax - encourage OOB and po liquid intake Hyperlipidemia - Total cholesterol in July of this year was 230 with an LDL of 157 - Patient is not on any medication regimen at this time - Recommended patient follow-up Abnormal TSH - 5.5 - Suspect euthyroid sick syndrome - No further workup at this time with recommended repeat in 6 months DVT prophylaxis - Continue subcu enoxaparin CODE STATUS - Full code Disposition: PICC placement today with negative blood cultures at 48 hours. Await ID input for recommendations for long-term antibiotics and case management to assist with discharge Charges/Coding Visit Charges Inpatient E&M: 83089 Subs Hosp L2
[2025-09-14] MEDS: Senna/Docusate Sodium 1 Tablet 2 TABLET PO ×2 (07:55→20:29)
[2025-09-14] MEDS: Lidocaine 5% Patch 1 PATCH TOPICAL (07:55)
[2025-09-14 08:11] VITALS: BP 130/74; PULSE 70; RESP 16; TEMP 36.2; O2SAT 96
[2025-09-14] MEDS: 0.9% Saline Lock 10 ML Syringe IV (09:06)
[2025-09-14] MEDS: Ceftriaxone 2 GM in 0.9% Normal Saline (50mL MB+) 50 ML IV (09:58)
[2025-09-14 11:28] VITALS: O2SAT 96
[2025-09-14] MEDS: Polyethylene Glycol 3350 17 GM PACKET PO (13:25)
[2025-09-14 14:47] VITALS: BP 134/70; PULSE 78; RESP 16; TEMP 36.5; O2SAT 97
[2025-09-14 14:49] LABS: Vancomycin, Trough Level 15.6 ug/mL (5.0-15.0)
--- NOTE | 2025-09-14 15:34 | PCM.RX.CS ---
Consult Antibiotic Management Pharmacy has been consulted to manage selected antibiotic: Vancomycin Type of Intervention Type of Consult: Follow-up Labs Labs: Sodium 136 mmol/L (133-145) 09/12/25 06:42 Potassium 4.1 mmol/L (3.3-5.1) 09/12/25 06:42 Chloride 105 mmol/L (98-108) 09/12/25 06:42 Carbon Dioxide 20.2 mmol/L (21.0-32.0) L 09/12/25 06:42 Anion Gap 10 (5-15) 09/12/25 06:42 BUN 9 mg/dL (4-19) 09/12/25 06:42 Creatinine 0.79 mg/dL (0.70-1.20) 09/12/25 06:42 Est GFR (MDRD) Non-Af 79 (>60) 09/12/25 06:42 BUN/Creatinine Ratio 11.3 RATIO (10-20) 09/12/25 06:42 Glucose 149 mg/dL (70-99) H 09/12/25 06:42 Vancomycin Trough 15.6 ug/mL (5.0-15.0) H 09/14/25 14:10 Microbiology Microbiology: Microbiology 09/10/25 19:25 Blood Culture (Wb) - Anticubital Left Blood Culture - Preliminary No growth in 48 hours. 09/10/25 19:45 Blood Culture (Wb) - Anticubital Left Blood Culture - Preliminary No growth in 48 hours. Pharmacy Plan for Drug Dosing Pharmacy Plan for Drug Dosing: VANCOMYCIN LEVEL RECEIVED Current Vancomycin Dose: 1000MG Q12H Number of Doses Received: 3 Vancomycin Level: 15.6 Hours Since Last Dose: ~ 12 HOURS Renal Function: BMP ORDERED FOR 09/15/2025 Renal Function Trend: STABLE Lab/Micro: BCX NO GROWTH X48 HOURS Vancomycin Plan/Comments: CONTINUE CURRENT DOSE OF 1000MG Q12H Pending Level: 09/16/2025 @ 0230 Pharmacy Service will continue to monitor and adjust dosing as required.
[2025-09-14 20:32] VITALS: BP 149/84; PULSE 81; RESP 18; TEMP 36.9; O2SAT 98
[2025-09-15 02:30] VITALS: BP 151/82; PULSE 79; RESP 16; TEMP 36.3; O2SAT 98
[2025-09-15] MEDS: Vancomycin HCl 1,000 MG in 0.9% Normal Saline (250mL Bag) 250 ML 250 MG IV ×2 (03:29→15:42)
[2025-09-15 06:59] LABS: Hematocrit 31.6 % (37-47); Hemoglobin 10.7 g/dL (12.0-15.0); Mean Corp Hgb Conc 33.9 g/dL (32-36); Mean Corpuscular Volume 91.9 fL (81-99); Mean Platelet Vol. 9.8 fl (6.2-12.0); Platelet Count 250 K/mm3 (150-450); RBC Distribution Width CV 12.7 % (11.6-14.6); RBC Distribution Width SD 42.7 fl (35.1-43.9); Red Blood Count 3.44 M/mm3 (4.2-5.4); White Blood Count 4.1 K/mm3 (4.4-11.0)
[2025-09-15 07:07] LABS: Scan Indicated on CBC? Y/N NO
[2025-09-15 07:21] LABS: Anion Gap 10 (5-15); BUN 7 mg/dL (4-19); BUN/Creat Ratio 10.0 RATIO (10-20); Calcium,Total 9.3 mg/dL (7.6-11.0); Carbon Dioxide 24.4 mmol/L (21.0-32.0); Chloride 104 mmol/L (98-108); Estimated Creatinine Clearance 47.97 ml/min (50-250); Glucose 97 mg/dL (70-99); Potassium 3.8 mmol/L (3.3-5.1)
[2025-09-15] MEDS: Lidocaine 5% Patch 1 PATCH TOPICAL (09:05)
[2025-09-15] MEDS: Senna/Docusate Sodium 1 Tablet 2 TABLET PO (09:05)
[2025-09-15] MEDS: Ceftriaxone 2 GM in 0.9% Normal Saline (50mL MB+) 50 ML IV (09:11)
--- NOTE | 2025-09-15 09:14 | CASEMGMT ---
Addendum entered by Osiris Aggarwal 09/15/25 10:54: Received tc from Kayla at [facility] stating that pt is borderline in their area. They would like ALANA YATES to try other agencies and if unable to find an accepting agency to notify them back. Requested dc marketing assistant manager make [facility] list. Addendum entered by Osiris Aggarwal 09/15/25 10:26: Received tc back from Kayla at [facility], she states she would like called when final recs are given by ID. She states they are not sure if they are able to take pt but if they do it would not be until Monday. Original Note: TC to [facility], left vm to confirm if they are able to accept pt for services.
[2025-09-15 09:30] VITALS: BP 146/75; PULSE 78; RESP 16; TEMP 36.6; O2SAT 99
--- NOTE | 2025-09-15 11:14 | CASEMGMT ---
Discharge Planning A list of?HH providers including quality and resource use data and consistent with the patient's preferred geographic region, medical needs, and insurance network was created in [employer].? This list was provided to the RN MILAN. Jacqui Matute, Discharge Planning Asst.
--- NOTE | 2025-09-15 11:23 | CASEMGMT ---
Addendum entered by Osiris Aggarwal 09/15/25 14:32: ALANA YATES into pt room, pt is aware of $10 copay for each drug each week. Pt is aware that [facility] has accepted for services. Discussed process for homegoing IV's and answered questions. Pt denies further needs at this time. Updated hospitalist that HHC and infusion has been set up. Addendum entered by Osiris Aggarwal 09/15/25 14:24: Received IV rxs from ID, uploaded to [employer] at this time. Received confirmation that pt has a $10 copay for each med. [facility] has accepted pt for services, [facility] has not responded. Addendum entered by Osiris Aggarwal 09/15/25 12:52: ALANA YATES into pt room, pt has chosen either [facility] or [facility] as 1st and 2nd choices followed by [facility]. [facility]errals [facility] to the [facility] Referral sent to [facility] as well for services. Original Note: ALANA YATES into pt room, pt provided HHC list created by dc assistant track coach. Pt is aware that [facility] cannot accept. Requested pt review list for top 3 preferences and ALANA YATES will check back.
--- NOTE | 2025-09-15 14:21 | PCM.PN.ID ---
Physical Exam Narrative Feeling a little better, less back pain, no fever, no n/v/d. Const alert and no apparent distress General Appearance: cooperative Resp normal air movement and clear to auscultation bilaterally Cardio regular rate and regular rhythm GI soft to palpation, non-tender and non-distended Skin no rashes or lesions noted ID ID: Route of nutrition/ use of supplements: [] Nutritional Intake: [] IV Site: [] Pedro Catheter: [] Assessment & Plan Assessment/Plan (1) Osteomyelitis of thoracic spine: PLAN: Bcx ngtd, seen by Dr. Sibley. Will cover empirically with vanc/ceftriaxone with picc and 6 weeks iv abx, stop date 10/23/25 with weekly labs. D/w case packer and sealer. ID followup in 2 weeks. Will follow
[2025-09-15 15:35] VITALS: BP 157/96; PULSE 74; RESP 16; TEMP 36.4; O2SAT 100
[2025-09-15] MEDS: 0.9% Saline Lock 10 ML Syringe IV (15:42)
--- NOTE | 2025-09-15 16:59 | DCINST_ITS ---
Discharge Instructions DC O2, CPAP, BIPAP needs Home O2 Discharge instructions: No Dressing / Incision Discharge Activity: Return to Normal Activity Weight Bearing Status: Full weight bearing Follow Up Care Test Results: Test results from this visit will be discussed in further detail at your follow- up appointment, if applicable. Discharge Plan Admission Admit Date/Time: 09/10/25 20:04 Primary Reason for Your Visit: Osteomyelitis of the thoracic spine T10-11 Attending Provider: Axel Brito Primary Care Provider: Berta Mar Consulting Providers: Sharad Sibley; Ben Lee; Radames Feliz; Latisha Weston Discharge Orders/Prescriptions Prescriptions: New ceftriaxone 2 gram recon soln 2 g IV DAILY vancomycin 1,000 mg recon soln 1,000 mg IV Q12H 39 Days Qty: 78 0RF Rx Instructions: stop date 10/23/25. dx: spine osteomyelitis. Weekly bmp, cbc, LFT, vanc trough, and esr. Fax to [phone]. Routine picc care per protocol. tizanidine 2 mg Tablet 2 - 4 mg PO Q8H PRN PRN (Reason: Muscle Spasms/Musculoskeletal Pain) Qty: 30 0RF Rx Instructions: use for muscle spasm acetaminophen 500 mg Tablet 1,000 mg PO Q8 Qty: 0 0RF pantoprazole 40 mg Tablet,Delayed Release (Dr/Ec) 40 mg PO DAILY Qty: 30 0RF gabapentin 100 mg Capsule 100 mg PO TIDCM Qty: 90 0RF celecoxib 100 mg Capsule 100 mg PO BID Qty: 60 0RF oxycodone 5 mg Tablet 5 - 10 mg PO Q6H PRN (Reason: Pain Score 4-5 Or Pre Pt/Ot) 7 Days Qty: 35 0RF Rx Instructions: 1 or 2 every 6 hours as needed for severe pain Referrals / Follow Up: Berta Mar DO [Primary Care Provider, Family Practice] - See Referral Note Referral Note: In 2 to 3 weeks Radames Feliz MD [Med Staff - Active Staff, Infectious Disease] Referral Note: In 2 weeks-call for an appointment Disposition Disposition (needs filled in before D/C Order can be placed): Home Health Service
--- NOTE | 2025-09-15 17:11 | DS.PCM_ITS ---
Providers Date of Admission: 09/10/25 Date of Discharge: 09/15/25 Primary Care Physician: Dr. Berta Mar, Consultations 09/10/25 20:31 Consult: Orthopedics Routine Consulting Provider: Sharad Sibley Reason for Consult: back pain EMERGENT Consult: No Notified: Yes Date Notified: 09/10/25 Time Notified: 20:08 Method of Notification: ED Physician Initiated 09/11/25 11:40 Consult: Infectious Disease Routine Consulting Provider: Radames Feliz Reason for Consult: Thoracic spine osteomyelitis EMERGENT Consult: No Notified: Yes Date Notified: 09/11/25 Time Notified: 12:14 Method of Notification: Text Reason For Visit: back pain Diagnosis Discharge Diagnosis (1) Osteomyelitis of thoracic spine: Status: Acute Code(s): M46.24 - Osteomyelitis of vertebra, thoracic region Plan Final diagnosis: #1 osteomyelitis of thoracic spine-exact organism unclear #2 back pain secondary to T10-11 osteomyelitis #3 hyperlipidemia Medications at Discharge Home Medications acetaminophen 500 mg tablet 1,000 mg (2 x 500 mg) PO Q8 #0 tabs 09/15/25 ceftriaxone 2 gram intravenous solution 2 g IV DAILY 09/15/25 celecoxib 100 mg capsule 100 mg PO BID #60 caps 09/15/25 gabapentin 100 mg capsule 100 mg PO TIDCM #90 caps 09/15/25 oxycodone 5 mg tablet 5 - 10 mg (1 - 2 x 5 mg) PO Q6H PRN Pain Score 4-5 Or Pre Pt/Ot 7 days #35 tabs 09/15/25 pantoprazole 40 mg tablet,delayed release 40 mg PO DAILY #30 tabs 09/15/25 tizanidine 2 mg tablet 2 - 4 mg (1 - 2 x 2 mg) PO Q8H PRN PRN Muscle Spasms/Musculoskeletal Pain #30 tabs 09/15/25 vancomycin 1,000 mg intravenous injection 1,000 mg IV Q12H 39 days #78 ea 09/15/25 Hospital Course Operations None Procedures PICC line placement Summary of Care Provided Minutes Spent on Discharge: 31 Hospital Course: This 70-year-old white female was seen in the emergency room at [facility] with complaints of back pain which began June 30, 2025 after she lifted some heavy materials. She saw an outpatient chiropractor who did x-rays and was told nothing was fractured. Patient complains of extreme pain in her back and she came in to the ER for further evaluation. Patient's labs were unremarkable except for a CPR of 18.1., CTA of her chest showed findings suggestive of discitis/osteomyelitis at T10-11, patient was admitted to [place] [address] and seen in consultation by Dr. Marquez of spinal surgery. MRI was ordered which showed findings suggestive of T10-11 osteomyelitis. IV antibiotics were continued and she was seen in consultation by infectious diseases. Patient's cultures were negative, it was recommended the patient have PICC line for outpatient IV antibiotic treatment. On 09/15/2025, patient was seen and examined: On examination she appeared in good health and spirits, she does not appear to be in any distress. Vital signs as documented. Skin warm and dry and without overt rashes. Neck without JVD, thyroid appears normal, trachea is midline, neck is supple. Lungs clear, normal air movement was noted. Heart exam notable for regular rhythm, normal sounds and absence of murmurs, rubs or gallops. Abdomen unremarkable and without evidence of organomegaly, masses, or abdominal aortic enlargement, bowel sounds are present in all 4 quadrants, no abdominal tenderness was noted. Extremities nonedematous, no cyanosis was noted, no clubbing was noted. Neuro: Cranial nerves II through XII are grossly intact, no focal motor deficits were noted, sensation to light touch and pinprick is intact, motor exam 5/5 throughout. Psych: Patient is alert and oriented x3, she does not appear anxious or depressed, she does not appear agitated. Patient appeared stable for discharge home on 09/15/2025 in stable condition Weight / BMI Weight Weight: 54.7 kg Body Mass Index (BMI) 22.7 ABG / Lab / Microbiology Data 09/15/25 06:29 09/15/25 06:29 Laboratory: Laboratory Results - last 24 hr 09/15/25 06:29: WBC 4.1 L, RBC 3.44 L, Hgb 10.7 L, Hct 31.6 L, MCV 91.9, MCH 31.1, MCHC 33.9 D, RDW Std Deviation 42.7, RDW Coeff of Sylvie 12.7, Plt Count 250, MPV 9.8, Sodium 139, Potassium 3.8, Chloride 104, Carbon Dioxide 24.4, Anion Gap 10, BUN 7, Creatinine 0.70, Estim Creat Clear Calc 47.97 L, Est GFR (MDRD) Non-Af 92, BUN/Creatinine Ratio 10.0, Glucose 97, Calcium 9.3 Microbiology: Microbiology 09/10/25 19:25 Blood Culture (Wb) - Anticubital Left Blood Culture - Final No growth in 5 days. 09/10/25 19:45 Blood Culture (Wb) - Anticubital Left Blood Culture - Final No growth in 5 days. D/C Instructions Weight Bearing Status: Full weight bearing DC O2, CPAP, BIPAP Needs Home O2 Discharge instructions: No Meaningful Use Info Meaningful Use Meaningful Use Diagnoses (Choose all that apply): None applicable Discharge Plan Admission Admit Date/Time: 09/10/25 20:04 Primary Reason for Your Visit: Osteomyelitis of the thoracic spine T10-11 Attending Provider: Axel Brito Primary Care Provider: Berta Mar Consulting Providers: Sharad Sibley; Ben Lee; Radames Feliz; Latisha Weston Discharge Orders/Prescriptions Prescriptions: New ceftriaxone 2 gram recon soln 2 g IV DAILY vancomycin 1,000 mg recon soln 1,000 mg IV Q12H 39 Days Qty: 78 0RF Rx Instructions: stop date 10/23/25. dx: spine osteomyelitis. Weekly bmp, cbc, LFT, vanc trough, and esr. Fax to [phone]. Routine picc care per protocol. tizanidine 2 mg Tablet 2 - 4 mg PO Q8H PRN PRN (Reason: Muscle Spasms/Musculoskeletal Pain) Qty: 30 0RF Rx Instructions: use for muscle spasm acetaminophen 500 mg Tablet 1,000 mg PO Q8 Qty: 0 0RF pantoprazole 40 mg Tablet,Delayed Release (Dr/Ec) 40 mg PO DAILY Qty: 30 0RF gabapentin 100 mg Capsule 100 mg PO TIDCM Qty: 90 0RF celecoxib 100 mg Capsule 100 mg PO BID Qty: 60 0RF oxycodone 5 mg Tablet 5 - 10 mg PO Q6H PRN (Reason: Pain Score 4-5 Or Pre Pt/Ot) 7 Days Qty: 35 0RF Rx Instructions: 1 or 2 every 6 hours as needed for severe pain Referrals / Follow Up: Berta Mar DO [Primary Care Provider, Family Practice] - See Referral Note Referral Note: In 2 to 3 weeks Radames Feliz MD [Med Staff - Active Staff, Infectious Disease] Referral Note: In 2 weeks-call for an appointment Disposition Disposition (needs filled in before D/C Order can be placed): Home Health Service Charges/Coding Visit Charges Inpatient E&M: 88190 Disch Hosp >30min
== END 2025-09-15 17:53 | disposition home health service (06) | DRG 541 ==
LOC: ED 19:44 → MS3 20:16
PROVIDERS: Internal Medicine; Internal Medicine Infectious Disease; Admitting Provider Internal Medicine; Emergency Provider Emergency Medicine; PCP Family Medicine; Visit Provider Internal Medicine
DX: M46.24 Osteomyelitis of vertebra, thoracic region (principal); E07.81 Sick-euthyroid syndrome; K59.03 Drug induced constipation; M54.9 Dorsalgia, unspecified; E78.5 Hyperlipidemia, unspecified
CPT/HCPCS: 36415; 36569; 71275; 72146; 74177; 80048; 80053; 80202; 81001; 83690; 84443; 85025; 85027; 85652; 86140; 87040; 93005; 97161; 97165; 99284; Q9967; A4216; J0696; J2405

== ENCOUNTER → 2025-09-22 | Outpatient (CLI) | payer MEDICARE, SELFPAY ==
[2025-09-22 12:29] LABS: Hematocrit 32.5 % (37-47); Hemoglobin 11.1 g/dL (12.0-15.0); Mean Corp Hgb Conc 34.2 g/dL (32-36); Mean Corpuscular Volume 91.3 fL (81-99); Mean Platelet Vol. 9.7 fl (6.2-12.0); Platelet Count 308 K/mm3 (150-450); RBC Distribution Width CV 12.7 % (11.6-14.6); RBC Distribution Width SD 42.1 fl (35.1-43.9); Red Blood Count 3.56 M/mm3 (4.2-5.4); White Blood Count 6.8 K/mm3 (4.4-11.0)
[2025-09-22 12:40] LABS: AST(SGOT) 42 U/L (<=31); Alanine Aminotransfer ALT/SGPT 63 U/L (<=34); Albumin, Serum 4.1 g/dL (3.4-4.8); Alkaline Phosphatase 56 U/L (35-104); Anion Gap 12 (5-15); BUN 12 mg/dL (4-19); BUN/Creat Ratio 16.6 RATIO (10-20); Bilirubin, Direct < 0.08 mg/dL (0.00-0.30); Calcium,Total 9.5 mg/dL (7.6-11.0); Carbon Dioxide 23.2 mmol/L (21.0-32.0); Chloride 101 mmol/L (98-108); Globulin 2.9 g/dL (2.2-4.2); Glucose 83 mg/dL (70-99); Potassium 4.0 mmol/L (3.3-5.1)
== END | disposition home or self-care (01) ==
PROVIDERS: PCP Family Medicine; Referring Provider Internal Medicine Infectious Disease; Visit Provider Internal Medicine Infectious Disease
DX: M86.9 Osteomyelitis, unspecified (principal)
CPT/HCPCS: 80048; 80076; 85027; 85652

== ENCOUNTER → 2025-09-25 | Outpatient (CLI) | payer MEDICARE, SELFPAY ==
[2025-09-25 12:42] LABS: Vancomycin, Trough Level 17.8 ug/mL (5.0-15.0)
== END | disposition home or self-care (01) ==
LOC: LABSPEC 11:48
PROVIDERS: PCP Family Medicine; Referring Provider Internal Medicine Infectious Disease; Visit Provider Internal Medicine Infectious Disease
DX: M46.24 Osteomyelitis of vertebra, thoracic region (principal)
CPT/HCPCS: 80202

== ENCOUNTER → 2025-09-29 | Outpatient (CLI) | payer MEDICARE, SELFPAY ==
[2025-09-29 10:42] LABS: Hematocrit 31.9 % (37-47); Hemoglobin 10.8 g/dL (12.0-15.0); Mean Corp Hgb Conc 33.9 g/dL (32-36); Mean Corpuscular Volume 91.9 fL (81-99); Mean Platelet Vol. 9.9 fl (6.2-12.0); Platelet Count 261 K/mm3 (150-450); RBC Distribution Width CV 12.8 % (11.6-14.6); RBC Distribution Width SD 42.8 fl (35.1-43.9); Red Blood Count 3.47 M/mm3 (4.2-5.4); White Blood Count 4.4 K/mm3 (4.4-11.0)
[2025-09-29 11:16] LABS: Vancomycin, Trough Level 18.9 ug/mL (5.0-15.0)
[2025-09-29 11:18] LABS: AST(SGOT) 32 U/L (<=31); Alanine Aminotransfer ALT/SGPT 34 U/L (<=34); Albumin, Serum 4.2 g/dL (3.4-4.8); Alkaline Phosphatase 52 U/L (35-104); Anion Gap 13 (5-15); BUN 11 mg/dL (4-19); BUN/Creat Ratio 14.4 RATIO (10-20); Bilirubin, Direct 0.11 mg/dL (0.00-0.30); Calcium,Total 9.6 mg/dL (7.6-11.0); Carbon Dioxide 22.8 mmol/L (21.0-32.0); Chloride 100 mmol/L (98-108); Globulin 2.8 g/dL (2.2-4.2); Glucose 129 mg/dL (70-99); Potassium 4.0 mmol/L (3.3-5.1)
== END | disposition home or self-care (01) ==
LOC: LABSPEC 10:24
PROVIDERS: PCP Family Medicine; Visit Provider Internal Medicine Infectious Disease
DX: M46.24 Osteomyelitis of vertebra, thoracic region (principal)
CPT/HCPCS: 80048; 80076; 80202; 85027; 85652

== ENCOUNTER → 2025-10-06 | Outpatient (CLI) | payer MEDICARE, SELFPAY ==
[2025-10-06 12:57] LABS: Hematocrit 36.5 % (37-47); Hemoglobin 12.2 g/dL (12.0-15.0); Mean Corp Hgb Conc 33.4 g/dL (32-36); Mean Corpuscular Volume 91.3 fL (81-99); Mean Platelet Vol. 11.1 fl (6.2-12.0); Platelet Count 212 K/mm3 (150-450); RBC Distribution Width CV 12.8 % (11.6-14.6); RBC Distribution Width SD 43.1 fl (35.1-43.9); Red Blood Count 4.00 M/mm3 (4.2-5.4); White Blood Count 4.6 K/mm3 (4.4-11.0)
[2025-10-06 13:02] LABS: Vancomycin, Trough Level 19.8 ug/mL (5.0-15.0)
[2025-10-06 13:07] LABS: AST(SGOT) 26 U/L (<=31); Alanine Aminotransfer ALT/SGPT 28 U/L (<=34); Albumin, Serum 4.6 g/dL (3.4-4.8); Alkaline Phosphatase 53 U/L (35-104); Anion Gap 13 (7-18); BUN 17 mg/dL (4-19); BUN/Creat Ratio 20.0 RATIO (10-20); Bilirubin, Direct 0.11 mg/dL (0.00-0.30); Calcium,Total 10.1 mg/dL (7.6-11.0); Carbon Dioxide 23.1 mmol/L (20.0-29.0); Chloride 103 mmol/L (96-106); Globulin 2.9 g/dL (2.2-4.2); Glucose 113 mg/dL (70-99); Potassium 4.1 mmol/L (3.5-5.1)
== END | disposition home or self-care (01) ==
LOC: LABSPEC 12:30
PROVIDERS: PCP Family Medicine; Referring Provider Internal Medicine Infectious Disease; Visit Provider Internal Medicine Infectious Disease
DX: M46.24 Osteomyelitis of vertebra, thoracic region (principal)
CPT/HCPCS: 80048; 80076; 80202; 85027; 85652